=== PATIENT | female | born 1960 | race Caucasian/White ===

== ENCOUNTER → 2017-12-10 | Outpatient (CLI) | payer BC ==
[2017-12-10 10:37] LABS: BASO % 0.7 % (0.0-1.0); EOS # 0.1 10^3/uL (0.0-0.50); EOS % 2.1 % (0.0-3.0); HEMATOCRIT 34.6 % (36.0-47.0); HEMOGLOBIN 10.7 g/dl (12.0-15.5); IMMATURE GRANULOCYTE % 0.4 % (0-3.0); LYMPH # 2.1 10^3/uL (1.5-4.5); LYMPH % 36.6 % (24.0-44.0); MEAN CORPUSCULAR HEMOGLOBIN 24.4 pg (27.0-33.0); MEAN CORPUSCULAR HGB CONC 30.9 g/dl (32.0-36.5); MEAN CORPUSCULAR VOLUME 78.8 fl (80.0-96.0); MONO # 0.4 10^3/uL (0.0-0.8); MONO % 7.8 % (0.0-5.0); NEUTROPHILS % 52.4 % (36.0-66.0); PLATELET COUNT, AUTOMATED 223 10^3/uL (150-450); RED BLOOD COUNT 4.39 10^6/uL (4.00-5.40); RED CELL DISTRIBUTION WIDTH 15.7 % (11.5-14.5); WHITE BLOOD COUNT 5.7 10^3/uL (4.0-10.0)
[2017-12-10 11:02] LABS: ALBUMIN 3.3 GM/DL (3.2-5.2); ALBUMIN/GLOBULIN RATIO 0.97 (1.00-1.93); ALKALINE PHOSPHATASE 109 U/L (45-117); ALT/SGPT 18 U/L (12-78); ANION GAP 8 MEQ/L (8-16); AST/SGOT 11 U/L (7-37); BILIRUBIN,TOTAL 0.4 MG/DL (0.2-1.0); BLOOD UREA NITROGEN 15 MG/DL (7-18); CALCIUM LEVEL 8.4 MG/DL (8.5-10.1); CARBON DIOXIDE LEVEL 26 MEQ/L (21-32); CHLORIDE LEVEL 113 MEQ/L (98-107); CHOLESTEROL LEVEL 184 MG/DL (<200); CHOLESTEROL RISK RATIO 3.066 (<5); CREATININE FOR GFR 0.83 MG/DL (0.55-1.30); GLOMERULAR FILTRATION RATE > 60.0 (>51); GLUCOSE, FASTING 87 MG/DL (70-100); HDL CHOLESTEROL 60 MG/DL (>40); NON-HDL-C 124 MG/DL; POTASSIUM SERUM 4.1 MEQ/L (3.5-5.1); SODIUM LEVEL 147 MEQ/L (136-145); TOTAL PROTEIN 6.7 GM/DL (6.4-8.2); TRIGLYCERIDES LEVEL 110 MG/DL (<150)
== END ==
LOC: M LAB 09:35
DX: I10 Essential (primary) hypertension (principal)
CPT/HCPCS: 84443

== ENCOUNTER → 2017-12-13 | Outpatient (REF) | payer BC ==
[2017-12-14 14:11] LABS: FERRITIN 4 NG/ML (8-252)
== END ==
LOC: M LAB REF 12-14 13:23
DX: D50.9 Iron deficiency anemia, unspecified (principal); Z98.84 Bariatric surgery status
CPT/HCPCS: 82728

== ENCOUNTER → 2018-04-18 | Outpatient (REF) | payer BC ==
[2018-04-18 16:39] LABS: FERRITIN 4 NG/ML (8-252)
== END ==
LOC: M LAB REF 15:52
DX: D50.9 Iron deficiency anemia, unspecified (principal)
CPT/HCPCS: 82728

== ENCOUNTER → 2018-10-20 | Outpatient (CLI) | payer BC ==
[~2018-10-20] MED LIST: /FEXO18TA PO; ADV250INH INH; BENA25CA PO; BLINK EYE DROPS OU; CELE1CAP4 PO; COUM1TAB18 PO; LISI20TA PO; LISINOPRIL/HCTZ PO; LISIPOW PO; MAPA500T17 PO; NORVASC PO; OMEPPOW18 PO; OXYC1TAB23 PO; OXYC30TA4 PO; PERC7.5T12 PO; PROVENTIL INHALER INH; TYLE325T5 PO; TYLENOL PO; VENTAER INH; VITAMIN D PO; ZOLOFT PO
--- NOTE | 2018-10-20 10:57 | REP ---
Clinical: Contusion. Technique: AP, lateral, bilateral oblique views of the left wrist. Findings: Subtle injury involving the ulnar styloid cannot be excluded and may represent acute versus chronic injury. Clinical correlation is recommended. Remainder of the left wrist appears normal and without further acute injury. Impression: Cannot exclude very subtle acute versus chronic injury to the ulnar styloid. Electronically Signed by Tom Peralta MD 10/20/2018 10:49 A
== END ==
LOC: M ADAMS 10:28
PROVIDERS: ATTEND Physician Assistant Medical
DX: S60.212A Contusion of left wrist, initial encounter (principal); X58.XXXA Exposure to other specified factors, initial encounter; Y92.9 Unspecified place or not applicable

== ENCOUNTER → 2020-05-20 | Outpatient (REF) | payer BC ==
[2020-05-21 13:06] LABS: C REACTIVE PROTEIN QUANTITATIV 0.35 MG/DL (0.00-0.30); RHEUMATOID FACTOR QUANT < 10.0 IU/ML (<15.0)
[2020-05-23 12:07] LABS: ANTINUCLEAR ANTIBODIES DIRECT Negative (Negative)
== END ==
LOC: M LAB REF 12:16
PROVIDERS: ATTEND Family Medicine
DX: M25.50 Pain in unspecified joint (principal)

== ENCOUNTER → 2020-12-28 | Outpatient (REF) | payer BC ==
[~2020-12-28] MED LIST changes: +ALBU83IN INH; +AMLO1TAB25 PO; +AZEL0.055; +CEPH500T PO; +CHLO25TA PO; +FAMO1TAB11 PO; +LISI40TA4 PO; +MULT1TAB8 PO; +NITR100C2; +NOXI1TAB PO; +OMEP1CAP73 PO; +SERT-141 PO; +SLOW142T5 PO; +SPIR-10 PO
== END ==
LOC: M LAB REF 12:23
PROVIDERS: ATTEND Family Medicine
DX: D64.9 Anemia, unspecified (principal)

== ENCOUNTER → 2021-03-01 | Outpatient (CLI) | payer BC ==
[~2021-03-01] MED LIST changes: -ALBU83IN INH; -AMLO1TAB25 PO; -AZEL0.055; -CEPH500T PO; -CHLO25TA PO; -FAMO1TAB11 PO; -LISI40TA4 PO; -MULT1TAB8 PO; -NITR100C2; -NOXI1TAB PO; -OMEP1CAP73 PO; +PROHANCE 279.3MG/ML 15ML VIAL As Ordered ONE; +PROHANCE 279.3MG/ML 5ML VIAL As Ordered ONE; -SERT-141 PO; -SLOW142T5 PO; -SPIR-10 PO
--- NOTE | 2021-03-04 08:45 | REP ---
INDICATION: ABNORMAL FINDINGS ON DX IMAGING OF [facility] BODY STRUCTURES. COMPARISON: CT from outside institution dated 01/31/2021 TECHNIQUE: Limited noncontrast MRI of the mediastinum including T1, T2, and fat saturated coronal and axial sequences. FINDINGS: Evaluation is limited due to cardiac and respiratory motion artifact. The suspicious anterior mediastinal abnormality suggested by prior CT corresponds to a nodular area in the anterior mediastinum/aortopulmonary window which contains nodular soft tissue and surrounding fat measuring roughly 3.4 x 2.1 x 2.5 cm likely represent conglomerate of nonspecific and likely normal lymph nodes versus small amount of residual thymic tissue. In correlation with recent CT, the findings appear essentially benign. Further evaluation of the mediastinum demonstrates relatively normal appearance to the thoracic aorta, pulmonary vasculature, and visualized portions of the heart/pericardium. Subtle patchy bilateral airspace disease cannot be excluded and should be correlated clinically. IMPRESSION: 1. Abnormality in question likely represents nonspecific benign conglomerate of normal sized lymph nodes versus small amount of residual thymic tissue. Evaluation by MRI is limited due to associated cardiac motion. Consider follow-up contrast-enhanced chest CT at 6-9 months to confirm stability/benignity. 2. Limited views of the surrounding lung zones suggests subtle patchy airspace disease which should be correlated with auscultation and physical examination. <Electronically signed by Tom Peralta > 03/04/21 [id number]
== END ==
LOC: M RAD 17:32
PROVIDERS: ATTEND Physician Assistant Medical
DX: R93.89 Abnormal findings on diagnostic imaging of other specified body structures (principal)
CPT/HCPCS: 71550; A9576

== ENCOUNTER → 2021-03-05 | Outpatient (CLI) | payer BC ==
[~2021-03-05] MED LIST changes: -PROHANCE 279.3MG/ML 15ML VIAL As Ordered ONE; -PROHANCE 279.3MG/ML 5ML VIAL As Ordered ONE
--- NOTE | 2021-03-08 17:00 | SLEEPCENT ---
DATE: 03/05/2021 ORDERED BY: RIVER Mandujano Nocturnal polysomnography was performed for the titration of pressure therapy in this patient with obstructive sleep apnea syndrome, apnea hypopnea index of 37.1. For testing, the patient was fit with a ResMed F20 full face mask of medium size, 14 cm of water pressure were applied to the circuit and the lights were extinguished. Nine hours and 4 minutes of data were reviewed. There were 354 minutes of sleep identified. Sleep latency was prolonged at 34.5 minutes, REM latency was prolonged at 430 minutes. Sleep architecture improved late in the study and there was one REM cycle. Overall, sleep efficiency 66%. The electrocardiogram showed a sinus rhythm with an average heart rate of 55 beats per minute. EEG showed normal waveforms for wake and sleep. Respiratory events were fully palliated with CPAP to a pressure of 16. There is some activity in the limb leads. Limb movement arousal index was 11.5. IMPRESSIONS: Obstructive sleep apnea syndrome (G47.33). RECOMMENDATION: Nightly use of pressure therapy 16 cm of water. cc: PASCALE BENNETT MD
== END ==
LOC: M SLEEP 20:00
PROVIDERS: ATTEND Physician Assistant
DX: G47.33 Obstructive sleep apnea (adult) (pediatric) (principal)

== ENCOUNTER → 2021-03-15 | Outpatient (CLI) | payer BC ==
--- NOTE | 2021-03-15 15:17 | REP ---
INDICATION: BILATERAL DIAG DENSITY SEEN ON CT/LEFT. COMPARISON: Screening mammogram, 03/06/2013 and bilateral breast ultrasound, same day. TECHNIQUE: 2D and 3D cc and MLO images of both breasts were obtained. Focal compression 3D images of the left breast were obtained. Multiple ultrasound images of both breasts were obtained. FINDINGS: The Volpara volumetric breast density pattern is a, the breasts are almost entirely fatty. There is a circumscribed mass in the upper-outer quadrant of the left breast demonstrating dystrophic calcifications consistent with a benign degenerating fibroadenoma. In the middle 3rd of the left breast, below and medial to the nipple, in the lower inner quadrant, there is an oval, circumscribed, isodense mass measuring 14 mm in diameter. In the anterior 3rd of the right breast, directly deep to and lateral to the nipple, at the 9 o'clock position, there is an oval, circumscribed, isodense mass measuring 9 mm in diameter. Right breast ultrasound: 10 o'clock, 5 cm from the nipple, 4 x 4 x 3 mm, simple cyst. Left breast ultrasound: 9 o'clock, 7 cm from the nipple, 10 x 7 x 7 mm, oval, circumscribed, hypoechoic mass, with no posterior features. Shear wave in stress elastography are consistent with benignity. IMPRESSION: BIRADS/ACR 2: Benign finding This mammogram was interpreted with the aid of an FDA-approved computer-aided detection system. The patient letter being requested is M2. RECOMMENDATION: Repeat screening mammography recommended 1 year (for women over 40). <Electronically signed by Mynor Tenorio > 03/15/21 [id number]
== END ==
LOC: M WHC 10:40
PROVIDERS: ATTEND Physician Assistant Medical
DX: R93.89 Abnormal findings on diagnostic imaging of other specified body structures (principal); N63.25 Unspecified lump in the left breast, overlapping quadrants
CPT/HCPCS: 76642; 77066; G0279

== ENCOUNTER → 2021-03-26 | Outpatient (CLI) | payer BC ==
[~2021-03-26] MED LIST changes: +ALBU83IN INH; +AMLO1TAB25 PO; +CHLO25TA PO; +LISI40TA4 PO; +OMEP1CAP73 PO; +SERT-141 PO; +SPIR-10 PO
== END ==
LOC: M LABSMTC 09:14
PROVIDERS: ATTEND Anesthesiology
DX: Z01.812 Encounter for preprocedural laboratory examination (principal); Z20.822 Contact with and (suspected) exposure to COVID-19

== ENCOUNTER → 2021-03-31 | Outpatient (CLI) | payer BC ==
[~2021-03-31] MED LIST changes: +CEPH500T PO
== END ==
LOC: M LABSMTC 12:48
PROVIDERS: ATTEND Anesthesiology
DX: Z01.818 Encounter for other preprocedural examination (principal); Z11.52 Encounter for screening for COVID-19

== ENCOUNTER 2021-04-01 07:29 | Day surgery (SDC) | payer BC ==
[~2021-04-01] VITALS: Ht 162.6 cm; Wt 123.5 kg
[~2021-04-01 07:29] MED LIST changes: -CEPH500T PO; +LIDOCAINE 2% 100MG/5ML SDV (FOR ANES.) As Ordered ONE; +NS 1,000 ML IV ONE; +fentaNYL 100 MCG/2 ML INJECTION (J3010) As Ordered ONE; +propofoL 200 MG/20 ML VIAL As Ordered ONE
--- OUTSIDE RECORDS SUMMARY | 2021-04-01 07:35 | CCD | Continuity of Care Document ---
Author Author Cheyenne ROGERS PA Organization Unknown Address [address] [place] [address] Phone [phone] Care Team Providers Care Button Riveter Name Role Phone Carter Silva M.D. [facility] [phone] Problems Active Problems Provider Date Acute pharyngitis Shlomo Hill.Pop Onset: 09/11/2018 Cough Imtiaz Norman D.O. Onset: 09/26/2016 Mild intermittent asthma Shaun HillO. Onset: 09/27/19 17 Obstructive sleep apnea syndrome Shlomo Hill.O. Onset: 03/16/2016 Mild intermittent asthma Imtiaz Norman D.O. Onset: 03/16/20 16 Essential hypertension Tariq Davis JR, MD Onset: 01/28/20 21 Allergic asthma without status asthmaticus Tariq Mandujano MD Onset: 01/27/2021 Social History Type Date Description Comments Sex Unknown ETOH Use Rarely consumes alcohol less amarjit n 5 drinks a year Tobacco Use Start: Unknown Denies Smoking Recreational Drug Use Denies Drug Use Smoking Status Reviewed: 02/09/21 Denies Smoking Allergies, Adverse Reactions, Alerts Active Allergies Criticality Reaction | Severity Comments Date Catapres-TTS Unable to assess criticality 03/16/2016 Tetracyclines & Related Unable to assess criticality 03/16/2016 Medications Active Medications SIG Qnty Indications Ordering Provide r Date Ventolin HFA 108(90Base) mcg/Act A erosol Use 2 Inhalations Every 4 Hours as Needed 54units Imtiaz vicente, D.O. 03/06/2018 Ipratropium [place]/Albuterol Sulfate 0.5-2.5(3)mg/3ML Solution 1 vial via neb four times a day as needed 360ml Imtiaz Norman D.O. 03/06/2018 Montelukast Sodium 10mg Tablets Take 1 Tablet Daily 90tabs J45.20 Imtiaz Norman D.O. 09/26/2016 CPAP +14 LCW Unknown Vitamin D (Ergocalciferol) [id number] Capsules take one capsule by mouth once weekly Unk nown Iron 325(65Fe) mg Tablets 1 by mouth every day Unknown Multivitamin Adult Tablets 1 by mouth every day Unknown Spironolactone 25mg Tablets 1 by mouth every day Unknown Chlorthalidone 1 tab by mouth every day Unknown Amlodipine Besylate 10mg Tablets One tab daily Carter Silva M.D. Sertraline HCL 100mg Tablets One tab daily Carter Silva M.D. Lisinopril 40mg Tablets one t ab daily Carter Silva M.D. Omeprazole Unknown Immunizations CPT Code Status Date Vaccine Lot # [id number] Given 03/16/2016 Influenza Virus Split 3 Yrs And Above For Intramuscular Use [id number] Vital Signs Date Vital Result Comment 02/09/2021 9:08am BP Systolic 125 mmHg BP Diastolic 78 mmHg Heart Rate 82 /min O2 % BldC Oximetry 99 % Height 64.75 inches 5'4.75" Weight 271.00 lb BMI (Body Mass Index) 45.4 kg/m2 [place] Body Weight 120 lb Weight 122.926 kg BSA (Body Surface Area) 2.24 m2 01/27/2021 9:16am BP Systolic 137 mmHg BP Diastolic 83 mmHg Heart Rate 61 /min Body Temperature 97.8 F Height 64.75 inches 5'4.75" Weight 273.38 lb BMI (Body Mass Index) 45.8 kg/m2 [place] Body Weight 120 lb Weight 124.003 kg BSA (Body Surface Area) 2.25 m2 Results Test Acquired Date Facility Test Result H/L Range Note FVL/[place] 02/09/2021 [facility] SEE IMAGE FVC-Pred 3.21 L FVC-Pre 3.92 L FVC-%Pred-Pre 122 L FVC-LLN 2.54 L Fev1-Pred 2.49 L Fev1-Pre 3.08 L Fev1-%Pred-Pre 123 L Fev1-LLN 1.92 L Fev6-Pred 3.10 L Fev6-Pre 3.92 L Fev6-%Pred-Pre 126 L Fev6-LLN 2.44 L Gqt0ooh-Jjzw 78 % Zhn3nyn-Yfx 79 % Vtl2zgk-%Pred-Pre 100 % Czh1sue-LFE 68 % Rhq7los-Plww 97 % Pkj0hyu-Ndt 100 % Dua1vqg-%Pred-Pre 103 % FEFMax-Pred 6.19 L/E/sec FEFMax-Pre 5.83 L/E/sec FEFMax-%Pred-Pre 94 L/E/sec FEFMax-LLN 4.53 L/E/sec Nnm2650-Tkqm 2.34 L/E/sec Pjv3829-Xht 2.87 L/E/sec Lir5232-%Pred-Pre 122 L/E/sec Boa3364-CZQ 1.13 L/E/sec ExpTime-Pre 5.99 sec Yls0ixg1-Emlo 81 % Kpj9ujo3-Amz 79 % Iou7qhv6-%Pred-Pre 97 % Csq5vbj1-MGS 72 % Procedures Date Code Description Status 01/27/2021 95274 Office/Outpatient New Low MDM 30 -44 Minutes Completed Medical Devices Description No Information Available Encounters Type Date Location Provider Dx Diagnosis Office Visit 01/27/2021 9:15a [facility] Tariq celestin JR, MD K21.9 Gastro-esophageal reflux disease without esophagitis Z12.11 Encounter for screening for malignant neoplasm of colon Assessments Date Code Description Provider 02/09/2021 J45.20 Mild intermittent asthma, uncomp licated REUBEN Ordoñez 02/09/2021 G47.33 Obstructive sleep apnea (adult) (pediatric) REUBEN Ordoñez 01/27/2021 K21.9 Gastro-esophageal reflux disease without esophagitis Tariq Davis JR, MD 01/27/2021 Z12.11 Encounter for screening for gigi gnant neoplasm of colon Tariq Davis JR, MD Plan of Treatment Future Appointment(s):* 04/28/2021 8:30 am - REUBEN Ordoñez at [facility] Pulmonary/Thoracic * 03/05/2021 7:45 pm - [facility] Sleep Lab at [facility] Pulmonary/Thoracic * 04/14/2021 11:00 am - REUBEN Matthew at [facility] Surgery Practice * 04/01/2021 8:00 am - Tariq Davis JR, MD at [facility] 02/09/2021 - REUBEN Ordoñez* J45.20 Mild intermittent asthma, uncomplicated * G47.33 Obstructive sleep apnea (adult) (pediatric) * * Comments:* 1. Given weight gain, intolerance to pressure therapy and ongoing daytime sleepiness despite therapy, [facility]she [facility]. * Follow up:* 1. Follow up six-eight weeks after retitration with a download to monitor compliance and tolerance of pressure therapy. Functional Status Functional Condition Comment Date Status Independent with all ADL's Activ e Independent with all IADL's Acti ve Mental Status Mental Condition Comment Date Status Cognitive ability not impaired A ctive Referrals Refer to Reason for Referral Status Appt Date Tariq Davis JR, MD EGD COLONOSCOPY Scheduled 01/28/[address] [place] [id number] [phone]
--- OUTSIDE RECORDS SUMMARY | 2021-04-01 07:35 | CCD | Continuity of Care Document ---
Author Author Cheyenne ROGERS PA Organization Unknown Address [address] [place] [address] Phone [phone] Care Team Providers Care Electric Shaver Mechanic Name Role Phone Carter Silva M.D. [facility] [phone] Problems Active Problems Provider Date Acute pharyngitis [...] Needed 54units Imtiaz vicente, D.O. 03/06/2018 Ipratropium [place]/Albuterol Sulfate 0.5-2.5(3)mg/3ML Solution 1 vial via neb four times a day as needed 360ml Imtiaz Norman D.O. 03/06/2018 Montelukast Sodium 10mg Tablets Take 1 Tablet Daily 90tabs J45.20 Imtiaz Norman D.O. 09/26/2016 CPAP +14 LCW Unknown Vitamin D (Ergocalciferol) 35232Ktyt Capsules take one capsule by mouth once [...] CPT Code Status Date Vaccine Lot # [id number] Given 03/16/2016 Influenza Virus Split 3 Yrs And Above For Intramuscular Use [id number] Vital Signs Date Vital Result Comment 02/09/2021 9:08am BP Systolic 125 mmHg BP Diastolic 78 mmHg Heart Rate 82 /min O2 % BldC Oximetry 99 % Height 64.75 inches 5'4.75" Weight 271.00 lb BMI (Body Mass Index) 45.4 kg/m2 [place] Body Weight 120 lb Weight 122.926 kg BSA (Body Surface Area) 2.24 m2 01/27/2021 9:16am BP Systolic 137 mmHg BP Diastolic 83 mmHg Heart Rate 61 /min Body Temperature 97.8 F Height 64.75 inches 5'4.75" Weight 273.38 lb BMI (Body Mass Index) 45.8 kg/m2 [place] Body Weight 120 lb Weight 124.003 kg [...] L Fev6-%Pred-Pre 126 L Fev6-LLN 2.44 L Aip4rpk-Olwa 78 % Tlw1css-Imw 79 % Ogd8jro-%Pred-Pre 100 % Sqf5nux-PIG 68 % Xqk7zwe-Vovg 97 % Hdj1lhk-Ail 100 % Pff5iji-%Pred-Pre 103 % FEFMax-Pred 6.19 L/E/sec FEFMax-Pre 5.83 L/E/sec FEFMax-%Pred-Pre 94 L/E/sec FEFMax-LLN 4.53 L/E/sec Yyg0641-Tsyu 2.34 L/E/sec Kej5112-Vts 2.87 L/E/sec Frp5151-%Pred-Pre 122 L/E/sec Chs7660-ZJV 1.13 L/E/sec ExpTime-Pre 5.99 sec Bzw8oiv1-Zkhq 81 % Dmf7kgn6-Dop 79 % Dyt2wjf8-%Pred-Pre 97 % Aay1rcj9-SWM 72 % Procedures Date Code Description Status 01/27/2021 42463 Office/Outpatient New Low MDM 30 -44 Minutes Completed Medical Devices Description No Information Available Encounters Type Date Location Provider Dx Diagnosis Office Visit 01/27/2021 9:15a [facility] Tariq celestin JR, MD K21.9 [...] 04/28/2021 8:30 am - REUBEN Ordoñez at [facility] Pulmonary/Thoracic * 03/05/2021 7:45 pm - [facility] at [facility] Pulmonary/Thoracic * 04/14/2021 11:00 am - REUBEN Matthew at [facility] * 04/01/2021 8:00 am - Tariq Davis JR, MD at [facility] 02/09/2021 - REUBEN Ordoñez* J45.20 Mild [...] JR, MD EGD COLONOSCOPY Scheduled 01/28/[address] [place] [id number] [phone]
--- OUTSIDE RECORDS SUMMARY | 2021-04-01 07:35 | CCD | Continuity of Care Document ---
Author Author Cheyenne BENNETT M.D. Organization Unknown Address [address] [address] Phone [phone] Care Team Providers Care Table Top Tile Setter Name Role Phone Imtiaz Norman AUTM [phone] Carter Bennett MD AUTM [phone] Problems Active Problems Provider Date Esophageal reflux finding Onset: 010 Degenerative joint disease involving multiple joints Onset: 03/30/2009 Drug-induced hyperglycemia Onset: 2007 Allergic rhinitis Onset: 04/17/2008 Asthma Onset: 04/12/2008 Depressive disorder Onset: 03/30/2008 Hypertensive disorder Onset: 09/22/2007 Central obesity Onset: 04/20/2007 Mixed hyperlipidemia Onset: 12/31/2006 Social History Type Date Description Comments Sex Unknown ETOH Use Rarely consumes alcohol Tobacco Use Start: Unknown Patient has never smoked Allergies, Adverse Reactions, Alerts Active Allergies Criticality Reaction | Severity Comments Date Tetracycline Unable to assess criticality Moderate 03/18/2013 Catapres Unable to assess criticality Moderate 03/18/2013 Perfume HT52 Unable to assess criticality Severe, throat swelling 09/28/2011 Medications Active Medications SIG Qnty Indications Ordering Provide r Date Atorvastatin Calcium 20mg Tablets 1 by mouth every day (Cardiology) 90tabs Contreras Kim 12/28/2020 Vitamin D3 50mcg (1999) Capsule s 1 by mouth every day 30chivo Bennett M.D. 08/12/[address] 1 by mouth every day 90chivo Bennett M.D. 06/02/2020 Sertraline HCL 100mg Tablets 1 by mouth every day 90Tablet Carter Bennett M.D. 05/28/2019 Spironolactone 25mg Tablets 1 by mouth every day 90tabs I10 Carter Bennett M.D. 01/19/2016 Ferrous Sulfate 325mg Tablets one tab PO daily 90tabs E61.1 Carter Bennett M.D. 12/02/2015 Nasonex 50mcg/Act Suspension 1 spray each nostril twice a day as needed 17gm Ysabel Kim 10/14/2015 Norvasc 10mg Tablets 1 tablet, 1 time per day, for 90 days 90tabs Carter Bennett M.D. Epipen 2-Saeed 0.3mg/0 .3ML Solution Auto-Inject use as directed, for 90 days Unknown Symbicort 160-4.5mcg/Act Aerosol 2 inhalations twice daily 3units Carter Bennett M.D. Lisinopril 40mg Tablets 1 by mouth every day 90tabs Carter Bennett M.D. Chlorthalidone 25mg Tablets take one tablet by mouth every morning 90tabs Ysabel Kim Montelukast Sodium 10mg Tablets one before bedtime daily Unknown History Medications Amoxicillin/Clavulanate Potassium 875-125mg Tablets 1 tab by mouth twice daily for 10 days 20tabs Adama Bennett M.D. 08/03/2020 - 12/28/2020 Immunizations CPT Code Status Date Vaccine Lot # U-Flu Given 02/20/2018 Influenza,Unspecified 24300 Given 03/05/2014 Influenza Virus Vaccine 00145 Given 02/26/2013 Influenza Virus Vaccine 69688 Given 01/16/2013 Adacel- Tetanus Diphtheria P ertussis (Age64 & Under) 66833 Given 03/07/2012 Influenza Virus Vaccine 00409 Given 2010 Influenza Virus Vaccine Vital Signs Date Vital Result Comment 12/28/2020 12:01pm BP Systolic 152 mmHg BP Diastolic 80 mmHg BP Systolic Recheck 155 mmHg BP Diastolic Recheck 82 mmHg Heart Rate 78 /min Height 63 inches 5'3" Weight 272.00 lb BMI (Body Mass Index) 48.2 kg/m2 08/03/2020 1:00pm BP Systolic 148 mmHg BP Diastolic 90 mmHg BP Systolic Recheck 132 mmHg BP Diastolic Recheck 85 mmHg Heart Rate 76 /min Height 63 inches 5'3" Weight 267.00 lb BMI (Body Mass Index) 47.3 kg/m2 Results Test Acquired Date Facility Test Result H/L Range Note Laboratory test finding 12/28/2020 [facility] [address] [place] [address] [phone] Ferritin 5 NG/ML Low 8-252 Complete Blood Count 12/28/2020 [facility] [employer] [employer] [facility] Director Emergency Services: [place] [address] [phone] WBC 6.0 x10*3/UL 4.1 - 10.9 1 RBC 4.96 x10*6/UL 4.20 - 6.30 Hemoglobin 10.9 g/dL Low 12.0 - 18.0 Hematocrit 33.8 % Low 37.0 - 51.0 MCV 68.1 fL Low 80.0 - 97.0 MCH 21.9 pg Low 26.0 - 32.0 MCHC 32.1 g/dL 31.0 - 38.0 RDW 15.3 % High 11.6 - 13.7 PLT 267 x10*3/UL 140 - 440 MPV 8.5 FL 7.8 - 11.0 Lymph % 34.5 % 10.0 - 58.5 Mid % 7.3 % 1.7 - 9.3 Neut % 58.2 % 37.0 - 92.0 Lymph # 2.0 x10*3/UL 0.6 - 4.1 Mid # 0.5 x10*3/UL 0.1 - 0.6 Neut # 3.5 x10*3/UL 2.0 - 7.8 Comprehensive Chem Profile 12/28/2020 [facility] deysi Taylor Director Emergency Services: [place] [address] [phone] Glucose 101 mg/dL High 74 - 99 2 BUN 17 mg/dL 7 - 18 Creatinine 0.9 mg/dL 0.6 - 1.3 Sodium 143 mEq/L 136 - 145 Potassium 3.8 mEq/L 3.5 - 5.1 Chloride 105 mEq/L 98 - 107 Carbon Dioxide 33 mEq/L High 21 - 32 Calcium 8.9 mg/dL 8.5 - 10.1 Alk. Phosphatase 154 mg/dL High 46 - 116 3 Total Bilirubin 0.3 mg/dL 0.2 - 1.0 Ast (Sgot) 14 U/L Low 15 - 37 Alt (SGPT) 22 U/L 12 - 78 Albumin 3.3 g/dL Low 3.4 - 5.0 Total Protein 6.6 g/dL 6.4 - 8.2 A/G Ratio 1.00 CALC 1.00 - 1.90 GFR >= 60 mL/min >60 GFR >= 60 mL/min >60 4 Lipid Profile 12/28/2020 [facility] , Director Emergency Services: [place] [address] [phone] Cholesterol 227 mg/dL High 131 - 200 Triglycerides 191 mg/dL High 30 - 150 HDL Cholesterol 53 mg/dL 35 - 60 LDL (Calculated) 136 CALC 50 - 159 Laboratory test finding 12/28/2020 [facility] [employer] jaziel Director Emergency Services: [place] [address] [phone] Thyroid Stimulating Hormone 3.21 uIU/mL 0.3 6 - 3.74 Laboratory test finding 12/28/2020 [facility] [employer] jakub Director Emergency Services: [place] [address] [phone] Vitamin D 25-Hydroxy 33.8 ng/ml 24.0 - 80.0 5 1 NOTE: CBC VERIFIED 2 100-125 mg/dL PRE-DIABET ES/FASTING >126 mg/dL DIABETES/FASTING 3 NOTE: RESULT VERIFIED. 4 CHRONIC KIDNEY DISEASE STAGI NG PER NKF STAGE I & II GFR >= 60 NORMAL TO MILDLY DECREASED STAGE III GFR 30-59 MODERATELY DECREASED STAGE IV GFR 15-29 SEVERELY DECREASED STAGE V GFR <15 VERY LITTLE GFR LEFT ESRD GFR <15 ON TIRE TECHNICIAN 5 This test was performed shayla cardenas [employer] Vitamin D immunoassay kit. Values obtained with different assay methods should not be used interchangeably. Procedures Date Code Description Status 12/28/2020 21353 Office/Outpatient Established Mo d MDM 30-39 Min Completed 08/03/2020 08910 Office/Outpatient Established Mo d MDM 30-39 Min Completed 03/06/2013 [id number] Mammogram Completed 07/11/2011 [id number] Colonoscopy Completed Medical Devices Description No Information Available Encounters Type Date Location Provider Dx Diagnosis Office Visit 12/28/2020 11:30a [facility] InternSherly sheriff M.D. D64.9 Anemia, unspecified R53.83 Other fatigue G47.33 Obstructive sleep apnea (laurent lt) (pediatric) I10 Essential (primary) hyperten abimael E55.9 Vitamin D deficiency, unspec ified J45.40 Moderate persistent asthma, uncomplicated F39 Unspecified mood [affective] disorder K21.9 Gastro-esophageal reflux dis ease without esophagitis Office Visit 08/03/2020 1:00p [facility] InternSherly sheriff M.D. I10 Essential (primary) hypertension G47.33 Obstructive sleep apnea (laurent lt) (pediatric) E55.9 Vitamin D deficiency, unspec ified D64.9 Anemia, unspecified J45.40 Moderate persistent asthma, uncomplicated F39 Unspecified mood [affective] disorder R51.9 Headache, unspecified R23.8 Other skin changes Z98.84 Bariatric surgery status K21.9 Gastro-esophageal reflux dis ease without esophagitis Assessments Date Code Description Provider 12/28/2020 D64.9 Anemia, unspecified Carter ballesteros M.D. 12/28/2020 R53.83 Other fatigue Carter Bennett M.D. 12/28/2020 G47.33 Obstructive sleep apnea (adult) (pediatric) Carter Bennett M.D. 12/28/2020 I10 Essential (primary) hypertension Carter Bennett M.D. 12/28/2020 E55.9 Vitamin D deficiency, unspecifie d Carter Bennett M.D. 12/28/2020 J45.40 Moderate persistent asthma, unco mplicated Carter Bennett M.D. 12/28/2020 F39 Unspecified mood [affective] dis order Carter Bennett M.D. 12/28/2020 K21.9 Gastro-esophageal reflux disease without esophagitis Carter Bennett M.D. 08/03/2020 I10 Essential (primary) hypertension Carter Bennett M.D. 08/03/2020 G47.33 Obstructive sleep apnea (adult) (pediatric) Carter Bennett M.D. 08/03/2020 E55.9 Vitamin D deficiency, unspecifie d Carter Bennett M.D. 08/03/2020 D64.9 Anemia, unspecified Carter ballesteros M.D. 08/03/2020 J45.40 Moderate persistent asthma, unco mplicated Carter Bennett M.D. 08/03/2020 F39 Unspecified mood [affective] dis order Carter Bennett M.D. 08/03/2020 R51.9 Headache, unspecified Carter pradhan M.D. 08/03/2020 R23.8 Other skin changes Carter gaviria M.D. 08/03/2020 Z98.84 Bariatric surgery status Carter Bennett M.D. 08/03/2020 K21.9 Gastro-esophageal reflux disease without esophagitis Carter Bennett M.D. Plan of Treatment Future Appointment(s):* 04/28/2021 2:30 pm - Carter [facility]D. at [facility] 12/28/2020 - Carter Bennett M.D.* D64.9 Anemia, unspecified * R53.83 Other fatigue * G47.33 Obstructive sleep apnea (adult) (pediatric) * I10 Essential (primary) hypertension * E55.9 Vitamin D deficiency, unspecified * J45.40 Moderate persistent asthma, uncomplicated * F39 Unspecified mood [affective] disorder * K21.9 Gastro-esophageal reflux disease without esophagitis * * Comments:* 1. Anemia: Chronic. Low hemoglobin and MCV. Await for ferritin level. Continue iron supplement at present dose. I have reviewed her prior colonoscopy and EGD results. She is going to have new EGD and colonoscopy soon at [facility] for anemia (she has not had as we discussed prior, I expressed my concern for her putting this off). We will continue to monitor her blood count.2. BRAD: Good results with the use of CPAP daily. Sees Bird ALEXIS & Dr. Norman at Pulmonary Medicine and will continue appropriate follow up.3. Hypertension: On recheck blood pressure remains high here but better when at home. Patient appears to have significant white coat component. We again discussed in detail today about her blood pressure control. Patient feels she is overmedicated and is not agreed to change her current regimen. She will continue to follow up with Dr. Rodriguez of Cardiology appropriately.4. Vitamin D deficiency: Added vitamin D to her labs drawn earlier today and will follow up. She had low vitamin D level on last check in 05/2019. Patient is currently on adequate supplementation. We will monitor. 5. Moderate persistent asthma: Generally stable on Symbicort. Seeing Bird at Pulmonary Medicine and will continue to use albuterol as needed. She has not seen ENT yet with history of vocal cord dysfunction.6. Mood [affective] disorder: She has been resistent to psych evaluation but has a counselor Katerin. I am going to talk with her sister regarding this and other symptoms (patient ok'd this). Otherwise, she has no thoughts or plans o f hurting herself or others. Continue present regimen as directed. We will monitor.7. Gastro-esophageal reflux disease without esophagitis: Good results with the use of omeprazole daily, will continue as directed.8. Other fatigue: This is not new, but has been worsened in the recent time after vacation. We discussed about possible etiologies in detail. She is going to see Pulmonary doctor in January and will also discuss about this. Ongoing cares: I am going to see her again in 4 months with labs to be determined. I spoke to her sister after her appointment and I am very concerned with her symptoms and lack of follow up) If she has new problems or issues sooner she will let us know. Functional Status Description No Information Available Mental Status Description No Information Available Referrals Refer to Reason for Referral Status Appt Date Tariq Davis JR, MD CONSULT FOR SCREENING EGD/CO LONOSCOPY DX: ANNALISE PT NEEDS 2 WK NOTICE FOR ANY APPTS DUE TO WORK Patient Notified 01/27/2021 [facility] General Surgery [address] [id number] [phone]
--- OUTSIDE RECORDS SUMMARY | 2021-04-01 07:35 | CCD | Continuity of Care Document ---
Author Author Cheyenne BENNETT M.D. Organization Unknown Address [address] [address] Phone [phone] Care Team Providers Care Web Services Professional Name Role Phone Imtiaz Norman AUTM [phone] Carter Bennett MD AUTM [phone] Problems Active Problems Provider Date Esophageal reflux [...] Vaccine Lot # U-Flu Given 02/20/2018 Influenza,Unspecified 68256 Given 03/05/2014 Influenza Virus Vaccine 21277 Given 02/26/2013 Influenza Virus Vaccine 89898 Given 01/16/2013 Adacel- Tetanus Diphtheria P ertussis (Age64 & Under) 84374 Given 03/07/2012 Influenza Virus Vaccine 59162 Given 2010 Influenza Virus Vaccine Vital Signs [...] H/L Range Note Laboratory test finding 12/28/2020 [facility] [address] [place] [address] [phone] Ferritin 5 NG/ML Low 8-252 Complete Blood Count 12/28/2020 [employer] [facility] Senior Copywriter: [place] [address] [phone] WBC 6.0 x10*3/UL 4.1 - 10.9 1 [...] 2.0 - 7.8 Comprehensive Chem Profile 12/28/2020 [employer] deysi Taylor Senior Copywriter: [place] [address] [phone] Glucose 101 mg/dL High 74 - 99 [...] 60 mL/min >60 4 Lipid Profile 12/28/2020 [employer] [facility] Senior Copywriter: Dr Geronimo [place] [address] [phone] Cholesterol 227 mg/dL High 131 - 200 Triglycerides 191 mg/dL High 30 - 150 HDL Cholesterol 53 mg/dL 35 - 60 LDL (Calculated) 136 CALC 50 - 159 Laboratory test finding 12/28/2020 [employer] Catering Driver jaziel Senior Copywriter: Dr Geronimo [place] [address] [phone] Thyroid Stimulating Hormone 3.21 uIU/mL 0.3 6 - 3.74 Laboratory test finding 12/28/2020 [employer] Catering Driver jakub Senior Copywriter: Dr Geronimo [place] [address] [phone] Vitamin D 25-Hydroxy 33.8 ng/ml 24.0 - [...] LITTLE GFR LEFT ESRD GFR <15 ON S[employer] HELPER 5 This test was performed shayla cardenas [employer] Vitamin D immunoassay kit. Values obtained with different assay methods should not be used interchangeably. Procedures Date Code Description Status 12/28/2020 24723 Office/Outpatient Established Mo d MDM 30-39 Min Completed 08/03/2020 00608 Office/Outpatient Established Mo d MDM 30-39 Min Completed 03/06/2013 [id number] Mammogram Completed 07/11/2011 [id number] Colonoscopy Completed Medical Devices Description No Information [...] ease without esophagitis Office Visit 08/03/2020 1:00p [employer] InternSherly sheriff M.D. I10 Essential (primary) hypertension [...] 2:30 pm - Carter Bennett M.D. at [employer] [facility] 12/28/2020 - Carter Bennett M.D.* D64.9 [...] have new EGD and colonoscopy soon at [facility] for anemia (she has not had as [...] APPTS DUE TO WORK Patient Notified 01/27/2021 [facility] General Surgery [address] [id number] [phone]
--- OUTSIDE RECORDS SUMMARY | 2021-04-01 07:35 | CCD | Continuity of Care Document ---
Author Author Cheyenne DAVIS MD Organization Unknown Address [address] [address] Phone [phone] Care Team Providers Care Director Social Name Role Phone Carter Silva M.D. AUTM [phone] Problems Active Problems Provider Date Acute pharyngitis Imtiaz Norman D.O. Onset: 09/11/2018 Cough Imtiaz Norman D.O. Onset: 09/26/2016 Mild intermittent asthma Imtiaz Norman D.O. Onset: 09/27/19 17 Obstructive sleep apnea syndrome Shaun HillO. Onset: 03/16/2016 Mild intermittent asthma Imtiaz Norman [...] Use Denies Drug Use Smoking Status Reviewed: 08/03/20 Denies Smoking Allergies, Adverse Reactions, Alerts Active Allergies Criticality Reaction | Severity Comments Date Catapres-TTS Unable to assess criticality 03/16/2016 Tetracyclines & Related Unable to assess criticality 03/16/2016 Medications Active Medications SIG Qnty Indications Ordering Provide r Date Ventolin HFA 108(90Base) mcg/Act A erosol Use 2 Inhalations Every 4 Hours as Needed 54units Imtiaz vicente, D.O. 03/06/2018 Ipratropium [place]/Albuterol Sulfate 0.5-2.5(3)mg/3ML Solution 1 vial via neb four times a day as needed 360ml Imtiaz Norman D.O. 03/06/2018 Montelukast Sodium 10mg Tablets Take 1 Tablet Daily 90tabs J45.20 Imtiaz Norman D.O. 09/26/2016 CPAP +14 LCW Unknown Vitamin D (Ergocalciferol) 64726Hdka Capsules take one capsule by mouth once [...] one t ab daily Carter Silva M.D. Immunizations CPT Code Status Date Vaccine Lot # [id number] Given 03/16/2016 Influenza Virus Split 3 Yrs And Above For Intramuscular Use [id number] Vital Signs Date Vital Result Comment 01/27/2021 9:16am BP Systolic 137 mmHg BP Diastolic 83 mmHg Heart Rate 61 /min Body Temperature 97.8 F Height 64.75 inches 5'4.75" Weight 273.38 lb BMI (Body Mass Index) 45.8 kg/m2 [place] Body Weight 120 lb Weight 124.003 kg BSA (Body Surface Area) 2.25 m2 08/03/2020 8:49am BP Systolic 140 mmHg BP Diastolic 86 mmHg Heart Rate 68 /min O2 % BldC Oximetry 97 % Room Air Height 63 inches 5'3" Weight 267.00 lb BMI (Body Mass Index) 47.3 kg/m2 [place] Body Weight 115 lb Weight 121.111 kg BSA (Body Surface Area) 2.19 m2 Results Test Acquired Date Facility Test Result H/L Range Note FVL/[place] 08/03/2020 [facility] SEE IMAGE FVC-Pred 3.21 L FVC-Pre 3.44 L FVC-%Pred-Pre 107 L FVC-LLN 2.54 L Fev1-Pred 2.49 L Fev1-Pre 2.72 L Fev1-%Pred-Pre 109 L Fev1-LLN 1.92 L Fev6-Pred 3.10 L Fev6-Pre 3.44 L Fev6-%Pred-Pre 110 L Fev6-LLN 2.44 L Mhb6kjv-Iwnh 78 % Fnf4vgy-Fjm 79 % Ldg6hwr-%Pred-Pre 101 % Nyc5srq-OQE 68 % Rfj0qsn-Repj 97 % Isw7pbx-Myu 100 % Xyd8rld-%Pred-Pre 103 % FEFMax-Pred 6.19 L/E/sec FEFMax-Pre 5.44 L/E/sec FEFMax-%Pred-Pre 87 L/E/sec FEFMax-LLN 4.53 L/E/sec Wpw9150-Ulno 2.34 L/E/sec Joi0579-Efu 2.57 L/E/sec Mdj0963-%Pred-Pre 110 L/E/sec Hgt5235-WWP 1.13 L/E/sec ExpTime-Pre 4.86 sec Fgz3okf1-Tzte 81 % Nuk9qtb1-Ezh 79 % Zcs8xml1-%Pred-Pre 97 % Blu8pke9-YNT 72 % Procedures Date Code Description Status 08/03/2020 68064 Office/Outpatient Established Lo w MDM 20-29 Min Completed 08/03/2020 41326 Spirometry Completed Medical Devices Description No Information Available Encounters Type Date Location Provider Dx Diagnosis Office Visit 08/03/2020 9:00a [facility] Pulmonary/Thoracic REUBEN Ordoñez J45.20 Mild intermittent asthma, uncomplicated G47.33 Obstructive sleep apnea (laurent lt) (pediatric) Assessments Date Code Description Provider 08/03/2020 J45.20 Mild intermittent asthma, uncomp licated REUBEN Ordoñez 08/03/2020 G47.33 Obstructive sleep apnea (adult) (pediatric) REUBEN Ordoñez Plan of Treatment Future Appointment(s):* 02/09/2021 9:30 am - Imtiaz Norman D.O. at [facility] Pulmonary/Thoracic 08/03/2020 - REUBEN Ordoñez* J45.20 Mild intermittent asthma, uncomplicated * G47.33 Obstructive sleep apnea (adult) (pediatric) * * New Labs:* FVL/[place], Scheduled: 02/09/21 * Follow up:* Follow up in 6 months with yessica, with Dr Norman Functional Status Functional Condition Comment Date Status Independent with all ADL's Activ e Independent with all IADL's Acti ve Mental Status Mental Condition Comment Date Status Cognitive ability not impaired A ctive Referrals Refer to Reason for Referral Status Appt Date Tariq Davis JR, MD EGD COLONOSCOPY Scheduled 01/28/[address] [place] [address] [phone]
--- OUTSIDE RECORDS SUMMARY | 2021-04-01 07:35 | CCD | Continuity of Care Document ---
Author Author Cheyenne ROMAN MT Organization Unknown Address [address] [place] [address] [place] [address] Phone [phone] Care Team Providers Care Patent Prosecution Attorney Name Role Phone Carter Silva MD [facility] [phone] Problems Description No Information Available Social History Type Date Description Comments Sex Unknown Tobacco Use Start: Unknown Never Smoked Cigarettes Smoking Status Reviewed: 03/29/21 Never Smoked Cigarettes ETOH Use Occasionally consumes alcohol Allergies and adverse reactions Active Allergies Criticality Reaction | Severity Comments Date Tetracycline Unable to assess criticality rash 10/20/2018 Catapres Unable to assess criticality rash 10/20/2018 Inactive Allergies NKDA Unable to assess criticality 10/20/2018 Medications Active Medications SIG Qnty Indications Ordering Provide r Date Cephalexin 500mg Tablets 1 tab by mouth q6 hours for 7 days 28tabs L03.211 Geronimo Tesfaye JR., M.D. Lisinopril 10mg Tablets 1 by mouth every day Unknown Norvasc 5mg Tablets 1 by mouth every day Unknown Spironolactone 25mg Tablets Unknown Chlorthalidone 25mg Tablets Unknown Amlodipine Besylate 10mg Tablets Carter Silva MD Atorvastatin Calcium 10mg Tablets Unknown Ventolin HFA 108(90Base) mcg/Act A erosol Imtiaz Norman,DO Montelukast Sodium 10mg Tablets Imtiaz Norman,DO Symbicort 160-4.5mcg/Act Aerosol Imtiaz Norman,DO Ipratropium [place]/Albuterol Sulfate 0.5-2.5(3)mg/3ML Solution Imtiaz Norman DO Metformin HCL 500mg Tablets Carter Silva MD Medications Administered in Office Medication SIG Qnty Indications Ordering Provider Date Rocephin/Ceftriaxone Sodium Injection Pe r 250 MG Injection REUBEN Shafer 12/2020 Immunizations Description No Information Available Vital Signs Date Vital Result Comment 03/29/2021 2:12pm BP Systolic 134 mmHg BP Diastolic 83 mmHg Heart Rate 74 /min Respiratory Rate 20 /min O2 % BldC Oximetry 98 % Body Temperature 98.0 F Weight 272.00 lb Height 64 inches 5'4" BMI (Body Mass Index) 46.7 kg/m2 Pain Level 2 10/20/2018 10:18am BP Systolic 149 mmHg BP Diastolic 82 mmHg Heart Rate 68 /min Respiratory Rate 16 /min O2 % BldC Oximetry 97 % Body Temperature 97.8 F Weight 260.00 lb Height 64 inches 5'4" BMI (Body Mass Index) 44.6 kg/m2 Pain Level 4 Results Description No Information Available Procedures Date Code Description Status 03/29/2021 21678 Office/Outpatient Established Lo w MDM 20-29 Min Completed 03/29/2021 64352 Therapeutic, Prophylactic Or Beatrice gnostic Injection Subq/Im Completed Medical Devices Description No Information Available Encounters Type Date Location Provider Dx Diagnosis Office Visit 03/29/2021 11:50a Main Office REUBEN Shafer L03.21 1 Cellulitis of face Assessments Date Code Description Provider 03/29/2021 L03.211 Cellulitis of face REUBEN Paniagua Plan of Treatment 03/29/2021 - REUBEN Shafer* L03.211 Cellulitis of face* New Medication:* Cephalexin 500 mg - 1 tab by mouth q6 hours for 7 days Functional Status Description No Information Available Mental Status Description No Information Available Referrals Description No Information Available
--- OUTSIDE RECORDS SUMMARY | 2021-04-01 07:35 | CCD | Continuity of Care Document ---
Author Author Cheyenne ROMAN CO Organization Unknown Address [address] [place] [address] [place] [address] Phone [phone] Care Team Providers Care Power Barker Name Role Phone Carter Silva MD [facility] [phone] Problems Description No Information Available Social History [...] Norman,DO Symbicort 160-4.5mcg/Act Aerosol Imtiaz Norman,DO Ipratropium [place]/Albuterol Sulfate 0.5-2.5(3)mg/3ML Solution Imtiaz Norman DO Metformin [...] Available Procedures Date Code Description Status 03/29/2021 63081 Office/Outpatient Established Lo w MDM 20-29 Min Completed 03/29/2021 72963 Therapeutic, Prophylactic Or Beatrice gnostic Injection Subq/Im [...]
--- OUTSIDE RECORDS SUMMARY | 2021-04-01 07:35 | CCD | Continuity of Care Document ---
Author Author [facility] Organization [facility] Address [address] [place] [address] Care Team Providers Care Mold Maker Helper Name Role Phone UNKNOWN, UNKNOWN PCP Unavailable Allergies and Intolerances Code Code System Allergy Substance Type Reaction Severity Start Da te End Date Status 99506 RXNorm Tetracycline Drug allergy (disorder) Unknown Active 20280820 RXNorm Catapres Drug allergy (disorder) Unknown Active Medications RxNorm Medication Dose Route Instructions Start Date End Date Stat us 435 albuterol 2 puff inhalation inhaled every 6 hours as needed. (11/03/20 x90 ds) Active 243397 amlodipine 10 MG Oral Tablet 10 mg oral orally every morning (01/30/21 x90 ds) Active 304207 atorvastatin 10 MG Oral Tablet 10 mg oral orall y daily (11/11/20 x90 ds) Active 124638 chlorthalidone 25 MG Oral Tablet 25 mg oral orally every morning (01/28/21 x90 ds) Active 19771223 lisinopril 40 MG Oral Tablet 40 mg oral orally every morning (01/30/21 x90 ds) Active 524450 montelukast 10 MG Oral Tablet 10 mg oral orally every morning (12/20/20 x90 ds) Active 7646 omeprazole 20 mg oral orally every morning (11/29/20 x90 ds) Active 392806 sertraline 100 MG Oral Tablet 100 mg oral orally every morning (01/07/21 x90 ds) Active 011714 spironolactone 25 MG Oral Tablet 25 mg oral orally every morning (01/28/21 x90 ds) Active 374946 metformin hydrochloride 500 MG Oral Tablet 500 mg oral orally 2 times per day (11/19/20 x90 ds) Completed Medications At Time Of Discharge RxNorm Medication Dose Route Instructions Start Date End Date Stat us 435 albuterol 2 puff inhalation inhaled every 6 hours as needed. (11/03/20 x90 ds) Active 044176 amlodipine 10 MG Oral Tablet 10 mg oral orally every morning (01/30/21 x90 ds) Active 487491 atorvastatin 10 MG Oral Tablet 10 mg oral orall y daily (11/11/20 x90 ds) Active 396329 chlorthalidone 25 MG Oral Tablet 25 mg oral orally every morning (01/28/21 x90 ds) Active 135888 lisinopril 40 MG Oral Tablet 40 mg oral orally every morning (01/30/21 x90 ds) Active 20010625 montelukast 10 MG Oral Tablet 10 mg oral orally every morning (12/20/20 x90 ds) Active 7646 omeprazole 20 mg oral orally every morning (11/29/20 x90 ds) Active 031439 sertraline 100 MG Oral Tablet 100 mg oral orally every morning (01/07/21 x90 ds) Active 094172 spironolactone 25 MG Oral Tablet 25 mg oral orally every morning (01/28/21 x90 ds) Active Problems * No Data in the system Procedures * No data in the system Results Laboratory Results Order: TROPONIN I Specimen Source: Body Site: Legend: (G,H) = High, (GG,HH,CH,#H) = Above High Threshold, (#,L) = Low, (##,CL ,#L,LL) = Below Low Threshold, (C,CC,CA,#A,A) = Abnormal LOINC Test Result Flag Range Units Date 1TROPONIN I 0.03 0.00-0.04 ng/mL 01/31/2021 21:35 Interpretive Aicha: 1 TROPONIN INTERPRE TATION 0.00 - 0.04 ng/ml Normal 0.05 - 0.29 ng/ml Burns Zone, Uncertain for AMI Greater than 0.30 ng/ml Suggestive of AMI * Performing Lab Footnotes:* [facility] - [id number] - [address] [place] [address] PK CONDE 1 Order: B-TYPE NATRIURETIC PEPTID Specimen Source: Body Site: Legend: (G,H) = High, (GG,HH,CH,#H) = Above High Threshold, (#,L) = Low, (##,CL ,#L,LL) = Below Low Threshold, (C,CC,CA,#A,A) = Abnormal LOINC Test Result Flag Range Units Date 1B-RESEARCH INSTRUMENTATION TECHNICIAN 25 0-100 pg/mL 01/31/2021 18:35 * Performing Lab Footnotes:* [facility] - [id number] - [address] [place] [address] PK CONDE 1 Order: CBC DIFF Specimen Source: Body Site: Legend: (G,H) = High, (GG,HH,CH,#H) = Above High Threshold, (#,L) = Low, (##,CL ,#L,LL) = Below Low Threshold, (C,CC,CA,#A,A) = Abnormal LOINC Test Result Flag Range Units Date 1WBC 8.2 4.8-10.8 K/uL 01/31/2021 18:35 1RBC 4.85 4.20-5.40 M/uL 01/31/2021 18:35 1HEMOGLOBIN 11.2 L 12.0-16.0 gm/dL 01/31/2021 18:35 1HEMATOCRIT 34.2 L 36.0-48.0 % 01/31/2021 18:35 1MCV 70.6 L 80.0-100.0 fL 01/31/2021 18:35 1MCHC 32.6 30.0-36.5 % 01/31/2021 18:35 1MCH 23.0 L 27.0-34.0 pg 01/31/2021 18:35 1RDW 15.6 H 11.0-15.0 % 01/31/2021 18:35 1PLATELET 283 130-450 K/uL 01/31/2021 18:35 1MPV 9.6 6.0-12.0 fL 01/31/2021 18:35 1NE% 62 37-80 % 01/31/2021 18:35 1LY% 30 10-50 % 01/31/2021 18:35 1MO% 6 0-12 % 01/31/2021 18:35 1EO% 1 <=8 % 01/31/2021 18:35 1BA% 1 <=3 % 01/31/2021 18:35 1NE# 5.0 1.8-8.6 K/uL 01/31/2021 18:35 1LYMPH# 2.5 0.5-5.0 K/uL 01/31/2021 18:35 1MONO# 0.5 0.0-1.3 K/uL 01/31/2021 18:35 1EOS# 0.1 0.0-0.9 K/uL 01/31/2021 18:35 1BASO# 0.1 0.0-0.3 K/ul 01/31/2021 18:35 * Performing Lab Footnotes:* [facility] - [id number] - [address] [place] [address] PK CONDE 1 Order: CK Specimen Source: Body Site: Legend: (G,H) = High, (GG,HH,CH,#H) = Above High Threshold, (#,L) = Low, (##,CL ,#L,LL) = Below Low Threshold, (C,CC,CA,#A,A) = Abnormal LOINC Test Result Flag Range Units Date 1CK 100 21-215 U/L 01/31/2021 18:35 * Performing Lab Footnotes:* [facility] - [id number] - [address] [place], [place] [address] PK Jt CONDE 1 Order: COMPREHENSIVE PANEL Specimen Source: Body Site: Legend: (G,H) = High, (GG,HH,CH,#H) = Above High Threshold, (#,L) = Low, (##,CL ,#L,LL) = Below Low Threshold, (C,CC,CA,#A,A) = Abnormal LOINC Test Result Flag Range Units Date 1SODIUM 141 136-145 mmol/L 01/31/2021 18:35 1POTASSIUM 3.5 3.5-5.2 mmol/L 01/31/2021 18:35 1CHLORIDE 108 100-108 mmol/L 01/31/2021 18:35 1CO2 22 21-32 mmol/L 01/31/2021 18:35 1GLUCOSE 121 H 70-100 mg/dL 01/31/2021 18:35 1BUN 14 7-21 mg/dL 01/31/2021 18:35 1CREATININE 1.2 0.6-1.3 mg/dL 01/31/2021 18:35 Interpretive Aicha: 1Normal Kidney Function or M ild Disease - GFR >OR= 60 Chronic Kidney Disease - GFR 15-59 Renal Failure - GFR < 15 GFR not calculated on patients under 18 years of age. Calculated (estimated) GFR is based on the MDRD Study equation, which assumes a steady state for creatinine. Estimated GFR may not be appropriate for medication dosing. 1CALCIUM 9.3 8.5-10.8 mg/dL 01/31/2021 18:35 1GFR 44 01/31/2021 18:35 1T BILI 0.3 0.0-1.2 mg/dL 01/31/2021 18:35 1T PROTEIN 7.5 6.4-8.2 gm/dL 01/31/2021 18:35 1ALBUMIN 4.0 3.4-4.8 gm/dL 01/31/2021 18:35 1ALK PHOS 148 40-150 U/L 01/31/2021 18:35 1ALT (SGPT) 13 0-55 U/L 01/31/2021 18:35 1AST (SGOT) 16 5-37 U/L 01/31/2021 18:35 * Performing Lab Footnotes:* [facility] - [id number] - [address] [place] [address] PK CONDE 1 Order: MAGNESIUM Specimen Source: Body Site: Legend: (G,H) = High, (GG,HH,CH,#H) = Above High Threshold, (#,L) = Low, (##,CL ,#L,LL) = Below Low Threshold, (C,CC,CA,#A,A) = Abnormal LOINC Test Result Flag Range Units Date 1MAGNESIUM 2.1 1.7-2.6 mg/dL 01/31/2021 18:35 * Performing Lab Footnotes:* [facility] - [id number] - [address] [address] PK CONDE 1 Order: PT/INR Specimen Source: Body Site: Legend: (G,H) = High, (GG,HH,CH,#H) = Above High Threshold, (#,L) = Low, (##,CL ,#L,LL) = Below Low Threshold, (C,CC,CA,#A,A) = Abnormal LOINC Test Result Flag Range Units Date 1PROTIME 11.7 9.4-12.4 sec 01/31/2021 18:35 1INR 1.1 01/31/2021 18:35 Interpretive Aicha: 1 INR INTERPERTATIO N 2.0-3.0 THERAPEUTIC MONITORING 2.5-3.5 HEART VALVE REPLACEMENT * Performing Lab Footnotes:* [facility] - [id number] - [address] [place] [address] PK CONDE 1 Order: PTT Specimen Source: Body Site: Legend: (G,H) = High, (GG,HH,CH,#H) = Above High Threshold, (#,L) = Low, (##,CL ,#L,LL) = Below Low Threshold, (C,CC,CA,#A,A) = Abnormal LOINC Test Result Flag Range Units Date 1PTT 30.2 25.6-36.4 sec 01/31/2021 18:35 * Performing Lab Footnotes:* [facility] - [id number] - [address] [place] [address] PK CONDE 1 Order: TROPONIN I Specimen Source: Body Site: Legend: (G,H) = High, (GG,HH,CH,#H) = Above High Threshold, (#,L) = Low, (##,CL ,#L,LL) = Below Low Threshold, (C,CC,CA,#A,A) = Abnormal LOINC Test Result Flag Range Units Date 1TROPONIN I 0.04 0.00-0.04 ng/mL 01/31/2021 18:35 Interpretive Aicha: 1 TROPONIN INTERPRE TATION 0.00 - 0.04 ng/ml Normal 0.05 - 0.29 ng/ml Burns Zone, Uncertain for AMI Greater than 0.30 ng/ml Suggestive of AMI * Performing Lab Footnotes:* [facility] - [id number] - [address] [place] [address] PK CONDE 1 Radiology Results Order: CTA-CHEST (PE)* Exam Completion Date:01/31/2021 19:52 01/31/2021 8:[address] ANGIO CHEST CLINICAL INFORMATION: Chest pain, shortn ess of breath, rule out PE -- CHEST PAIN, UNSPECIFIED chest tightness, arm pa in after giving blood. COMPARISON: Chest x-ray 01/31/2021 1817 hours. PROC EDURE: CT angiographic technique was performed of the pulmonary arteries. Multi planar reconstructions and MIP reconstructions were reviewed. Automated exposure control, adjustment of the mA and/or kV according to patient size, and/or itera tive reconstruction techniques were utilized for radiation dose optimization. Am ount and type of contrast that was injected and/or discarded is recorded in the electronic medical record. FINDINGS: Neck Base: Unremarkable. Lungs: 0. 3 cm pulmonary nodule of the upper right lower lobe, series 401 image 104. 0.4 c m pulmonary nodule of the left upper lobe, series 401 image 63. Pleura: Unrem arkable. Great Vessels and Thoracic Aorta: Unremarkable. Pulmonary Arteri es: No evidence of central pulmonary embolism, however timing of imaging resulte d in suboptimal opacification of the pulmonary arteries. Heart/Pericardium: I ll-defined soft tissue attenuation in the anterior mediastinum and aorticopulmon bobby window, for example series 401 image 108. Moderate atherosclerosis of the co ronary vasculature. Lymph Nodes: No enlarged nodes by CT size criteria (great er than 1 cm). Upper Abdomen: Status post gastric bypass surgery. Cholelithia sis. Small hiatal hernia. 1.3 cm left adrenal nodule, with Hounsfield units of 1 9. Musculoskeletal/Soft Tissues: 1.1 cm ovoid soft tissue density lesion in the left breast, series 401 image 116. 1.6 cm ovoid soft tissue density lesion w ith coarse internal calcifications in the left breast, series 401 image 142. Moderate degenerative changes of the visualized spine. IMPRESSION: 1. No tasha dence for large or central pulmonary embolus, however timing of imaging resulted in suboptimal opacification of the pulmonary arteries. 2. Ill-defined soft tissue attenuation in the anterior mediastinum and aorticopulmonary window, thes e likely represent multiple small lymph nodes, however fat-containing mediastina l mass cannot be excluded. Recommend follow-up with chest MRI for further evalua tion. 3. 1.1 cm ovoid soft tissue density lesion in the left breast. Recommen d mammographic and/or sonographic follow-up. 4. 1.3 cm left adrenal nodule. R ecommend follow-up with MRI versus multiphasic CT. 5. Cholelithiasis and smal l hiatal hernia. END OF IMPRESSION [facility] submits Radio logy results to [employer] and [employer] then provides those sa me results to [facility]. All results are available to [facility] provider portal users. [facility] DICOM images a re available to the [facility] provider portal users only. [facility] DICOM images are not available to the [facility] provider gonzalez l users. There is no current [facility] cross-IO functionality allowing images to be available through the IO to IO connectivity. Electronically signed By: Gabino Rothman MD Read By: MONALISA ROTHMAN Date: 01/31/2021 21:39 Order: US-DOPPLER UPPER EXT VEIN - LEFT* Exam Completion Date:01/31/2021 18:15 01/31/2021 7:18 PM LEFT UPPER EXTREMITY VENOUS ULTRASOUND CLINICAL INFORMAT ION: Left arm pain, rule out DVT -- PAIN IN LEFT ARM COMPARISON: None. TECHNIQUE: Sonographic evaluation of the left upper extremity was performed usi ng grayscale, spectral, and color Doppler ultrasound. FINDINGS: Deep Veins : Left Internal Jugular Vein: Patent and compressible with normal waveforms. Left Brachiocephalic Vein: Visualized aspects normal. Left Subclavian Vein: N ormal. Left Axillary Vein: Normal. Left Brachial Veins: Normal. Superfici al Veins: Left Basilic Vein: Normal. Left Cephalic Vein: Normal. Evaluati on of the contralateral internal jugular and subclavian vein waveforms were perf ormed per protocol and are normal. IMPRESSION: No evidence of venous throm bosis in the left upper extremity. END OF IMPRESSION I have personally rev iewed the images and the Resident's/Fellow's interpretation and agree with or ed ited the findings. [facility] submits Radiology results [facility] then provides those same results to [facility]. All results are available to [facility] and [facility] pr [employer] portal users. [facility] DICOM images are available to the [facility] provider portal users only. [facility] DICOM images are not available to the [facility] provider portal users. There is n o current [facility] functionality allowing images to be available through [facility] to [facility] connectivity. Interpreted By: Rudolph Albright MD Electronically sig marco By: Vicente Goodson M.D. Read By: VICENTE GOODSON Date: 19:47 Order: CHEST PORTABLE-SINGLE* Exam Completion Date:01/31/2021 18:14 01/31/2021 6:20 PM CHEST X-RAY CLINICAL INFORMATION: CHEST PORTABLE -- C HEST PAIN, UNSPECIFIED COMPARISON: None. PROCEDURE: A single frontal proj ection of the chest was obtained. FINDINGS: Tubes and Catheters: None. C entral Airways: Normal. Lungs/Pleura/Pleural space: Normal. Heart and Mediasti num: Normal. Additional Findings: No acute or aggressive osseous changes noted. IMPRESSION: No acute cardiopulmonary disease. END OF IMPRESSION I magan lindy personally reviewed the images and the Resident's/Fellow's interpretation an d agree with or edited the findings. [facility] submits Radiol ogy results to [facility] and [facility] then provides those ginger e results to [facility]. All results are available to [facility] and [facility] provider portal users. [facility] DICOM images are available to the [facility] provider portal users only. [facility] DICOM images are not available to the [facility] provider portal users. There is no current [facility] cross-RHIO functionality allowing images to be a vailable through the RH[facility] to [facility] connectivity. Interpreted By: Zoila Marcos MD Electronically signed By: Gabriela Muñoz M.D., PHD Read By: GABRIELA MUÑOZ Date: 01/31/2021 19:58 Social History Code Code System Social History Observation Description D ates Observed 836543514 SNOMED CT Current Smoking Status Never smoker UNK AdministrativeGender Sex Assigned At Unknown Vital Signs Code Code System Vitals Value Date 8310-5 [facility] Body Temperature 97.8 [degF] 01/31/2021 8865-8 [facility] Pulse Rate 63 {beats}/min 01/31/2021 9279-1 [facility] Respiratory Rate 18 /min 01/31/2021 46293-9 [facility] O2% BldC Oximetry 96 % 01/31/2021 8480[facility]6 [facility] BP Systolic 150 mm[Hg] 01/31/2021 8462-4 [facility] BP Diastolic 72 mm[Hg] 01/31/2021 8302-2 [facility] Height 65 [in_i] 01/31/2021 48885-9 [facility] Weight 123.6 kg 01/31/2021 3140-1 [facility] Body surface area Derived from formula 2. 26 m2 01/31/2021 13299-9 [facility] BMI (Body Mass Index) 45.3 kg/m2 2020 Goals Section * No data in the system Health Concerns * No data in the system Encounter Diagnosis Date Code Code System Diagnosis Status M79.602 ICD10 PAIN IN LEFT ARM Active Advance Directives PT STATES NO ADVANCE DIRECTIVES Directive Type Effective Date Property Management Coordinator Notes Supporting Document Name Address Phone No Directive Type specified 01/31/2021 5:48:00 PM Not Specified Not Specified Not Specified None No Encounters Encounter Diagnosis Location Date PAIN IN LEFT ARM [facility] 01/31/2021 Family History * Family history not obtained Functional Status Code Functional Condition Code System Date Status Independent adls SNOMED CT 01/31/2021 Active Immunizations * No data in the system Medical Equipment * No data in the system Mental Status Code Cognitive Condition Code System Date Status Perrl SNOMED CT 01/31/2021 Active Oriented x [address] 01/31/2021 Active No acute distress SNOMED CT 01/31/[address] 01/31/2021 Active Mild distress SNOMED CT 01/31/2021 Active Assessment and Plan Assessments * No data in the system Plan Of Treatment * No data in the system Pending Tests * No data in the system Hospital Discharge Instructions * No data in the system Reason for Visit Reason for Visit Arm Pain LEFT
--- OUTSIDE RECORDS SUMMARY | 2021-04-01 07:35 | CCD | Continuity of Care Document ---
Author Author [facility] Organization Unknown Address [address] [address] Phone [phone] Care Team Providers Care Ore Washer Name Role Phone Imtiaz Norman DO AUTM [phone] Carter Silva MD AUTM [phone] Problems Active Problems Provider Date Esophageal reflux [...] s 1 by mouth every day 30chivo Silva M.D. 08/12/[address] 1 by mouth every day 90chivo Silva M.D. 06/02/2020 Sertraline HCL 100mg Tablets 1 by mouth every day 90Tablet Carter Silva M.D. 05/28/2019 Spironolactone 25mg Tablets 1 by mouth every day 90tabs I10 Carter Silva M.D. 01/19/2016 Ferrous Sulfate 325mg Tablets one tab PO daily 90tabs E61.1 Carter Silva M.D. 12/02/2015 Nasonex 50mcg/Act Suspension 1 spray each nostril twice a day as needed 17gm Ysabel Kim 10/14/2015 Norvasc 10mg Tablets 1 tablet, 1 time per day, for 90 days 90tabs Carter Silva M.D. Epipen 2-Saeed 0.3mg/0 .3ML Solution Auto-Inject use as directed, for 90 days Unknown Symbicort 160-4.5mcg/Act Aerosol 2 inhalations twice daily 3units Carter Silva M.D. Lisinopril 40mg Tablets 1 by mouth every day 90tabs Carter Silva M.D. Chlorthalidone 25mg Tablets take one tablet by mouth every morning 90tabs Ysabel Kim Montelukast Sodium 10mg Tablets one before bedtime daily Unknown Immunizations CPT Code Status Date Vaccine Lot # U-Flu Given 02/20/2018 Influenza,Unspecified 54524 Given 03/05/2014 Influenza Virus Vaccine 19646 Given 02/26/2013 Influenza Virus Vaccine 78053 Given 01/16/2013 Adacel- Tetanus Diphtheria P ertussis 37975 Given 03/07/2012 Influenza Virus Vaccine 95219 Given 2010 Influenza Virus Vaccine Vital Signs Date Vital Result Comment 02/09/2021 2:39pm BP Systolic 128 mmHg BP Diastolic 78 mmHg Heart Rate 88 /min Height 63 inches 5'3" Weight 272.00 lb O2 % BldC Oximetry 98 % RM Air BMI (Body Mass Index) 48.2 kg/m2 12/28/2020 12:01pm BP Systolic 152 mmHg BP Diastolic 80 mmHg BP Systolic Recheck 155 mmHg BP Diastolic Recheck 82 mmHg Heart Rate 78 /min Height 63 inches 5'3" Weight 272.00 lb BMI (Body Mass Index) 48.2 kg/m2 Results Test Acquired Date Facility Test Result H/L Range Note Laboratory test finding 12/28/2020 [facility] [address] [place] [address] [phone] Ferritin 5 NG/ML Low 8-252 Complete Blood Count 12/28/2020 [facility] Showroom Executive Director: [place] [address] [phone] WBC 6.0 x10*3/UL 4.1 - 10.9 1 [...] 2.0 - 7.8 Comprehensive Chem Profile 12/28/2020 [facility] Show[facility] Executive Director: [place] [address] [phone] Glucose 101 mg/dL High 74 - 99 [...] 60 mL/min >60 4 Lipid Profile 12/28/2020 [facility] Showroom Executive Director: [place] [address] [phone] Cholesterol 227 mg/dL High 131 - 200 Triglycerides 191 mg/dL High 30 - 150 HDL Cholesterol 53 mg/dL 35 - 60 LDL (Calculated) 136 CALC 50 - 159 Laboratory test finding 12/28/2020 [facility] Showroom Executive Director: [place] [address] [phone] Thyroid Stimulating Hormone 3.21 uIU/mL 0.3 6 - 3.74 Laboratory test finding 12/28/2020 [facility] Showroom Executive Director: [place] [address] [phone] Vitamin D 25-Hydroxy 33.8 ng/ml 24.0 - [...] LITTLE GFR LEFT ESRD GFR <15 ON SILVERER 5 This test was performed [employer] Vitamin D immunoassay kit. Values obtained with different assay methods should not be used interchangeably. Procedures Date Code Description Status 02/09/2021 40042 Office/Outpatient Established Mo d MDM 30-39 Min Completed 12/28/2020 31485 Office/Outpatient Established Mo d MDM 30-39 Min Completed 03/06/2013 62517319 Mammogram Completed 07/11/2011 66556506 Colonoscopy Completed Medical Devices Description No Information Available Encounters Type Date Location Provider Dx Diagnosis Office Visit 02/09/2021 2:40p [facility] R91.8 Other nonspecific abnormal f inding of lung field R93.89 Abnormal findings on dx imag ing of oth body structures I10 Essential (primary) hyperten abimael G47.33 Obstructive sleep apnea (laurent lt) (pediatric) D64.9 Anemia, unspecified R53.83 Other fatigue Office Visit 12/28/2020 11:30a [facility] M.[facility] D64.9 Anemia, unspecified R53.83 Other fatigue G47.33 Obstructive sleep apnea (laurent lt) (pediatric) I10 Essential (primary) hyperten abimael E55.9 Vitamin D deficiency, unspec ified J45.40 Moderate persistent asthma, uncomplicated F39 Unspecified mood [affective] disorder K21.9 Gastro-esophageal reflux dis ease without esophagitis Assessments Date Code Description Provider 02/09/2021 R91.8 Other nonspecific abnormal findi ng of lung field REUBEN Singh JR 02/09/2021 R93.89 Abnormal findings on diagnostic imaging of other specified body structures REUBEN Singh JR 02/09/2021 I10 Essential (primary) hypertension REUBEN Singh JR 02/09/2021 G47.33 Obstructive sleep apnea (adult) (pediatric) REUBEN Singh JR 02/09/2021 D64.9 Anemia, unspecified REUBEN Suarez JR 02/09/2021 R53.83 Other fatigue REUBEN Nolen JR 12/28/2020 D64.9 Anemia, unspecified Carter ballesteros M.D. 12/28/2020 R53.83 Other fatigue Carter Silva M.D. 12/28/2020 G47.33 Obstructive sleep apnea (adult) (pediatric) Carter Silva M.D. 12/28/2020 I10 Essential (primary) hypertension Carter Silva M.D. 12/28/2020 E55.9 Vitamin D deficiency, unspecifie d Carter Silva M.D. 12/28/2020 J45.40 Moderate persistent asthma, unco mplicated Carter Silva M.D. 12/28/2020 F39 Unspecified mood [affective] dis order Carter Silva M.D. 12/28/2020 K21.9 Gastro-esophageal reflux disease without esophagitis Carter Silva M.D. Plan of Treatment Future Appointment(s):* 04/28/2021 2:30 pm - [facility] 12/28/2020 - Carter Silva M.D.* D64.9 Anemia, unspecified * R53.83 Other [...] have new EGD and colonoscopy soon at [facility] for anemia (she has not had as [...] APPTS DUE TO WORK Patient Notified 01/27/2021 [facility] General Surgery [address] [facility] [address] [facility] [address] [phone]
--- OUTSIDE RECORDS SUMMARY | 2021-04-01 07:35 | CCD ---
Continuity of Care Document (CCD) Created on: 02/10/2021 Cheyenne Gloria External Reference #: [id number] : [id number] Sex: Female Author Author Cheyenne ROGERS PA Organization Unknown Address [address] [place] [address] Phone [phone] Care Team Providers [employer] Name Role Phone Carter Silva M.D. [facility] [phone] Problems Active Problems Provider Date Acute pharyngitis Shlomo Hill.Pop Onset: 09/11/2018 Cough Imtiaz Norman D.O. Onset: 09/26/2016 Mild intermittent asthma Shaun HillO. Onset: 09/27/19 17 Obstructive sleep apnea syndrome Imtiaz Norman D.O. Onset: 03/16/2016 Mild intermittent asthma Imtiaz Norman [...] Needed 54units Imtiaz vicente, D.O. 03/06/2018 Ipratropium [place]/Albuterol Sulfate 0.5-2.5(3)mg/3ML Solution 1 vial via neb four times a day as needed 360ml Imtiaz Norman D.O. 03/06/2018 Montelukast Sodium 10mg Tablets Take 1 Tablet Daily 90tabs J45.20 Imtiaz Norman D.O. 09/26/2016 CPAP +14 LCW Unknown Vitamin D (Ergocalciferol) 80668Kygq Capsules take one capsule by mouth once [...] CPT Code Status Date Vaccine Lot # [id number] Given 03/16/2016 Influenza Virus Split 3 Yrs And Above For Intramuscular Use [id number] Vital Signs Date Vital Result Comment 02/09/2021 9:08am BP Systolic 125 mmHg BP Diastolic 78 mmHg Heart Rate 82 /min O2 % BldC Oximetry 99 % Height 64.75 inches 5'4.75" Weight 271.00 lb BMI (Body Mass Index) 45.4 kg/m2 [place] Body Weight 120 lb Weight 122.926 kg BSA (Body Surface Area) 2.24 m2 01/27/2021 9:16am BP Systolic 137 mmHg BP Diastolic 83 mmHg Heart Rate 61 /min Body Temperature 97.8 F Height 64.75 inches 5'4.75" Weight 273.38 lb BMI (Body Mass Index) 45.8 kg/m2 [place] Body Weight 120 lb Weight 124.003 kg [...] L Fev6-%Pred-Pre 126 L Fev6-LLN 2.44 L Fkf9qpp-Mkke 78 % Asp5dqn-Lmi 79 % Xlu4wca-%Pred-Pre 100 % Xff0ivx-RJV 68 % Mcm2cct-Jipe 97 % Sgo9dea-Rcp 100 % Vra6ems-%Pred-Pre 103 % FEFMax-Pred 6.19 L/E/sec FEFMax-Pre 5.83 L/E/sec FEFMax-%Pred-Pre 94 L/E/sec FEFMax-LLN 4.53 L/E/sec Ngj3489-Dsza 2.34 L/E/sec Ezq8535-Igo 2.87 L/E/sec Xph1414-%Pred-Pre 122 L/E/sec Wjl3930-YTV 1.13 L/E/sec ExpTime-Pre 5.99 sec Ljs7ubo5-Plgq 81 % Wmz1bdk8-Imm 79 % Hbv4ndt1-%Pred-Pre 97 % Sar4hjg0-VQR 72 % Procedures Date Code Description Status 02/09/2021 59650 Office/Outpatient Established Lo w MDM 20-29 Min Completed 02/09/2021 54632 Spirometry Completed 01/27/2021 08112 Office/Outpatient New Low MDM 30 -44 Minutes Completed Medical Devices Description No Information Available Encounters Type Date Location Provider Dx Diagnosis Office Visit 02/09/2021 9:30a [facility] REUBEN Ordoñez J45.20 Mild intermittent asthma, uncomplicated G47.33 Obstructive sleep apnea (laurent lt) (pediatric) Office Visit 01/27/2021 9:15a [facility] Tariq celestin JR, MD K21.9 [...] 04/28/2021 8:30 am - REUBEN Ordoñez at [facility] * 03/05/2021 7:45 pm - [facility] at [facility] * 04/14/2021 11:00 am - REUBEN Matthew at [facility] * 04/01/2021 8:00 am - Tariq Davis JR, MD at [facility] 02/09/2021 - REUBEN Ordoñez* J45.20 Mild [...] Davis JR, MD EGD COLONOSCOPY Scheduled 01/28/[address] [place] [id number] [phone]
--- OUTSIDE RECORDS SUMMARY | 2021-04-01 07:37 | CCD ---
Author Author [facility] Organization [facility] Address Unknown Phone Unavailable Care Team Providers Care Senior Credit Officer Name Role Phone Alysha HODGSON, T Brian Unavailable Alysha HODGSON, T Brian Unavailable Alysha HODGSON, T Brian Unavailable Alysha HODGSON, T Brian Unavailable Alysha HODGSON, T Brian Unavailable Alysha HODGSON, T Brian Unavailable Alysha HODGSON, T Brian Unavailable Alysha HODGSON, T Brian Unavailable Alysha HODGSON, T Brian Unavailable Alysha HODGSON, T Brian Unavailable Alysha HODGSON, T Brian Unavailable Alysha HODGSON, T Brian Unavailable Alysha HODGSON, T Brian Unavailable Alysha HODGSON, T Brian Unavailable Alysha HODGSON, T Brian Unavailable Alysha MD, T Brian Unavailable Alysha MD, T Brian Unavailable Alysha MD, T Brian Unavailable Alysha MD, T Brian Unavailable Alysha MD, T Brian Unavailable Alysha MD, T Brian Unavailable Alysha MD, T Brian Unavailable Alysha MD, T Brian Unavailable Alysha MD, T Brian Unavailable Alysha MD, T Brian Unavailable Alysha HODGSON, T Brian Unavailable Alysha MD, T Brian Unavailable Alysha MD, T Brian Unavailable Alysha HODGSON, T Brian Unavailable Alysha HODGSON, T Brian Unavailable Alysha MD, T Brian Unavailable Alysha MD, T Brian Unavailable Alysha HODGSON, T Brian Unavailable Alysha HODGSON, T Brian Unavailable Alysha HODGSON, T Brian Unavailable Alysha HODGSON, T Brian Unavailable Alysha HODGSON, T Brian Unavailable Alysha HODGSON, T Brian Unavailable Alysha HODGSON, T Brian Unavailable Alysha HOGDSON, T Brian Unavailable Alysha HODGSON, T Brian Unavailable Alysha HODGSON, T Brian Unavailable Alysha HODGSON, T Brian Unavailable + Alysha HODGSON, T Brian Unavailable + Alysha HODGSON, T Brian Unavailable + Alysha HODGSON, T Brian Unavailable + Alysha HODGSON, T Brian Unavailable + Alysha HODGSON, T Brian Unavailable + Alysha HODGSON, T Brian Unavailable + Alysha HODGSON, T Brian Unavailable + Alysha HODGSON, T Brian Unavailable + Alysha HODGSON, T Brian Unavailable + Alysha HODGSON, T Brian Unavailable + Alysha HODGSON, T Brian Unavailable + Mix, Armida PA Unavailable Unavailable Mix, Armida PA Unavailable Unavailable Mix, Armida PA Unavailable Unavailable Mix, Armida PA Unavailable Unavailable Mix, Armida PA Unavailable Unavailable Mix, Armida PA Unavailable Unavailable Mix, Armida PA Unavailable Unavailable Bagatell, L Al HODGSON Unavailable Unavailable Bagatell, L Al HODGSON Unavailable Unavailable Bagatell, L Al HODGSON Unavailable Unavailable Bagatell, L Al HODGSON Unavailable Unavailable Bagatell, Campbell Melendez MD Unavailable Unavailable Bagatell, L Al HODGSON Unavailable Unavailable Bagatell, L Al HODGSON Unavailable Unavailable Bagatell, L Al HODGSON Unavailable Unavailable Bagatell, L Al HODGSON Unavailable Unavailable Bagatell, L Al HODGSON Unavailable Unavailable Bagatell, L Al HODGSON Unavailable Unavailable Bagatell, L Al HODGSON Unavailable Unavailable Bagatell, L Al Unavailable Unavailable Bagatell, L Al Unavailable Unavailable Bagatell, L Al Unavailable Unavailable Bagatell, L Al Unavailable Unavailable Bagatell, L Al Unavailable Unavailable Bagatell, L Al Unavailable Unavailable Bagatell, L Al Unavailable Unavailable Bagatell, L Al Unavailable Unavailable Bagatell, L Al HODGSON Unavailable Unavailable Bagatell, L Al Unavailable Unavailable Bagatell, L Al Unavailable Unavailable Bagatell, L Al Unavailable Unavailable Bagatell, L Al Unavailable Unavailable Bagatell, L Al Unavailable Unavailable Bagatell, L Al Unavailable Unavailable Bagatell, L Al Unavailable Unavailable Bagatell, L Al Unavailable Unavailable Bagatell, L Al Unavailable Unavailable Bagatell, L Al Unavailable Unavailable Bagatell, L Al MD Unavailable Unavailable Bagatell, L Al Unavailable Unavailable Bagatell, L Al MD Unavailable Unavailable Bagatell, L Al MD Unavailable Unavailable Bagatell, L Al MD Unavailable Unavailable Bagatell, L Al MD Unavailable Unavailable Bagatell, L Al MD Unavailable Unavailable Bagatell, L Al MD Unavailable Unavailable Bagatell, L Al MD Unavailable Unavailable AYAZ, DAVID PA Unavailable Unavailable AYAZ, DAVID PA Unavailable Unavailable AYAZ, DAVID PA Unavailable Unavailable AYAZ, DAVID PA Unavailable Unavailable AYAZ, DAVID PA Unavailable Unavailable AYAZ, DAVID PA Unavailable Unavailable AYAZ, DAVID PA Unavailable Unavailable AYAZ, DAVID PA Unavailable Unavailable AYAZ, DAVID PA Unavailable Unavailable AYAZ, DAVID PA Unavailable Unavailable AYAZ, DAVID PA Unavailable Unavailable AYAZ, DAVID PA Unavailable Unavailable Camila Silva MD Unavailable Unavailable Camila Silva MD Unavailable Unavailable Camila Silva MD Unavailable Unavailable Camila Silva MD Unavailable Unavailable Camila Silva MD Unavailable Unavailable Camila Silva MD Unavailable Unavailable Camila Silva MD Unavailable Unavailable Camila Silva MD Unavailable Unavailable Camila Silva MD Unavailable Unavailable Camila Silva MD Unavailable Unavailable Cmaila Silva MD Unavailable Unavailable aCmila Silva MD Unavailable Unavailable Camila Silva MD Unavailable Unavailable Camila Silva MD Unavailable Unavailable Camila Silva MD Unavailable Unavailable Camila Silva MD Unavailable Unavailable Camila Silva MD Unavailable Unavailable Camila Silva MD Unavailable Unavailable Camila Silva MD Unavailable Unavailable Camila Silva MD Unavailable Unavailable Camila Silva MD Unavailable Unavailable Camila Silva MD Unavailable Unavailable Camila Silva MD Unavailable Unavailable Camila Silva MD Unavailable Unavailable Camila Silva MD Unavailable Unavailable Camila Silva MD Unavailable Unavailable Camila Silva MD Unavailable Unavailable Camila Silva MD Unavailable Unavailable Camila Silva MD Unavailable Unavailable White F Carter HODGSON Unavailable Unavailable White F Carter HODGSON Unavailable Unavailable White, F Carter Unavailable Unavailable White F Carter Unavailable Unavailable White F Carter HODGSON Unavailable Unavailable White F Carter HODGSON Unavailable Unavailable White F Carter HODGSON Unavailable Unavailable White F Carter HODGSON Unavailable Unavailable White F Carter HODGSNO Unavailable Unavailable White F Carter HODGSON Unavailable Unavailable White F Carter HODGSON Unavailable Unavailable White F Carter HODGSON Unavailable Unavailable White F Carter HODGSON Unavailable Unavailable White F Carter HODGSON Unavailable Unavailable White F Carter HODGSON Unavailable Unavailable White F Carter HODGSON Unavailable Unavailable White F Carter HODGSON Unavailable Unavailable White F Carter HODGSON Unavailable Unavailable White, F Carter HODGSON Unavailable Unavailable White F Carter HODGSON Unavailable Unavailable White F Carter HODGSON Unavailable Unavailable White F Carter HODGSON Unavailable Unavailable White F Carter HODGSON Unavailable Unavailable White F Carter HODGSON Unavailable Unavailable White F Carter HODGSON Unavailable Unavailable White F Carter HOGDSON Unavailable Unavailable Shira F Carter HODGSON Unavailable Unavailable Shira F Carter HODGSON Unavailable Unavailable White F Carter HODGSON Unavailable Unavailable White F Carter HODGSON Unavailable Unavailable White F Carter HODGSON Unavailable Unavailable White F Carter HODGSON Unavailable Unavailable White F Carter HODGSON Unavailable Unavailable White F Carter HODGSON Unavailable Unavailable Shira F Carter HODGSON Unavailable Unavailable Shira F Carter HODGSON Unavailable Unavailable White F Carter HODGSON Unavailable Unavailable White F Carter HODGSON Unavailable Unavailable White F Carter HODGSON Unavailable Unavailable White F Carter HODGSON Unavailable Unavailable White F Carter HODGSON Unavailable Unavailable Shira F Carter HODGSON Unavailable Unavailable Shira F Carter HODGSON Unavailable Unavailable Shira F Carter HODGSON Unavailable Unavailable Shira F Carter HODGSON Unavailable Unavailable Shira F Carter HODGSON Unavailable Unavailable White F Carter HODGSON Unavailable Unavailable White F Carter HODGSON Unavailable Unavailable RGOERS, M MARCIA PA Unavailable Unavailable ROGERS, M MARCIA PA Unavailable Unavailable ROGERS, M MARCIA PA Unavailable Unavailable ROGERS, M MARCIA PA Unavailable Unavailable ROGERS, M MARCIA PA Unavailable Unavailable ROGERS, M MARCIA PA Unavailable Unavailable ROGERS, M MARCIA PA Unavailable Unavailable ROGERS, M MARCIA PA Unavailable Unavailable ROGERS, M MARCIA PA Unavailable Unavailable ROGERS, M MARCIA PA Unavailable Unavailable ROGERS, M MARCIA PA Unavailable Unavailable ROGERS, M MARCIA PA Unavailable Unavailable ROGERS, M MARCIA PA Unavailable Unavailable ROGERS, M MARCIA PA Unavailable Unavailable ROGERS, M MARCIA PA Unavailable Unavailable ROGERS, M MARCIA PA Unavailable Unavailable ROGERS, M MARCIA PA Unavailable Unavailable ROGERS, M MARCIA PA Unavailable Unavailable ROGERS, M MARCIA PA Unavailable Unavailable ROGERS, M MARCIA PA Unavailable Unavailable ROGERS, M MARCIA PA Unavailable Unavailable ROGERS, M MARCIA PA Unavailable Unavailable ROGERS, M MARCIA PA Unavailable Unavailable ROGERS, M MARCIA PA Unavailable Unavailable ROGERS, M MARCIA PA Unavailable Unavailable ROGERS, M MARCIA PA Unavailable Unavailable ROGERS, M MARCIA PA Unavailable Unavailable ROGERS, M MARCIA PA Unavailable Unavailable ROGERS, M MARCIA PA Unavailable Unavailable ROGERS, M MARCIA PA Unavailable Unavailable ROGERS, M MARCIA PA Unavailable Unavailable ROGERS, M MARCIA PA Unavailable Unavailable ROGERS, M MARCIA PA Unavailable Unavailable ROGERS, M MARCIA PA Unavailable Unavailable ROGERS, M MARCIA PA Unavailable Unavailable Maring, Johnathan PA Unavailable Unavailable Maring, Johnathan PA Unavailable Unavailable Maring, Johnathan PA Unavailable Unavailable Maring, Johnathan PA Unavailable Unavailable Maring, Johnathan PA Unavailable Unavailable Maring, Johnathan PA Unavailable Unavailable Maring, Johnathan PA Unavailable Unavailable Maring, Johnathan PA Unavailable Unavailable Maring, Johnathan PA Unavailable Unavailable Maring, Johnathan PA Unavailable Unavailable Maring, Johnathan PA Unavailable Unavailable Maring, Johnathan PA Unavailable Unavailable Maring, Johnathan PA Unavailable Unavailable Maring, Johnathan PA Unavailable Unavailable Maring, Johnathan PA Unavailable Unavailable Maring, Johnathan PA Unavailable Unavailable Camila Silva MD Unavailable Unavailable Camila Silva MD Unavailable Unavailable Camila Silva MD Unavailable Unavailable Camila Silva MD Unavailable Unavailable Camila Silva MD Unavailable Unavailable Camila Silva MD Unavailable Unavailable Camila Silva MD Unavailable Unavailable Camila Silva MD Unavailable Unavailable Camila Silva MD Unavailable Unavailable Camila Silva MD Unavailable Unavailable Camila Silva MD Unavailable Unavailable Camila Silva MD Unavailable Unavailable Camila Silva MD Unavailable Unavailable Camila Silva MD Unavailable Unavailable Camlia Silva MD Unavailable Unavailable Camila Silva MD Unavailable Unavailable Camila Silva MD Unavailable Unavailable Camila Silva MD Unavailable Unavailable Camila Silva MD Unavailable Unavailable Camila Silva MD Unavailable Unavailable Camila Silva MD Unavailable Unavailable Camila Silva MD Unavailable Unavailable Camila Silva MD Unavailable Unavailable Camila Silva MD Unavailable Unavailable White F Carter Unavailable Unavailable White F Carter Unavailable Unavailable White F Carter Unavailable Unavailable White F Carter Unavailable Unavailable White F Carter Unavailable Unavailable White F Carter Unavailable Unavailable White F Carter HODGSON Unavailable Unavailable White F Carter Unavailable Unavailable White F Carter Unavailable Unavailable White F Carter Unavailable Unavailable White F Carter Unavailable Unavailable White F Carter HODGSON Unavailable Unavailable White F Carter Unavailable Unavailable White F Carter Unavailable Unavailable White F Carter HODGSON Unavailable Unavailable White F Carter Unavailable Unavailable White F Carter Unavailable Unavailable White F Carter Unavailable Unavailable White F Carter Unavailable Unavailable White F Carter HODGSON Unavailable Unavailable White F Carter Unavailable Unavailable White F Carter HODGSON Unavailable Unavailable White F Carter HODGSON Unavailable Unavailable White F Carter HODGSON Unavailable Unavailable White F Carter HODGSON Unavailable Unavailable White F Carter HODGSON Unavailable Unavailable Shira F Carter HODGSON Unavailable Unavailable Shira F Carter HODGSON Unavailable Unavailable Shira F Carter HODGSON Unavailable Unavailable Shira F Carter HODGSON Unavailable Unavailable White F Carter HODGSON Unavailable Unavailable Shira F Carter HODGSON Unavailable Unavailable White F Carter HODGSON Unavailable Unavailable Shira F Carter HODGSON Unavailable Unavailable Shira F Carter HODGSON Unavailable Unavailable Shira F Carter HODGSON Unavailable Unavailable Shira F Carter HODGSON Unavailable Unavailable Shira F Carter HODGSON Unavailable Unavailable Shira F Carter HODGSON Unavailable Unavailable Shira F Carter HODGSON Unavailable Unavailable Shira F Carter HODGSON Unavailable Unavailable Shira F Carter HODGSON Unavailable Unavailable Shira F Carter HODGSON Unavailable Unavailable Shira F Carter HODGSON Unavailable Unavailable Shira F Carter HODGSON Unavailable Unavailable Shira F Carter HODGSON Unavailable Unavailable Shira F Carter HODGSON Unavailable Unavailable Shira F Carter HODGSON Unavailable Unavailable Shira F Carter HODGSON Unavailable Unavailable Shira F Carter HODGSON Unavailable Unavailable Shira F Carter HODGSON Unavailable Unavailable Shira F Carter HODGSON Unavailable Unavailable Shira F Carter HODGSON Unavailable Unavailable Zekri, A Luna Unavailable Unavailable Zekri, A Luna Unavailable Unavailable Zekri, A Luna Unavailable Unavailable Zekri, A Luna Unavailable Unavailable Zekri, A Luna Unavailable Unavailable Zekri, A Luna Unavailable Unavailable Zekri, A Luna Unavailable Unavailable Zekri, A Luna Unavailable Unavailable Zekri, A Luna Unavailable Unavailable Zekri, A Luna Unavailable Unavailable Zekri, A Luna Unavailable Unavailable Zekri, A Luna Unavailable Unavailable Zekri, A Luna Unavailable Unavailable Zekri, A Luna Unavailable Unavailable Zekri, A Luna Unavailable Unavailable Zekri, A Luna Unavailable Unavailable Zekri, A Luna Unavailable Unavailable Zekri, A Luna Unavailable Unavailable Zekri, A Luna Unavailable Unavailable Zekri, A Luna Unavailable Unavailable Zekri, A Luna Unavailable Unavailable Zekri, A Luna Unavailable Unavailable Zekri, A Luna Unavailable Unavailable Zekri, A Luna Unavailable Unavailable Zekri, A Luna Unavailable Unavailable Zekri, A Luna Unavailable Unavailable Zekri, A Luna Unavailable Unavailable Zekri, A Luna Unavailable Unavailable Zekri, A Luna Unavailable Unavailable Lisa Caballero Unavailable Unavailable Lisa Caballero Unavailable Unavailable Lisa Caballero Unavailable Unavailable Lisa Davis JR, MD Unavailable Unavailable Lisa Davis JR, MD Unavailable Unavailable Lisa Davis JR, MD Unavailable Unavailable Lisa Davis JR, MD Unavailable Unavailable Lisa Davis JR, MD Unavailable Unavailable Lisa Davis JR, MD Unavailable Unavailable Lias Davis JR, MD Unavailable Unavailable Lisa Davis JR, MD Unavailable Unavailable Lisa Davis JR, MD Unavailable Unavailable Lisa Davis JR, MD Unavailable Unavailable Lisa Davis JR, MD Unavailable Unavailable Lisa Davis JR, MD Unavailable Unavailable Lisa Davis JR, MD Unavailable Unavailable Lisa Davis JR, MD Unavailable Unavailable Lisa Davis JR, MD Unavailable Unavailable Lisa Davis JR, MD Unavailable Unavailable Lisa Davis JR, MD Unavailable Unavailable Lisa Davis JR, MD Unavailable Unavailable Lisa Davis JR, MD Unavailable Unavailable Lisa Davis JR, MD Unavailable Unavailable Lisa Davis JR, MD Unavailable Unavailable Lisa Davis JR, MD Unavailable Unavailable Lisa Davis JR, MD Unavailable Unavailable Lisa Davis JR, MD Unavailable Unavailable Lisa Davis JR, MD Unavailable Unavailable Lisa Davis JR, MD Unavailable Unavailable Lisa Davis JR, MD Unavailable Unavailable Lisa Davis JR, MD Unavailable Unavailable Lisa Davis JR, MD Unavailable Unavailable Lisa Davis JR, MD Unavailable Unavailable RyanLisa harrison JR, MD Unavailable Unavailable RyanLisa harrison JR, MD Unavailable Unavailable Ryan JR, J Tariq HODGSON Unavailable Unavailable Ryan JR, J Tariq HODGSON Unavailable Unavailable Ryan JR, J Tariq HODGSON Unavailable Unavailable Ryan JR, J Tariq HODGSON Unavailable Unavailable Ryan JR, J Tariq HODGSON Unavailable Unavailable Ryan JR, J Tariqez HODGSON Unavailable Unavailable Ryan , J Tariq HODGSON Unavailable Unavailable Ryan JR, J Tariq HODGSON Unavailable Unavailable Ryan JR, J Tariq HODGSON Unavailable Unavailable Ryan JR, J Tariq HODGSON Unavailable Unavailable Ryan , J Tariq HODGSON Unavailable Unavailable Ryan JR, J Tariq HODGSON Unavailable Unavailable Ryan JR, J Tariq HODGSON Unavailable Unavailable Ryan JR, J Tariq HODGSON Unavailable Unavailable Ryan JR, J Tariq HODGSON Unavailable Unavailable Ryan JR, J Tariq HODGSON Unavailable Unavailable Ryan WU J Tariq HODGSON Unavailable Unavailable RyanLisa harrison JR, MD Unavailable Unavailable Ryan WU J Tariq HODGSON Unavailable Unavailable Ryan WU J Tariq HODGSON Unavailable Unavailable Lisa Davis JR, MD Unavailable Unavailable Lisa Davis JR, MD Unavailable Unavailable Shlomo Osorio MD Unavailable Unavailable Shlomo Osorio MD Unavailable Unavailable Shlomo Osorio MD Unavailable Unavailable Shlomo Osorio MD Unavailable Unavailable Shlomo Osorio MD Unavailable Unavailable Shlomo Osorio MD Unavailable Unavailable Latosha, Campbell Mednez MD Unavailable Unavailable Latosha, Campbell Mendez MD Unavailable Unavailable Latosha, Campbell Mendez MD Unavailable Unavailable Latosha, Campbell Mendez MD Unavailable Unavailable Latosha, Campbell Mendez MD Unavailable Unavailable Latosha, Campbell Mendez MD Unavailable Unavailable Latosha, Campbell Mendez MD Unavailable Unavailable Latosha, Campbell Mendez MD Unavailable Unavailable Latosha, Campbell Mendez MD Unavailable Unavailable Latosha, Campbell Mendez MD Unavailable Unavailable Latosha, Campbell Mendez MD Unavailable Unavailable Latosha, Campbell Mendez MD Unavailable Unavailable Latosha, Campbell Mendez MD Unavailable Unavailable Latosha, Campbell Mendez MD Unavailable Unavailable Latosha, Campbell Mendez MD Unavailable Unavailable MONALISA THOMAS Unavailable Unavailable RING, K PRAVEEN PA Unavailable Unavailable RING, K PRAVEEN PA Unavailable Unavailable RING, K PRAVEEN PA Unavailable Unavailable RING, K PRAVEEN PA Unavailable Unavailable RING, K PRAVEEN PA Unavailable Unavailable RING, K PRAVEEN PA Unavailable Unavailable RING, K PRAVEEN PA Unavailable Unavailable RING, K PRAVEEN PA Unavailable Unavailable RING, K PRAVEEN PA Unavailable Unavailable RING, K PRAVEEN PA Unavailable Unavailable RING, K PRAVEEN PA Unavailable Unavailable RING, K PRAVEEN PA Unavailable Unavailable RING, K PRAVEEN PA Unavailable Unavailable RING, K PRAVEEN PA Unavailable Unavailable RING, K PRAVEEN PA Unavailable Unavailable RING, K PRAVEEN PA Unavailable Unavailable RING, K PRAVEEN PA Unavailable Unavailable RING, K PRAVEEN PA Unavailable Unavailable RING, K PRAVEEN PA Unavailable Unavailable RING, K PRAVEEN PA Unavailable Unavailable RING, K PRAVEEN PA Unavailable Unavailable MIRELA STAFFORD MD Unavailable Unavailable MIRELA STAFFORD MD Unavailable Unavailable MIRELA STAFFORD MD Unavailable Unavailable MIRELA STAFFORD MD Unavailable Unavailable MIRELA STAFFORD MD Unavailable Unavailable Lisa LOMAS MD Unavailable Unavailable Lisa LOMAS MD Unavailable Unavailable Lisa LOMAS MD Unavailable Unavailable Lisa LOMAS MD Unavailable Unavailable Lisa LOMAS MD Unavailable Unavailable Lisa LOMAS MD Unavailable Unavailable Lisa LOMAS MD Unavailable Unavailable Lisa LOMAS MD Unavailable Unavailable Lisa LOMAS MD Unavailable Unavailable Lisa LOMAS MD Unavailable Unavailable Lisa LOMAS MD Unavailable Unavailable Lisa LOMAS MD Unavailable Unavailable Lisa LOMAS MD Unavailable Unavailable Lisa LOMAS MD Unavailable Unavailable Lisa LOMAS MD Unavailable Unavailable Lisa LOMAS MD Unavailable Unavailable Lisa LOMAS MD Unavailable Unavailable Lisa LOMAS MD Unavailable Unavailable Lisa LOMAS MD Unavailable Unavailable Lisa LOMAS MD Unavailable Unavailable Lisa LOMAS MD Unavailable Unavailable Lisa LOMAS MD Unavailable Unavailable Lisa LOMAS MD Unavailable Unavailable Lisa LOMAS MD Unavailable Unavailable Lisa LOMAS MD Unavailable Unavailable Lisa LOMAS MD Unavailable Unavailable Lisa LOMAS MD Unavailable Unavailable Lisa LOMAS MD Unavailable Unavailable Lisa LOMAS MD Unavailable Unavailable Lisa LOMAS MD Unavailable Unavailable Lisa LOMAS MD Unavailable Unavailable Lisa LOMAS MD Unavailable Unavailable Lisa LOMAS MD Unavailable Unavailable Lisa LOMAS MD Unavailable Unavailable Lisa LOMAS MD Unavailable Unavailable Lisa LOMAS MD Unavailable Unavailable Lisa LOMAS MD Unavailable Unavailable ABEBELisa MD Unavailable Unavailable ABEBE, Lisa KELLER MD Unavailable Unavailable ABEBE, Lisa KELLER MD Unavailable Unavailable ABEBE, Lisa KELLER MD Unavailable Unavailable ABEBE, Lisa KELLER MD Unavailable Unavailable ABEBE, Lisa KELLER MD Unavailable Unavailable ABEBE, Lisa KELLER MD Unavailable Unavailable ABEBE, Lisa KELLER MD Unavailable Unavailable ABEBE, Lisa KELLER MD Unavailable Unavailable ABEBE, Lisa KELLER MD Unavailable Unavailable ABEBE, Lisa KELLER MD Unavailable Unavailable ABEBE, Lisa KELLER MD Unavailable Unavailable ABEBE, Lisa KELLER MD Unavailable Unavailable ABEBE, Lisa KELLER MD Unavailable Unavailable ABEBE, Lisa KELLER MD Unavailable Unavailable ABEBE, Lisa KELLER MD Unavailable Unavailable ABEBE, Lisa KELLER MD Unavailable Unavailable ABEBE, Lisa KELLER MD Unavailable Unavailable ABEBE, Lisa KELLER MD Unavailable Unavailable ABEBE, Lisa KELLER MD Unavailable Unavailable ABEBE, Lisa KELLER MD Unavailable Unavailable ABEBE, Lisa KELLER MD Unavailable Unavailable ABEBE, Lisa KELLER MD Unavailable Unavailable ABEBE, Lisa KELLER MD Unavailable Unavailable ABEBE, Lisa KELLER MD Unavailable Unavailable ABEBE, Lisa KELLER MD Unavailable Unavailable ABEBE, Lisa KELLER MD Unavailable Unavailable ABEBELisa MD Unavailable Unavailable ABEBELisa MD Unavailable Unavailable ABEBELisa MD Unavailable Unavailable ABEBELisa MD Unavailable Unavailable ABEBE, Lisa KELLER MD Unavailable Unavailable ABEBE, Lisa KELLER MD Unavailable Unavailable ABEBE, Lisa KELLER MD Unavailable Unavailable ABEBELisa MD Unavailable Unavailable ABEBELisa MD Unavailable Unavailable ABEBELisa MD Unavailable Unavailable ABEBELisa MD Unavailable Unavailable ABEBELisa MD Unavailable Unavailable ABEBELisa MD Unavailable Unavailable ABEBELisa MD Unavailable Unavailable ABEBELisa MD Unavailable Unavailable ABEBELisa MD Unavailable Unavailable ABEBELisa MD Unavailable Unavailable ABEBELisa MD Unavailable Unavailable ABEBELisa MD Unavailable Unavailable Tech, Nuclear Bf Unavailable Rk LUIS MD Unavailable Unavailable Rk LUIS MD Unavailable Unavailable Rk LUIS MD Unavailable Unavailable Rk LUIS MD Unavailable Unavailable Rk LUIS MD Unavailable Unavailable Rk LUIS MD Unavailable Unavailable Rk LUIS MD Unavailable Unavailable Rk LUIS MD Unavailable Unavailable LINDSEY ROBERSON MD Unavailable Unavailable LINDSEY ROBERSON MD Unavailable Unavailable LINDSEY ROBERSON MD Unavailable Unavailable LINDSEY ROBESRON MD Unavailable Unavailable LINDSEY ROBERSON MD Unavailable Unavailable LINDSEY ROBERSON MD Unavailable Unavailable LINDSEY ROBERSON MD Unavailable Unavailable LINDSEY ROBERSON MD Unavailable Unavailable LINDSEY ROBERSON MD Unavailable Unavailable LINDSEY ROBERSON MD Unavailable Unavailable LINDSEY ROBERSON MD Unavailable Unavailable LINDSEY ROBERSON MD Unavailable Unavailable LINDSEY ROBERSON MD Unavailable Unavailable LINDSEY ROBERSON MD Unavailable Unavailable LINDSEY ROBERSON MD Unavailable Unavailable PICKERAL JR, J LINDSEY PA-C Unavailable Unavailable PICKERAL JR, J LINDSEY PA-C Unavailable Unavailable PICKERAL JR, J LINDSEY PA-C Unavailable Unavailable PICKERAL JR, J LINDSEY PA-C Unavailable Unavailable PICKERAL JR, J LINDSEY PA-C Unavailable Unavailable PICKERAL JR, J LINDSEY PA-C Unavailable Unavailable PICKERAL JR, J LINDSEY PA-C Unavailable Unavailable PICKERAL JR, J LINDSEY PA-C Unavailable Unavailable PICKERAL JR, J LINDSEY PA-C Unavailable Unavailable PICKERAL JR, J LINDSEY PA-C Unavailable Unavailable PICKERAL JR, J LINDSEY PA-C Unavailable Unavailable PICKERAL JR, J LINDSEY PA-C Unavailable Unavailable PICKERAL JR, J LINDSEY PA-C Unavailable Unavailable PICKERAL JR, J LINDSEY PA-C Unavailable Unavailable PICKERAL JR, J LINDSEY PA-C Unavailable Unavailable PICKERAL JR, J LINDSEY PA-C Unavailable Unavailable PICKERAL JR, J LINDSEY PA-C Unavailable Unavailable PICKERAL JR, J LINDSEY PA-C Unavailable Unavailable PICKERAL JR, J LINDSEY PA-C Unavailable Unavailable PICKERAL JR, J LINDSEY PA-C Unavailable Unavailable PICKERAL JR, J LINDSEY PA-C Unavailable Unavailable PICKERAL JR, J LINDSEY PA-C Unavailable Unavailable PICKERAL JR, J LINDSEY PA-C Unavailable Unavailable PICKERAL JR, J LINDSEY PA-C Unavailable Unavailable PICKERAL JR, J LINDSEY PA-C Unavailable Unavailable PICKERAL JR, J LINDSEY PA-C Unavailable Unavailable PICKERAL JR, J LINDSEY PA-C Unavailable Unavailable Veto FORTE Unavailable Unavailable PHYSICIAN, PHYSICIAN ER Unavailable Unavailable Campbell Bagley MD Unavailable Unavailable Campbell Bagley MD Unavailable Unavailable Kevyn, L Sanam MD Unavailable Unavailable Kevyn, L Sanam MD Unavailable Unavailable Kevyn, L Sanam MD Unavailable Unavailable Kevyn, L Sanam MD Unavailable Unavailable Kevyn, L Sanam MD Unavailable Unavailable Kevyn, L Sanam MD Unavailable Unavailable Kevyn, L Sanam MD Unavailable Unavailable Kevyn, L Sanam MD Unavailable Unavailable Kevyn, L Sanam MD Unavailable Unavailable Kevyn, L Sanam MD Unavailable Unavailable Kevyn, L Sanam MD Unavailable Unavailable Kevyn, L Sanam MD Unavailable Unavailable Kevyn, L Sanam MD Unavailable Unavailable Kevyn, L Sanam MD Unavailable Unavailable Kevyn, L Sanam MD Unavailable Unavailable Kevyn, L Sanam MD Unavailable Unavailable Kevyn, L Sanam MD Unavailable Unavailable PHYSICIAN, ER Unavailable Unavailable Re-disclosure Warning The records that you are about to access may contain information from federally-assisted alcohol or drug abuse programs. If such information is present, then the following federally mandated warning applies: This information has been disclosed to you from records protected by federal confidentiality rules (42 CFR part 2). The federal rules prohibit you from making any further disclosure of this information unless further disclosure is expressly permitted by the written consent of the person to whom it pertains or as otherwise permitted by 42 CFR part 2. A general authorization for the release of medical or other information is NOT sufficient for this purpose. The Federal rules restrict any use of the information to criminally investigate or prosecute any alcohol or drug abuse patient.The records that you are about to access may contain highly sensitive health information, the redisclosure of which is protected by Article 27-F of the [facility] Public Health law. If you continue you may have access to information: Regarding HIV / AIDS; Provided by facilities licensed or operated by the [facility] Office of Mental Health; or Provided by the [facility] Office for People With Developmental Disabilities. If such information is present, then the following [facility] mandated warning applies: This information has been disclosed to you from confidential records which are protected by state law. State law prohibits you from making any further disclosure of this information without the specific written consent of the person to whom it pertains, or as otherwise permitted by law. Any unauthorized further disclosure in violation of state law may result in a fine or half-way sentence or both. A general authorization for the release of medical or other information is NOT sufficient authorization for further disc losure. 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 Observation Descr iption Data Source(s) No Directive Type specified PT STATES NO ADVANCE DIRECTIVES completed No Directive Type specified [facility] Allergies and Adverse Reactions Type Description Substance Reaction Status Data Source(s ) Drug allergy Catapres Catapres [facility] Drug allergy Tetracycline [facility] Family History Family Member Name Family Member Gender Family Member Status Date o f Status Description Data Source(s) Unknown Unknown Problem [facility] ([facility]) Unknown Male Problem [facility] ([facility]) Unknown Unknown Problem [facility] ([facility] Unknown Female Problem [facility] Unknown Female Problem [facility] Encounters Encounter Providers Location Date Indications Data Source(s ) Outpatient Attender: Brian Forte MDA ttender: BRIAN FORTEReferrer: Luna Simmons 04/12/2021 12:00:00 AM EST [facility] Outpatient Attender: PRAVEEN Hines 03/29/2021 10:50:00 AM EST [facility] ([facility] Outpatient Attender: KRISHNA LOMAS MD BF-BF 03/03/2021 12:00:00 AM EDT [facility] Outpatient Attender: LINDSEY Ahmadi 0 02/09/2021 02:40:00 PM EDT [facility] ([facility] ) Outpatient Attender: MARCIA Kamara/Agustina/Miquel/Rein dl 02/09/2021 09:30:00 AM EDT [facility] ([facility] Outpatient Attender: Lindsey Downs MDAttender: Armida Archer PAAttender: SHELLEY LUIS MDAdmitter: Lindsey Downs MDConsultant: MONALISA THOMAS OUTPATIENT-EMERGENCY 01/31/2021 05:31:00 PM EDT - 02/01/2021 01:10:00 AM EDT [facility] Patient discharged. Outpatient Attender: Tariq Kamara/Agustina/Miquel/Rein dl 01/27/2021 09:15:00 AM EDT [facility] Outpatient Attender: Carter Ahmadi 12/28 11:30:00 AM EDT [facility] ([facility] ) Outpatient Attender: Johnathan ALEXIS 09/22/19 10:29:04 AM EDT - 09/21/2020 11:24:52 AM EDT [facility] ([facility] ) Outpatient 09/21/2020 09:45:58 AM EDT [facility] ([facility]) Outpatient Attender: Carter Ahmadi 08/03 01:00:00 PM EDT [facility] ([facility] ) Outpatient Attender: MARCIA Kamara/Agustina/Miquel/Geoff gongora 08/03/2020 09:00:00 AM EDT [facility] Outpatient Attender: Bf TechReferrer: KRISHNA LOMAS MD BF-BF. [facility] 06/23/2020 12:00:00 AM [facility] Outpatient Referrer: Sanam Bagley MD 06/15/2020 12:00:00 AM [facility] Outpatient Referrer: KRISHNA LOMAS MD 06/12/2020 10:16:08 AM EST [facility] Outpatient Referrer: KRISHNA LOAMS MD 06/12/2020 10:14:07 AM EST [facility] Outpatient Attender: Carter Ahmadi 06/02 08:30:00 AM EST [facility] ([facility] ) Outpatient Attender: Luna Cohender : Andrew Osorio MDAttender: LINDSEY ROBERSON MDAttender: MIRELA STAFFORD MDAdmitter: Andrew Osorio MDReferrer: Andrew Osorio MDConsultant: Andrew Osorio MD [id number] 12:00:00 AM EST - 05/31/2020 12:00:00 AM EST Shortness of breath [facility] Shortness of breath Patient discharged. Outpatient Referrer: Al Mcqueen MD 05/29/2020 1 2:00:00 AM EST Contact with and (suspected) exposure to other viral communicable diseases [facility] Contact with and (suspected) exposure to other viral communicable diseases Outpatient Referrer: Jackie Caballero 05/29/2020 12:00:00 AM E [facility] Outpatient Referrer: Jackie Caballero 05/29/2020 12:00:00 AM E [facility] Emergency Attender: ER PHYSICIAN 05/27/2020 10:24:48 AM E [facility] Emergency Attender: DAVID FUNKttender: ER PHYSICIAN 05/27/2020 09:25:00 AM EST - 05/27/2020 03:55:00 PM EST ASTHMA ATTACK [facility] ASTHMA ATTACK Patient discharged. Emergency Attender: ER PHYSICIAN 05/27/2020 09:25:[address] [facility] Outpatient Referrer: Sanam Bagley MD 05/25/2020 12:00:00 AM [facility] Outpatient 05/25/2020 12:00:00 AM [facility] Outpatient Attender: Carter Silva [facility] 05/20 02:00:00 PM EST [facility] ([facility] ) Outpatient Referrer: Carter Silva MD [id number] 02/14/2020 12:00:00 AM [facility] Functional Status Immunizations Vaccine Date Status Description Data Source(s) COVID-19 VACCINE Pfizer 02/13/2021 12:00:00 AM EDT completed [facility] Vaccine Series Complete: YESThis Data wa s Submitted to [facility] Via [employer]. COVID-19 VACC, MRNA(PFIZER)/PF 02/13/2021 12:00:00 AM EDT completed [facility] COVID-19 VACCINE Pfizer 06/15/2020 12:00:00 AM EST completed [facility] Vaccine Series Complete: YESThis Data wa s Submitted to [facility] Via [employer]. COVID-19 VACCINE Pfizer 05/25/2020 12:00:00 AM EST completed [facility] Vaccine Series Complete: NOThis Data was Submitted to [facility] Via [employer]. 208 05/25/2020 12:00:00 AM EST completed <td I D="[id number]">Pfizer SARS-CoV-2 Vaccination</td><td>05/25/2020</td><td></td> [facility] Medications Medication Brand Name Start Date Product Form Dose Route Admi nistrative Instructions Pharmacy Instructions Status Indications Reaction Description Data Source(s) Rocephin/Ceftriaxone Sodium Injection Per 250 MG 03/29 12:00:00 AM EST completed [facility] ([facility]) Medication administered onsite Cephalexin 500 MG Oral Tablet Cephalexin 03/29/2021 12:00:00 AM EST ORAL active [facility] ([facility]) SUPREP BOWEL PREP KIT 17.5-3.13-1.6 gram SODIUM, POTASSIUM,M AG SULFATES 03/18/2021 12:00:00 AM EDT [facility]n 354 TAKE PER DOCTOR'S BOWEL PREP INSTRUCTIONS TAKE PER DOCTOR'S BOWEL PREP INSTRUCTIONS SOLD: 03/22/2021 Shayna Roth Omeprazole 20 MG Delayed Release Oral Ca psule omeprazole (PriLOSEC) 20 MG capsule omeprazole (PriLOSEC) 20 MG capsule 02/27/2021 12:00:00 AM EDT active [facility] atorvastatin 10 MG Oral Tablet atorvastatin (LIPITOR) 10 MG tablet atorvastatin (LIPITOR) 10 MG tablet 02/10/2021 12:00:00 AM EDT active TAKE 1 TABLET DAILY [facility] 60 mcg (15 mcg x 4)/0.5 mL 02/03/2021 12:00:00 AM EDT [facility] 0 USE DIRECTED USE DIRECTED SOLD: 02/03/2021 Evangelista Roth atorvastatin 20 MG Oral Tablet Atorvastatin Calcium 12/28/2020 1 2:00:00 AM EDT ORAL active [facility] ( [facility]) 205.5 mcg (0.15 %) 09/21/2020 12:00:00 AM EDT spray,non-aero [place] 30 SPRAY 2 SPRAYS IN EACH NOSTRIL ONCE PER DAY FOR 5 DAYS SPRAY 2 SPRAYS IN EACH NOSTRIL ONCE PER DAY FOR 5 DAYS SOLD: 09/21/2020 Shayna Roth NITROFURANTOIN, MACROCRYSTALS 25 MG / Ni trofurantoin, Monohydrate 75 MG Oral Capsule 100 mg NITROFURANTOIN MONOHYD/M-CRYST 09/21/2020 12:00:00 AM EDT ca psule 14 TAKE ONE CAPSULE BY MOUTH TWICE A DAY FOR 7 DAYS TAKE ONE CAPSULE BY MOUTH TWICE A DAY FOR 7 DAYS SOLD: 09/21/2020 [facility] 200 mg 09/21/2020 12:00:00 AM EDT tablet 6 TAKE ONE TABLET BY MOUTH THREE TIMES A DAY FOR 2 DAYS TAKE ONE TABLET BY MOUTH THREE TIMES A DAY FOR 2 DAYS SOLD: 09/21/2020 [facility] NITROFURANTOIN, MACROCRYSTALS 25 MG / Ni trofurantoin, Monohydrate 75 MG Oral Capsule 100 mg NITROFURANTOIN MONOHYD/M-CRYST 09/05/2020 12:00:00 AM EDT ca psule 10 TAKE ONE CAPSULE BY MOUTH EVERY 12 HOURS ON A FULL STOMACH WITH MEALS TAKE ONE CAPSULE BY MOUTH EVERY 12 HOURS ON A FULL STOMACH WITH MEALS SOLD: 09/05/2020 [facility] Cholecalciferol 2000 UNT Oral Capsule Vitamin D3 08/12/2020 12:00:00 AM EDT ORAL active [facility] ([facility]) 875-125 mg 08/03/2020 12:00:00 AM EDT tablet 20 TAKE ONE TABLET BY MOUTH TWICE A DAY FOR 10 DAYS TAKE ONE TABLET BY MOUTH TWICE A DAY FOR 10 DAYS SOLD: 08/06/2020 [facility] Amoxicillin 875 MG / Clavulanate 125 MG Oral Tablet Am oxicillin/Clavulanate Potassium 08/03/2020 12:00:00 AM EDT ORAL completed [facility] ([facility]) Omeprazole 20 MG Delayed Release Oral Capsule Omeprazole 06/02/2020 12:00:00 AM EST ORAL active [facility] ([facility]) Dobutamine 2 MG/ML Injectable Solution D OBUTamine (DOBUTREX) 500 mg in dextrose 5 % 250 mL infusion (2,000 mcg/mL) DOBUTamine (DOBUTREX) 500 mg in dextrose 5 % 250 mL infusion (2,000 mcg/mL) 05/31/2020 10:00:00 AM EST 10 ug/ kg/min Intravenous active 10 mcg/kg/min 114.9 kg (34.47 mL/hr, rounded to 34.5 mL/hr), Intravenous, at 34.5 mL/hr, Continuous, Starting 05/31/20 at 1000, For 30 days
Protocol for Dobutamine Stress Echo: IV Dobutamine to start at 10 mcgs/kg/min and titrate to target HR per protocol and MD order.
Confirm if sodium chloride is the preferred base
[facility] Medication administered onsite NITROFURANTOIN, MACROCRYSTALS 25 MG / Ni trofurantoin, Monohydrate 75 MG Oral Capsule Nitrofurantoin Monohyd Macro 100 MG Oral Capsule (MACROBID) Nitrofurantoin Monohyd Macro 100 MG Oral Capsule (MACROBID) 05/31/2020 12:00:00 AM EST 100 mg Oral active Take 1 c apsule by mouth Two times daily with meals for 6 days [facility] 100 mg 05/31/2020 12:00:00 AM EST capsule 12 TAKE ONE CAPSULE BY MOUTH TWICE A DAY WITH MEALS FOR 6 DAYS TAKE ONE CAPSULE BY MOUTH TWICE A DAY WI TH MEALS FOR 6 DAYS SOLD: 06/02/2020 [facility] perflutren lipid microspheres (DEFINITY) injectable suspensi on 9.78 mg [id number] 05/30/2020 10:26:18 AM EST 1.5 mL Intravenous active 9.78 mg (1.5 mL), Intravenous, Once PRN, Other, Echo imaging enhancement, Starting 05/30/20 at 1026, For 72 hours [facility] Medication administered onsite Lisinopril 20 MG Oral Tablet lisinopril (ZESTRIL) tabl et 40 mg lisinopril (ZESTRIL) tablet 40 mg 05/30/2020 09:00:00 AM EST 40 mg Oral active 40 mg, Oral, Daily Standard, First dose on 05/30/20 at 0900, For 30 days [facility] Medication administered onsite 60 ACTUAT Budesonide 0.16 MG/ACTUAT / fo rmoterol fumarate 0.0045 MG/ACTUAT Metered Dose Inhaler budesonide-formoterol (SYMBICORT) 160-4.5 MCG/ACT inhaler 2 puff budesonide-formoterol (SYMBICORT) 160-4.5 MCG/ACT inha ler 2 puff 05/30/2020 09:00:00 AM EST 2 {puff} Inhalation active 2 puff, Inhalation, 2 Times Daily, First dose on 05/30/20 at 0900, For 14 days
Shake well before using
[facility] Medication administered onsite Cholecalciferol 1000 UNT Oral Tablet vit cagle D3 (CHOLECALCIFEROL) tablet 2,000 Units vitamin D3 (CHOLECALCIFEROL) tablet 2,000 Units 2020 09:00:00 AM EST 2000 U Oral active 2,000 Un its, Oral, Daily Standard, First dose on 05/30/20 at 0900, For 30 days
25 mcg vitamin D3 = 1,000 international units vitamin D3.
[facility] Medication administered onsite Spironolactone 25 MG Oral Tablet spironolactone (ALDAC TONE) tablet 25 mg spironolactone (ALDACTONE) tablet 25 mg 05/30/2020 09:00:00 AM EST 25 mg Oral active 25 mg, Oral, Da marvel Standard, First dose on 05/30/20 at 0900, For 30 days [facility] Medication administered onsite Sertraline 50 MG Oral Tablet sertraline (ZOLOFT) table t 100 mg sertraline (ZOLOFT) tablet 100 mg 05/30/2020 09:00:00 AM EST 100 mg Oral active 100 mg, Oral, Daily Standard, First dose on 05/30/20 at 0900, For 30 days [facility] Medication administered onsite NITROFURANTOIN, MACROCRYSTALS 25 MG / Ni trofurantoin, Monohydrate 75 MG Oral Capsule nitrofurantoin (macrocrystal-monohydrate) (MACROBID) capsule 100 mg nitrofurantoin (macrocrystal-monohydrate) (MACROBID) capsule 100 mg 05/30/2020 09:00:00 AM EST 100 mg Oral active 100 mg, Oral, 2 Times Daily With Meals, First dose on 05/30/20 at 0900, For 5 days
Take with food.
[facility] Medication administered onsite Chlorthalidone 25 MG Oral Tablet chlorthalidone (HYGRO TON) tablet 50 mg chlorthalidone (HYGROTON) tablet 50 mg 05/30/2020 09:00:00 AM EST 5 0 mg Oral active 50 mg, Oral, Da marvel Standard, First dose (after last reorder) on 05/30/20 at 0900, For 30 days [facility] Medication administered onsite 0.4 ML Enoxaparin sodium 100 MG/ML Prefi lled Syringe enoxaparin sodium (LOVENOX) injection 40 mg enoxaparin sodium (LOVENOX) injection 40 mg 05/30/2020 09:00:00 AM EST 40 mg Subcutaneous active 40 mg, Subcutaneous, Daily Standard, First dose on 05/30/20 at 0900, For 30 days [facility] Medication administered onsite Amlodipine 5 MG Oral Tablet amlodipine (NORVASC) table t 10 mg amlodipine (NORVASC) tablet 10 mg 05/30/2020 09:00:00 AM EST 10 mg Oral active 10 mg, Oral, Daily Standard, First dose on 05/30/20 at 0900, For 30 days [facility] Medication administered onsite ferrous sulfate 325 MG Delayed Release O ral Tablet ferrous sulfate EC tablet 325 mg ferrous sulfate EC tablet 325 mg 05/30/2020 08:00:00 AM EST 325 mg Oral active 325 mg, Oral, Da marvel with Breakfast, First dose on 05/30/20 at 0800, For 30 days [facility] Medication administered onsite Albuterol 0.83 MG/ML Inhalant Solution a lbuterol (PROVENTIL) nebulizer solution 2.5 mg albuterol (PROVENTIL) nebulizer solution 2.5 mg 2020 11:55:41 PM EST 2.5 mg Nebulization active 2.5 mg, Nebulization, Every 4 hours PRN, Wheezing, Shortness of Breath, Starting Mon05/29/20 at 2355, For 4 days [facility] Medication administered onsite Lisinopril 10 MG Oral Tablet lisinopril (ZESTRIL) tabl et 20 mg lisinopril (ZESTRIL) tablet 20 mg 05/29/2020 06:00:00 PM EST 20 mg Oral completed 20 mg, Oral, Once, Mon05/29/20 at 1800, F or 1 dose
Check vital signs before administering
[facility] Medication administered onsite iohexol (OMNIPAQUE) 350 MG/ML contrast injection 100 mL [id number] 8 05/29/2020 04:00:00 PM EST 100 mL Given by IV completed 100 mL, Given by IV, 1 TIME IMAGING, Mon05/29/20 at 1600, For 1 dose [facility] Medication administered onsite 2.5 mg /3 mL (0.083 %) 05/27/2020 12:00:00 AM EST solu tion for nebulization 75 INHALE 1 VIAL VIA NEBULIZER EVERY 4 HOUR S NEEDED FOR SHORTNESS OF BREATH INHALE 1 VIAL VIA NEBULIZER EVERY 4 HOURS NEEDED FOR SHORTNESS OF BREATH SOLD: 05/28/2020 [facility] 20 mg 05/27/2020 12:00:00 AM EST tablet 10 TAKE TWO TABLETS BY MOUTH EVERY DAY IN THE MORNING TAKE TWO TABLETS BY MOUTH EVERY DAY IN THE MORNING [facility] Estrogens, Conjugated (HALFWAY) 0.625 MG/ML Vaginal Cream conjugated estrogens (PREMARIN) vaginal cream conjugated estrogens (PREMARIN) vaginal cream 06/28/2017 12:00:00 AM EST aborted Vagin al atrophy 1 gm vaginally QHS x 2 wks, decrease to 2x wk x 3 wks, then 1 gm weekly ongoing [facility] Vaginal atrophy Sertraline 50 MG Oral Tablet sertraline (ZOLOFT) 50 MG tablet sertraline (ZOLOFT) 50 MG tablet 05/15/2017 12:00:00 AM [facility] MG Oral Tablet montelukast (SINGULAIR) 10 MG tablet montelukast (SINGULAIR) 10 MG tablet 05/07/2017 12:00:00 AM EST aborted [facility] Omeprazole 20 MG Delayed Release Oral Ca psule omeprazole (PRILOSEC) 20 MG capsule omeprazole (PRILOSEC) 20 MG capsule 12/14/2016 12:00:00 AM EDT aborted TAKE 1 CAPSULE B EFORE BREAKFAST AT 7:30 A.M. TAKE 30 MINUTES BEFORE BREAKFAST [facility] Ranitidine 300 MG Oral Tablet ranitidine (ZANTAC) 300 MG tablet ranitidine (ZANTAC) 300 MG tablet 12/14/2016 12:00:00 AM EDT aborted TAKE 1 TABLET NIGHTLY [facility] Lisinopril 20 MG Oral Tablet lisinopril (PRINIVIL,ZEST RIL) 20 MG tablet lisinopril (PRINIVIL,ZESTRIL) 20 MG tablet 20 mg Oral aborted Take 20 mg by mouth daily. [facility] Metformin hydrochloride 500 MG Oral Tablet metFORMIN ( GLUCOPHAGE) 500 MG tablet metFORMIN (GLUCOPHAGE) 500 MG tablet 500 mg Oral a borted Take 500 mg by mouth 2 (two) times a day with meals [facility] Insurance Providers Payer name Policy type / Coverage type Policy ID Covered constitution party ID Covered constitution party's relationship to isbell Policy Isbell Plan Information BC TRAD PPO POS HMO BCARD [id number] Patient is Insured [id number] Medicare Natl Govt Servic Medicare Primary [id number] Self MEDICARE [id number] SP [id number] A Medicare Natl Govt Servic Medicare Primary [id number] Self [id number] Medicare Natl Govt Servic Medicare Primary [id number] Self [id number] Medicare Natl Govt Servic Medicare Primary [id number] Self [id number] Medicare Natl Govt Servic Medicare Primary [id number] Self [id number] Aetna (pr) Medigap Part B [id number] Self [id number] AETNA U [id number] Self [id number] BCBS Ppo Commercial [id number] Self BS [place] Trad/[place] Medigap Part B [id number] Self [id number] [place] PPO 302/307 [id number] SP [id number] EXCELLUS H [id number] Self [id number] [place] PPO 302/307 [id number] SP [id number] [place] PPO 302/307 [id number] SP [id number] BS [place] Trad/MX Commercial [id number] Self [id number] BS [place] Trad/MX Commercial [id number] Self 802 EXCELLUS H [id number] Self [id number] [facility] Trad/MX Commercial [id number] Self [id number] EXCELLUS BCBS [id number] EXCELLUS BCBS [id number] Teresa VYS [id number] [employer] Blue Cross and Blue Shield - [place] Blue Cross/B lue Shield [id number] Self [id number] RPR- Needs Payer Match [id number] Self [id number] AETNA-O/P [id number] 18 [id number] [facility] [id number] SP [id number] EXCELLUS BLUE CROSS BLUE SHIELD HEA [id number] S [id number] BCBS/[place] Commercial [id number] Self [id number] BLUE CROSS BLUE SHIELD -O/P [id number] 18 [id number] [facility] [place] [id number] Self S [id number] BLUE CROSS BLUE SHIELD -CLINIC [id number] [employer] Blue Cross Medigap Part B [id number] Self Aetna Health Care Commercial [id number] Self Aetna Medigap Part B [id number] Self BLUE CROSS BLUE SHIELD -RECURRING [id number] 18 [id number] AETNA [place] [id number] SP [id number] AETNA-RECURRING [id number] 18 [id number] AETNA-O/P [id number] 18 [id number] AETNA [place] P [id number] S [id number] Problems, Conditions, and Diagnoses Code Display Name Description Problem Type Effective Dates Data Source(s) R06.02 Shortness of breath Shortness of breath Diagnosis 0 05/29/2020 05:05:13 PM [facility] covid r/o covid r/o Diagnosis 05/29/2020 11:50:00 AM [facility] Z20.828 Contact with and (suspected) exposure to other viral communicable diseases Contact with and (suspected) exposure to other viral communicable diseases Diagnosis 05/29/2020 10:44:10 AM [facility] [id number] Allergic asthma without status asthmatic us Allergic asthma without status asthmaticus Problem 01/27/2021 12:00:00 AM EDT [facility] ([facility], ) [id number] Essential hypertension Essential hypertension Problem 01/27/2021 12:00:00 AM EDT [facility] ([facility], ) Surgeries/Procedures Procedure Description Date Indications Data Source(s) Therapeutic, Prophylactic Or Diagnostic Injection Subq/Im 03/29/2021 12:00:00 AM EST [facility] ([facility]) OFFICE OUTPATIENT VISIT 15 MINUTES 03/29/2021 12:00:00 AM EST [facility] ([facility]) OFFICE OUTPATIENT VISIT 25 MINUTES 02/09/2021 12:00:00 AM EDT [facility] ([facility]) Spirometry 02/09/2021 12:00:00 AM EDT M EDENT ([facility]) OFFICE OUTPATIENT VISIT 15 MINUTES 02/09/2021 12:00:00 AM EDT [facility] ([facility]) OFFICE OUTPATIENT NEW 30 MINUTES 01/27/2021 12:00:00 A M EDT [facility] ([facility]) OFFICE OUTPATIENT VISIT 25 MINUTES 12/28/2020 12:00:00 AM EDT [facility] ([facility]) OFFICE OUTPATIENT VISIT 25 MINUTES 08/03/2020 12:00:00 AM EDT [facility] ([facility]) Spirometry 08/03/2020 12:00:00 AM EDT M [facility] ([facility]) OFFICE OUTPATIENT VISIT 15 MINUTES 08/03/2020 12:00:00 AM EDT [facility] ([facility]) POCT GLUCOSE, DOCKED <td>POCT GLUCOSE, DOCKED</td ><td>Routine</td><td>05/31/2020 11:49 AM EST</td><td></td><td> </td> 05/31/2020 11:49:00 AM [facility] ECHO TTHRC R-T 2D W/WOM-MODE COMPL SPEC&COLR DOP <td>E CHOCARDIOGRAM 2D COMPLETE</td><td>Routine</td><td>05/31/2020 9:51 AM EST</td><td></td><td> </td> 05/31/2020 09:51:45 AM [facility] ECHOCARDIOGRAM PHARMACOLOGICAL STRESS TEST (DOBUTAMINE ) <td>ECHOCARDIOGRAM PHARMACOLOGICAL STRESS TEST (DOBUTAMINE)</td><td>Routine</td><td>05/31/2020 9:42 AM EST</td><td></td><td> </td> 05/31/2020 09:42:57 AM [facility] POCT GLUCOSE, DOCKED <td>POCT GLUCOSE, DOCKED</td ><td>Routine</td><td>05/31/2020 8:19 AM EST</td><td></td><td> </td> 05/31/2020 08:19:00 AM [facility] GLUCOSE QUANTITATIVE BLOOD XCPT REAGENT STRIP <td>POCT GLUCOSE, DOCKED</td><td>Routine</td><td>05/30/2020 9:09 PM EST</td><td></td><td> </td> 05/30/2020 09:09:00 PM [facility] GLUCOSE QUANTITATIVE BLOOD XCPT REAGENT STRIP <td>POCT GLUCOSE, DOCKED</td><td>Routine</td><td>05/30/2020 5:00 PM EST</td><td></td><td> </td> 05/30/2020 05:00:00 PM [facility] DUP-SCAN ARTL FRANCIS ABDL/PEL/SCROT&/RPR ORGN COMPL <td>U S DOPPLER ABDOMEN PELVIS ORGANS COMPLETE 88587</td><td>Routine</td><td>05/30/2020 12:38 PM EST</td><td></td><td> </td> 05/30/2020 12:38:44 PM [facility] 25 HYDROXY INCLUDES FRACTIONS IF PERFORMED <td>VITAMIN D 25 HYDROXY, TOTAL</td><td>Routine</td><td>05/30/2020 10:29 AM EST</td><td></td><td> </td> 05/30/2020 10:29:00 AM [facility] FOLIC ACID SERUM <td>FOLATE</td><td>Routine</ td><td>05/30/2020 10:29 AM EST</td><td></td><td> </td> 05/30/2020 10:29:00 AM [facility] CYANOCOBALAMIN VITAMIN B-12 <td>VITAMIN B12</td><td>Ro utine</td><td>05/30/2020 10:29 AM EST</td><td></td><td> </td> 05/30/2020 10:29:00 AM [facility] ECHO TTHRC R-T 2D W/WOM-MODE COMPL SPEC&COLR DOP <td>E CHOCARDIOGRAM 2D COMPLETE</td><td>Pending Discharge</td><td>05/30/2020 10:26 AM EST</td><td></td><td></td> 05/30/2020 10:26:49 AM EST [facility] GLUCOSE QUANTITATIVE BLOOD XCPT REAGENT STRIP <td>POCT GLUCOSE, DOCKED</td><td>Routine</td><td>05/30/2020 8:18 AM EST</td><td></td><td> </td> 05/30/2020 08:18:00 AM [facility] URNLS DIP STICK/TABLET REAGENT AUTO MICROSCOPY <td>URI NALYSIS WITH MICROSCOPIC</td><td>Routine</td><td>05/30/2020 6:15 AM EST</td><td></td><td> </td> 05/30/2020 06:15:00 AM [facility] BLOOD COUNT COMPLETE AUTO&AUTO DIFRNTL WBC COUNT <td>C BC AND DIFFERENTIAL</td><td>Routine</td><td>05/30/2020 4:45 AM EST</td><td></td><td> </td> 05/30/2020 04:45:00 AM [facility] TROPONIN QUANTITATIVE <td>TROPONIN T</td><td>Routi ne</td><td>05/30/2020 4:45 AM EST</td><td></td><td> </td> 05/30/2020 04:45:00 AM [facility] PHOSPHORUS INORGANIC <td>PHOSPHORUS LEVEL</td><td >Routine</td><td>05/30/2020 4:45 AM EST</td><td></td><td> </td> 05/30/2020 04:45:00 AM [facility] MAGNESIUM <td>MAGNESIUM LEVEL</td><td> Routine</td><td>05/30/2020 4:45 AM EST</td><td></td><td> </td> 05/30/2020 04:45:00 AM [facility] HEMOGLOBIN GLYCOSYLATED A1C <td>HEMOGLOBIN A1C</td><td>Routine</td><td>05/30/2020 4:45 AM EST</td><td></td><td> </td> 05/30/2020 04:45:00 AM [facility] BASIC METABOLIC PANEL CALCIUM TOTAL <td>BASIC METABOLI C PANEL</td><td>Routine</td><td>05/30/2020 4:45 AM EST</td><td></td><td> </td> 05/30/2020 04:45:00 AM [facility] EKG ED PHYSICIAN INTERPRETATION <td>EKG ED PHYSICIAN INTERPRETATION</td><td>Routine</td><td>05/29/2020 4:50 PM EST</td><td></td><td> </td> 05/29/2020 04:50:20 PM [facility] EKG 12 LEAD (UNSOLICITED COMPUTER ORDER) <td>EKG 12 LE AD (UNSOLICITED COMPUTER ORDER)</td><td>Routine</td><td>05/29/2020 4:49 PM EST</td><td></td><td></td> 05/29/2020 04:49:38 PM [facility] EKG 12-LEAD - CMAXX REPORT <td>EKG 12-LEAD - CMAXX REPORT</td><td></td><td>05/29/2020 4:49 PM EST</td><td></td><td></td> 05/29/2020 04:49:38 PM [facility] EKG 12-LEAD - CMAXX REPORT <td>EKG 12-LEAD - CMAXX REPORT</td><td></td><td>05/29/2020 4:49 PM EST</td><td></td><td></td> 05/29/2020 04:49:38 PM [facility] EKG 12-LEAD <td>EKG 12-LEAD</td><td>STAT </td><td>05/29/2020 4:49 PM EST</td><td></td><td> </td> 05/29/2020 04:49:38 PM [facility] EKG 12-LEAD - CMAXX REPORT <td>EKG 12-LEAD - CMAXX REPORT</td><td></td><td>05/29/2020 4:49 PM EST</td><td></td><td></td> 05/29/2020 04:49:00 PM [facility] TROPONIN QUANTITATIVE <td>POCT ISTAT TROPONIN</td> <td>Routine</td><td>05/29/2020 4:41 PM EST</td><td></td><td> </td> 05/29/2020 04:41:[address] [facility] [address] ANGIOGRAPHY CHEST W/CONTRAST/NONCONTRAST <td>CT ANG IOGRAPHY THORAX 45963</td><td>CODE</td><td>05/29/2020 3:57 PM EST</td><td></td><td> </td> 05/29/2020 03:57:34 PM [facility] XR CHEST FRONTAL ONLY [id number] <td>XR CHEST FRONTAL ONLY [id number]</td><td>STAT</td><td>05/29/2020 12:49 PM EST</td><td></td><td> </td> 05/29/2020 12:49:35 PM [facility] EKG ED PHYSICIAN INTERPRETATION <td>EKG ED PHYSICIAN INTERPRETATION</td><td>Routine</td><td>05/29/2020 12:48 PM EST</td><td></td><td> </td> 05/29/2020 12:48:49 PM [facility] TROPONIN QUANTITATIVE <td>POCT ISTAT TROPONIN</td> <td>Routine</td><td>05/29/2020 12:27 PM EST</td><td></td><td> </td> 05/29/2020 12:27:00 PM [facility] BASIC METABOLIC PANEL CALCIUM IONIZED <td>POCT ISTAT CHEM8</td><td>Routine</td><td>05/29/2020 12:23 PM EST</td><td></td><td> </td> 05/29/2020 12:23:00 PM [facility] NATRIURETIC PEPTIDE <td>PROBNP</td><td>Routine</ td><td>05/29/2020 12:19 PM EST</td><td></td><td> </td> 05/29/2020 12:19:00 PM [facility] FIBRIN DGRADJ PRODUCTS D-DIMER QUAL/SEMIQUAN <td>D-DIM ER, QUANTITATIVE</td><td>STAT</td><td>05/29/2020 12:19 PM EST</td><td></td><td> </td> 05/29/2020 12:19:00 PM [facility] BLOOD COUNT COMPLETE AUTOMATED <td>CBC AND DIFFERENTIAL</td><td>Routine</td><td>05/29/2020 12:19 PM EST</td><td></td><td> </td> 05/29/2020 12:19:00 PM [facility] MAGNESIUM <td>MAGNESIUM LEVEL</td><td> STAT</td><td>05/29/2020 12:19 PM EST</td><td></td><td> </td> 05/29/2020 12:19:00 PM [facility] HEPATIC FUNCTION PANEL <td>HEPATIC FUNCTION PANEL A</td><td>STAT</td><td>05/29/2020 12:19 PM EST</td><td></td><td> </td> 05/29/2020 12:19:00 PM [facility] BASIC METABOLIC PANEL CALCIUM TOTAL <td>BASIC METABOLI C PANEL</td><td>STAT</td><td>05/29/2020 12:19 PM EST</td><td></td><td> </td> 05/29/2020 12:19:00 PM [facility] BLOOD GASES ANY COMBINATION PH PCO2 PO2 CO2 HCO3 <td>P OCT ISTAT VBG/LAC</td><td>Routine</td><td>05/29/2020 12:18 PM EST</td><td></td><td> </td> 05/29/2020 12:18:00 PM [facility] EKG 12-LEAD - CMAXX REPORT <td>EKG 12-LEAD - CMAXX REPORT</td><td></td><td>05/29/2020 12:07 PM EST</td><td></td><td></td> 05/29/2020 12:07:33 PM [facility] EKG 12-LEAD - CMAXX REPORT <td>EKG 12-LEAD - CMAXX REPORT</td><td></td><td>05/29/2020 12:07 PM EST</td><td></td><td></td> 05/29/2020 12:07:33 PM [facility] EKG 12-LEAD <td>EKG 12-LEAD</td><td>STAT </td><td>05/29/2020 12:07 PM EST</td><td></td><td> </td> 05/29/2020 12:07:33 PM [facility] EKG 12-LEAD - CMAXX REPORT <td>EKG 12-LEAD - CMAXX REPORT</td><td></td><td>05/29/2020 12:07 PM EST</td><td></td><td></td> 05/29/2020 12:07:00 PM [facility] RESPIRATORY PATHOGEN PANEL <td>RESPIRATORY PATHOGEN PANEL</td><td>Routine</td><td>05/29/2020 12:02 PM EST</td><td></td><td> </td> 05/29/2020 12:02:00 PM [facility] COVID-19 PCR <td>COVID-19 PCR</td><td>Rou marilou</td><td>05/29/2020 12:02 PM EST</td><td></td><td> </td> 05/29/2020 12:02:00 PM [facility] Electrocardiogram Interpretation & Report Only 021 12:00:00 AM EST [facility] ([facility]) Results ID Date Data Source [id number] 03/03/2021 02:59:49 PM [address] [facility] NT INFORMATIONPatient MRN Name Date of Age Gend*PT [id number] Cheyenne Gloria 1960 60 years F ---PT Location Admission Date/Time Visit ID Attending Provider --- --- --- --- EPI ID CSN Admitting Pro vider [id number] ---Cardiology History and PhysicalName: Cheyenne Gloria Gender: femaleDate of : 1960 Age: 60 yearsPrimary Care Provider / Referring Physician: CARTER SILVA MDCardiology Telemedicine VisitPatient was identified by name and date of .Verbal consent was obtained from the patient for this telemedicine visit.Patient is aware of the risks, limitations, and benefits of a telemedicinevisit.This telemedicine assessment was conducted remotely with the assistance ofallyvemunication technology: Telephone Only Codes 39191: 21-30 minutes of medicaldiscussion: Telephone OnlyCurrent HistoryChief Complaint: This is a Telemedicine visitHPI:This patient is a 60 years female with the following updated problem list:1. Extensive FH CAD2. HTN on multiple meds3. Reactive airways4. GERD5. S/p bariatric surgery6. OSA7. Nuclear stress test negative . [facility] emergency room for shortness of breath with anequivocal stress echocardiogram, we performed a Lexiscan nuclear stress test inFebruary which was without ischemiaThis is a follow-up visitReview of Systems General Denies dizziness or lightheadedness. Denies any recent, unexpectedweight changes. HEENT Denies any loss or change of vision. Denies tinnitus. Respiratory SOB and has pleuritic pain Cardiac Denies chest pain or pressure, denies palpitations GI Denies melena, hematochezia, nausea, or vomiting. MS Denies any lower extremity edema. Neuro Denies speech, motor, or sensory impairment. Psych Denies depression or anxiety. Endo Denies polyuria or polydipsia, denies temperature intolerance. Derm Denies diaphoresis, non-healing skin woundsPast HistoryPast Medical History:Diagnosis Date Asthma Depression HypertensionNo past surgical history on file.Family HistoryProblem Relation Age of Onset Cancer Mother Heart attack Father Heart attack Sister Coronary artery disease BrotherSocial HistorySocioeconomic History Marital status: Single Spouse name: Not on file Number of children: Not on file Years of education: Not on file Highest education level: Not on fileOccupational History Not on fileTobacco Use Smoking status: Never Smoker Smokeless tobacco: Never UsedSubstance and Sexual Activity Alcohol use: Yes Comment: rare Drug use: No Sexual activity: Not on fileOther Topics Concern Bike Helmet Not Asked History of Falls Not Asked Self-Exams Not Asked Caffeine Concern Not Asked Hobby Hazards Not Asked Sleep Concern Not Asked Daily Calcium Supplement Not Asked Lead Exposure Not Asked Special Diet Not Asked Daily Vitamin D Supplement Not Asked Service Not Asked Stress Concern Not Asked Domestic Violence in home Not Asked Radon exposure Not Asked Weight Concern Not Asked Exercise Not Asked Seat Belt Not Asked Well water Not Asked Firearms in home Not AskedSocial History Narrative Not on fileSocial Determinants of HealthFinancial Resource Strain: Difficulty of Paying Living Expenses:Food Insecurity: Worried About Running Out of Food in the Last Year: Ran Out of Food in the Last Year:Transportation Needs: Lack of Transportation (Medical): Lack of Transportation (Non-Medical):Physical Activity: Days of Exercise per Week: Minutes of Exercise per Session:Stress: Feeling of Stress :Social Connections: Frequency of Communication with Friends and Family: Frequency of Social Gatherings with Friends and Family: Attends [employer] Services: Active Member of Clubs or Organizations: Attends Club or Organization Meetings: Marital Status:Intimate Partner Violence: Fear of Current or Ex-Partner: Emotionally Abused: Physically Abused: Sexually Abused:Medications and AllergiesALLERGIES/SENSITIVITIES: Catapres [clonidine] and Tetracyclines & relatedCurrent Outpatient Medications: Albuterol Sulfate (VENTOLIN HFA IN), Inhale as needed , Disp: , Rfl: amLODIPine (NORVASC) 10 MG tablet, Take 10 mg by mouth daily, Disp: , Rfl: atorvastatin (LIPITOR) 10 MG tablet, TAKE 1 TABLET DAILY, Disp: 90 tablet,Rfl: 0 budesonide-formoterol (SYMBICORT) 160-4.5 MCG/ACT inhaler, Inhale 2 puffs 2(two) times a day, Disp: , Rfl: CHLORTHALIDONE PO, Take by mouth daily, Disp: , Rfl: lisinopril (PRINIVIL,ZESTRIL) 40 MG tablet, Take 40 mg by mouth daily, Disp:, Rfl: montelukast (SINGULAIR) 10 MG tablet, Take 10 mg by mouth nightly, Disp: ,Rfl: omeprazole (PriLOSEC) 20 MG capsule, , Disp: , Rfl: Sertraline HCl (ZOLOFT PO), Take by mouth daily, Disp: , Rfl:PhysicalPHYSICAL EXAM: Deferred due to Telemedicine encounterHt 1.626 m (5' 4") | Wt (!) 123.4 kg (272 lb) | BMI 46.69 kg/m DiagnosticsLabReviewedImaging/Testing: ReviewedEKG: ReviewedAssessment & PlanASSESSMENT/PLAN:1. Family history of coronary artery disease: The patient had no evidence onstress test now multiple times of coronary ischemia.2. Essential hypertension: This is well controlled3. Obstructive sleep apnea: She does use CPAP4. Reactive airway disease5. Dyslipidemia6. SOB: No obvious cardiac reason to have SOBI have spent 15 minutes with the patient, counseling/coordinating the patient'scare.I discussed the above listed diagnoses and discussed Results of diagnostictesting, Prognosis, Management option risks and benefits, Treatment/managementinstructions, Compliance and Risk Factor ReductionFollow up has been arranged and the patient knows to call if any issues arisebetween now and then, all question were answered.Signature: Krishna Lomas MDDate: March 03, 2021Time: 2:32 PMThis document or parts of this document, were dictated using [employer]. A reasonable attempt at proofreading has been made to minimize errors.Please call with any questions or corrections. Name Value Range Interpretation Code Description Data Beatrice rce(s) Supporting Document(s) ID Date Data Source [id number] 02/09/2021 09:06:00 AM EDT [facility] ([facility], ) Name Value Range Interpretation Code Description Data Beatrice rce(s) Supporting Document(s) PDFReport Laboratory test result [facility] ([facility], ) FVC-Pred 3.21 L [facility] ([facility]) FVC-LLN 2.54 L [facility] ([facility]) FVC-%Pred-Pre 122 L [facility] ([facility]) FVC-Pre 3.92 L [facility] ([facility]) Fev1-%Pred-Pre 123 L [facility] ([facility]) Fev1-Pre 3.08 L [facility] ([facility]) Fev1-Pred 2.49 L [facility] ([facility]) Fev1-LLN 1.92 L [facility] ([facility]) Fev6-%Pred-Pre 126 L [facility] ([facility]) Fev6-Pre 3.92 L [facility] ([facility]) Fev6-Pred 3.10 L [facility] ([facility]) Uln7koh-Rpy 79 % [facility] ([facility]) Fev6-LLN 2.44 L [facility] ([facility]) Gnt7vjl-Zold 78 % [facility] ([facility]) Ers3xum-Knxm 97 % [facility] ([facility]) Sak6xby-GBN 68 % [facility] ([facility]) Rjp7zyg-%Pred-Pre 100 % [facility] ([facility]) FEFMax-Pred 6.19 L/E/sec [facility] ([facility]) FEFMax-Pre 5.83 L/E/sec [facility] ([facility]) Wgk4zen-Ind 100 % [facility] ([facility]) Osg6lud-%Pred-Pre 103 % [facility] ([facility]) [id number]-Auta 2.34 L/E/sec [facility] ([facility]) FEFMax-LLN 4.53 L/E/sec [facility] ([facility]) FEFMax-%Pred-Pre 94 L/E/sec [facility] ([facility]) Vfk4625-%Pred-Pre 122 L/E/sec [facility] ([facility]) Hpo4673-PDY 1.13 L/E/sec [facility] ([facility]) Efd5954-Dvo 2.87 L/E/sec [facility] ([facility]) Dsa1wvx7-Aove 81 % [facility] ([facility]) ExpTime-Pre 5.99 sec [facility] ([facility]) Zmf7sqi0-Cqv 79 % [facility] ([facility]) Bbj6mbl4-%Pred-Pre 97 % [facility] ([facility]) Idq5mmp5-HKM 72 % [facility] ([facility]) ID Date Data Source [id number] 02/06/2021 08:33:04 AM EDT Jordana Vail al Note status: FINAL (SIGNED)Full Name: Janie BANUELOS of : 1960Visit ID: [id number] Record Number: [id number]: 60YSex: FemaleRoom Location: ER ROOMSBed Location: ER 16Date of Service: 02/01/2021 03:29Creation Date: 02/01/2021 03:29Created by: NIMO MOONEYPrimary Care Physician: UNKNOWN, UNKNOWNProgress time 1: 2100 Progress comments 1: Patient received from staff topher PA. CT angiogram to evaluate for PE is pending.Progress time 2: 0030 Progress comments 2: CT angiogram of the chest is resulted read by radiology is negative for PE but shows an incidental finding of a mediastinal lymphadenopathy. I explained this to patient and explained her the discharge instructions and treatment plan and explained to her that she will be placed on NSAIDs for the pain we will treat this as a superficial thrombus and she voiced understanding and agreement.Laboratory results: See previous providers noteRadiology results: 01/31/2021 7:18 PMDiagnosis: Acute left arm painDianosis level 2Diagnosis level 3Disposition: HomeDisposition time: 003 Discharge condition: Improveddc instructions: Take aspirin another NSAID medication. Return to the ED for any worsening symptoms. Follow-up with primary care.Patient did not require critical care timeActing as scribe in the presence of: Rashad De Souza signature: NIMO Angela signature date: 02/01/2021 03:32Physician signature: Fernandez DE SOUZA signature date: 02/04/2021 20:56 Name Value Range Interpretation Code Description Data Beatrice rce(s) Supporting Document(s) ID Date Data Source [id number] 02/05/2021 11:03:07 PM EDT [facility] Note Status: FINAL (SIGNED)Full Name: Spencer BANUELOS Date: 1960Visit ID: [id number] Record Number: [id number]: 60YSex: FemaleRoom Location: ER ROOMSBed Location: ER 16Date of Service: 01/31/2021 17:59Creation Date: 01/31/2021 17:59Created By: ARMIDA ARCHEREncompass Health Physician: UNKNOWN, UNKNOWNTime patient first seen: 1800 Informant: PatientHPI Chief Complaint: Left arm pain HPI duration: 3 daysHPI comments: 60-year-old right-handed female patient with a history of hypertension, hyperlipidemia, type 2 diabetes, GERD and sleep apnea presents for evaluation of her left arm pain. Patient states she had blood drawn on 12/28/2020, and developed a large area of bruising. She states the bruising has since resolved, however 3 days ago she felt a "lump" in the arm and developed pain. Patient states over the last day or 2 she is also felt unwell in general. She has felt mildly short of breath with chest pressure that radiates up to her neck. Patient denies any palpitations. She denies any fevers, chills or body aches. Patient denies any cardiac history, she had a negative nuclear stress in June of this year. Patient denies any history of PE or DVT.Review of SystemsAll systems reviewed and negative except as noted in HPIAll systems reviewed and negative except as noted in HPI or noted belowED Triage Note: pt c/o left arm pain, had blood drawn on 12/28/20, hematoma, resolved, painful still, tender to touch, hard feeling [RENA ABRAHAM 01/31/21 17:47]Past Medical/Surgical HistoryPast medical/surgical history reviewedHome MedicationsHome medications reviewedamLODIPine, 10 milligram orally daily atorvastatin, 10 milligram orally daily Chlorthalidone, 25 milligram orally daily lisinopriL, 40 milligram orally daily metFORMIN, 500 milligram orally 2 times per day Montelukast, 10 milligram orally daily omeprazole Delayed Release Capsule, 20 milligram orally daily sertraline, 100 milligram orally daily Spironolactone, 25 milligram orally daily Ventolin HFA 90 mcg/actuation Aerosol, 2 puff inhaled every 6 hours PRN shortness of breath or wheezing AllergiesAllergies reviewedLast Verified By: RENA ABRAHAM RN on 01/31/2021 17:47Catapres, Tetracycline Family HistoryFamily history reviewedSocial history reviewedVital SignsVital signs reviewedMaximum temperature within the last 24 hours: 97.8 FDate/time of maximum temperature: 01/31/2021 20:34Most recent vital signsBP: 150/72 01/31/2021 20:34 Pulse: 63 01/31/2021 20:34 Temp: 97.8 F 01/31/2021 20:34 Resp: 18 01/31/2021 20:34 O2 Sat: 96.0%(Room Air) 01/31/2021 20:34 Calculated BMI: 45.3 01/31/2021 17:42 Admission height (inches): 65Admission weight (kgs): 123.6Triage Vital SignsTemp: 97.1F 01/31/2021 17:42 Pulse: 79 bpm 01/31/2021 17:42 Respirations: 18 01/31/2021 17:42 Blood Pressure: 174/90 mmHg 01/31/2021 17:42 O2Sat: 99 % 01/31/2021 17:42 Height: 65 in 01/31/2021 17:42 Weight: 123.6 kg 01/31/2021 17:42 Calculated BMI: 45.3 01/31/2021 17:42 Physical ExamConst: no apparent distress, appears stated age, comments: Hypertensive, vitals otherwise within normal limits. Patient appears well.Eyes: within normal limits, extraocular movements intact, PERRL, no conjunctival injection, sclera anictericHENT: Within normal limits, Normocephalic atraumatic, Tympanic membrane normal, No nasal discharge, Oral mucosa moist/clearNeck: Within normal limits, No lymphadenopathyCVS: Within normal limits, Regular rate and rhythm, No rubs/gallops/murmurs, comments: No tachycardia.Resp: Within normal limits, Clear to auscultation bilaterally, No wheezes/rales/rhonchi, comments: Breathing easily, O2 sat 99% on room air.GI: Within normal limits, Non-tender, Normal bowel sounds, No guarding/rebound/tenderness, No organomegalyMusc: Within normal limits, Joints normal, Range of motion normal, comments: Full range of motion of left shoulder, elbow, wrist and all digits.Extrem: Within normal limits, No clubbing/cyanosis/edema, No calf tendernessExtremcomments: No left axillary lymphadenopathy.Neuro: Within normal limits, No lateralizing deficitsSkinWithin normal limits: False, No rash, No bruising, comments: No warmth or erythema over the left upper extremity. There is a small palpable lesion left antecubital fossa.Back: Within normal limits, No CVA tendernessPulses Exam:Right radial pulse: 2 plusPulses Exam:Left radial pulse: 2 plusInitial impression: Acute left arm pain, DVT, superficial thrombophlebitis, ACS, PEOrdersStart Date;Description;Frequency;Ordered By;Status01/31/2021;CHEST PORTABLE-SINGLE ;Once;MIX, ARMIDA;01/31/2021;CONTINUOUS PRECISION ASSEMBLER BENCH ;Once;MIX, ARMIDA;01/31/2021;IV - SAFESITE - INSERT & MAINTAIN ;Once;MIX, ARMIDA;01/31/2021;OXIMETRY-CONTINUOUS (MONITORING ONLY-NURSING TO DOCUMENT) ;Once;MIX, ARMIDA;01/31/2021;US-DOPPLER UPPER EXT VEIN - LEFT ;Once;MIX, ARMIDA;01/31/2021;B-TYPE NATRIURETIC PEPTID ;Once;MIX, ARMIDA;01/31/2021;CBC DIFF ;Once;MIX, ARMIDA;01/31/2021;CK ;Once;MIX, ARMIDA;01/31/2021;COMPREHENSIVE PANEL ;Once;MIX, LEIGHANN E;01/31/2021;EKG ED- (and please print old EKG) ;Once;MIX, ARMIDA;01/31/2021;MAGNESIUM ;Once;MIX, ARMIDA;01/31/2021;PT/INR ;Once;MIX, ARMIDA;01/31/2021;PTT ;Once;MIX, ARMIDA; 01/31/2021;TROPONIN I ;Once;MIX, ARMIDA;01/31/2021;CTA-CHEST (PE) ;Once;MIX, ARMIDA;01/31/2021;SODIUM CHLORIDE 0.9% 500 ML IV ;ED - ONE TIME ONLY;MIX ARMIDA;InactiveLaboratory resultsAll Lab ResultsOrder;Test;Value;Reference Range;Comments;Status;CollectionB-TYPE NATRIURETIC PEPTID;B-NATRIURETIC PEPTID;25 ;(0-100 pg/mL);;Final Result ;01/31/2021 18:35:00CBC DIFF;WBC;8.2 ;(4.8-10.8 K/uL);;Final Result ;01/31/2021 18:35:00CBC DIFF;RED BLOOD CELL;4.85 ;(4.20-5.40 M/uL);;Final Result ;01/31/2021 18:35:00CBC DIFF;HEMOGLOBIN;11.2 L ;(12.0-16.0 gm/dL);;Final Result ;01/31/2021 18:35:00CBC DIFF;HEMATOCRIT;34.2 L ;(36.0- 48.0 %);;Final Result ;01/31/2021 18:35:00CBC DIFF;MCV;70.6 L ;(80.0-100.0 fL);;Final Result ;01/31/2021 18:35:00CBC DIFF;MCHC;32.6 ;(30.0-36.5 %);;Final Result ;01/31/2021 18:35:00CBC DIFF;MCH;23.0 L ;(27.0-34.0 pg);;Final Result ;01/31/2021 18:35:00CBC DIFF;RDW;15.6 H ;(11.0-15.0 %);;Final Result ;01/31/2021 18:35:00CBC DIFF;PLATELET COUNT;283 ;(130-450 K/uL);;Final Result ;01/31/2021 18:35:00CBC DIFF;MPV;9.6 ;(6.0-12.0 fL);;Final Result ;01/31/2021 18:35:00CBC DIFF;NEUTROPHIL;62 ;(37-80 %);;Final Result ;01/31/2021 18:35:00CBC DIFF;LYMPHOCYTE;30 ;(10-50 %);;Final Result ;01/31/2021 18:35:00CBC DIFF;MONOCYTE;6 ;(0-12 %);;Final Result ;01/31/2021 18:35:00CBC DIFF;EOSINOPHIL;1 ;( < =8 %);;Final Result ;01/31/2021 18:35:00CBC DIFF;BASOPHIL;1 ;( < =3 %);;Final Result ;01/31/2021 18:35:00CBC DIFF;GUANAKO#;5.0 ;(1.8-8.6 K/uL);;Final Result ;01/31/2021 18:35:00CBC DIFF;LYMPHOCYTE #;2.5 ;(0.5-5.0 K/uL);;Final Result ;01/31/2021 18:35:00CBC DIFF;MONOCYTE #;0.5 ;(0.0-1.3 K/uL);;Final Result ;01/31/2021 18:35:00CBC DIFF;EOSINOPHIL #;0.1 ;(0.0-0.9 K/uL);;Final Result ;01/31/2021 18:35:00CBC DIFF;BASOPHIL #;0.1 ;(0.0-0.3 K/ul);;Final Result ;01/31/2021 18:35:00CK;CK;100 ;(21-215 U/L);;Final Result ;01/31/2021 18:35:00COMPREHENSIVE PANEL;SODIUM;141 ;(136-145 mmol/L);;Final Result ;01/31/2021 18:35:00COMPREHENSIVE PANEL;POTASSIUM;3.5 ;(3.5- 5.2 mmol/L);;Final Result ;01/31/2021 18:35:00COMPREHENSIVE PANEL;CHLORIDE;108 ;(100-108 mmol/L);;Final Result ;01/31/2021 18:35:00COMPREHENSIVE PANEL;CARBON DIOXIDE;22 ;(21-32 mmol/L);;Final Result ;01/31/2021 18:35:00COMPREHENSIVE PANEL;GLUCOSE;121 H ;(70-100 mg/dL);;Final Result ;01/31/2021 18:35:00COMPREHENSIVE PANEL;BUN;14 ;(7-21 mg/dL);;Final Result ;01/31/2021 18:35:00COMPREHENSIVE PANEL;Creatinine;1.2 ;(0.6-1.3 mg/dL);;Final Result ;01/31/2021 18:35:00COMPREHENSIVE PANEL;CALCIUM;9.3 ;(8.5- 10.8 mg/dL);;Final Result ;01/31/2021 18:35:00COMPREHENSIVE PANEL;GFR;44 ;;;Final Result ;01/31/2021 18:35:00COMPREHENSIVE PANEL;TOTAL BILIRUBIN;0.3 ;(0.0-1.2 mg/dL);;Final Result ;01/31/2021 18:35:00COMPREHENSIVE PANEL;TOTAL PROTEIN;7.5 ;(6.4-8.2 gm/dL);;Final Result ;01/31/2021 18:35:00COMPREHENSIVE PANEL;ALBUMIN;4.0 ;(3.4-4.8 gm/dL);;Final Result ;01/31/2021 18:35:00COMPREHENSIVE PANEL;ALK PHOS;148 ;(40-150 U/L);;Final Result ;01/31/2021 18:35:00COMPREHENSIVE PANEL;ALT(SGPT);13 ;(0-55 U/L);;Final Result ;01/31/2021 18:35:00COMPREHENSIVE PANEL;AST (SGOT);16 ;(5-37 U/L);;Final Result ;01/31/2021 18:35:00MAGNESIUM;MAGNESIUM;2.1 ;(1.7-2.6 mg/dL);;Final Result ;01/31/2021 18:35:00PT/INR;PROTIME;11.7 ;(9.4-12.4 sec);;Final Result ;01/31/2021 18:35:00PT/INR;INR;1.1 ;;;Final Result ;01/31/2021 18:35:00PTT;PTT;30.2 ;(25.6-36.4 sec);;Final Result ;01/31/2021 18:35:00TROPONIN I;TROPONIN I;0.04 ;(0.00-0.04 ng/mL);;Final Result ;01/31/2021 18:35:00Xray results: 01/31/2021 6:20 PMUltrasound results: 01/31/2021 7:18 PMEKG/Rhythm Strip InterpretationEKG: Interpreted by Dr. Jiang EKG rate: 75Reason for EKG: Chest pain EKG read by: Dr. Downs EKG interpretation: NSR; normal intervals; normal axis; normal QRS; normal ST/TEKG comments: Compared with 06/03/2019. 7:34 PM.Progress Time 1: 1800 Progress comments 1: Patient seen and evaluated.Progress time 2: 2100 Progress comments 2: EKG without any ischemic change. Chest x-ray is unremarkable. No leukocytosis noted on laboratory evaluation. Patient is mildly anemic with an H&H of 11.2 and 34.2. Labs otherwise are unremarkable. Ultrasound of the left upper extremity is negative for DVT. Given patient's symptoms, CTA was ordered and pending. Repeat troponin is pending. Patient's blood pressure has improved with resting in the department. She is resting comfortably at this time. Care signed out to ED attending, Dr. Downs.Diagnosis: Acute left arm pain Diagnosis level 3Disposition time: 2099 Discharge condition: StableDischarge plan: Care signed out to Dr. Downs. Care transferred to Anusha Downs Patient did not require critical care timeMidlevel signature: [facility] signature date: 01/31/2021 21:04Attending Physician Attestation: I have reviewed the midlevel documentation, agree with the documentation, medical decision making and treatment plan as outlined by the [facility]Phys[facility] signature: LINDSEY DOWNS [facility] signature date: 02/04/2021 20:55 Name Value Range Interpretation Code Description Data Beatrice rce(s) Supporting Document(s) ID Date Data Source [id number] 01/31/2021 10:07:00 PM EDT [facility] Name Value Range Interpretation Code Description Data [facility] Supporting Document(s) TROPONIN I 0.03 ng/mL 0.00-0.04 [facility] TROPONIN INTERPRETATION 0.00 - 0.04 ng/ml Normal 0.05 - 0.29 ng/ml Burns Zone, Uncertain for AMIGreater than 0.30 ng/ml Suggestive of AMI ID Date Data Source [id number] 01/31/2021 09:42:30 PM EDT [facility] Chest pain, shortness of breath, rule ou t PE01/31/2021 8:28 PMCT ANGIO CHESTCLINICAL INFORMATION: Chest pain, shortness of breath, rule out PE -- CHESTPAIN, UNSPECIFIED chest tightness, arm pain after giving blood.COMPARISON: Chest x-ray 01/31/2021 1817 hours.PROCEDURE: CT angiographic technique was performed of the pulmonary arteries.Multiplanar reconstructions and MIP reconstructions were reviewed. Automatedexposure control, adjustment of the mA and/or kV according to patient size,and/or iterative reconstruction techniques were utilized for radiation doseoptimization. Amount and type of contrast that was injected and/or discarded isrecorded in the electronic medical record.FINDINGS:Neck Base: Unremarkable.Lungs: 0.3 cm pulmonary nodule of the upper right lower lobe, series 401 [id number]. 0.4 cm pulmonary nodule of the left upper lobe, series 401 image 63.Pleura: Unremarkable.Great Vessels and Thoracic Aorta: Unremarkable.Pulmonary Arteries: No evidence of central pulmonary embolism, however timingof imaging resulted in suboptimal opacification of the pulmonary arteries.Heart/Pericardium: Ill-defined soft tissue attenuation in the anteriormediastinum and aorticopulmonary window, for example series 401 image 108.Moderate atherosclerosis of the coronary vasculature.Lymph Nodes: No enlarged nodes by CT size criteria (greater than 1 cm).Upper Abdomen: Status post gastric bypass surgery. Cholelithiasis. Small hiatalhernia. 1.3 cm left adrenal nodule, with Hounsfield units of 19.Musculoskeletal/Soft Tissues: 1.1 cm ovoid soft tissue density lesion in theleft breast, series 401 image 116. 1.6 cm ovoid soft tissue density lesion withcoarse internal calcifications in the left breast, series 401 image 142.Moderate degenerative changes of the visualized spine.IMPRESSION:1. No evidence for large or central pulmonary embolus, however timing ofimaging resulted in suboptimal opacification of the pulmonary arteries.2. Ill-defined soft tissue attenuation in the anterior mediastinum andaorticopulmonary window, these likely represent multiple small lymph nodes,however fat-containing mediastinal mass cannot be excluded. Recommend follow-upwith chest MRI for further evaluation.3. 1.1 cm ovoid soft tissue density lesion in the left breast. Recommendmammographic and/or sonographic follow-up.4. 1.3 cm left adrenal nodule. Recommend follow-up with MRI versus multiphasicCT.5. Cholelithiasis and small hiatal hernia.END OF [facility]ION[facility]. Allresults are available to [facility] and [facility] provider portalusers. [facility] DICOM images are available to the[facility] provider portal users only. [facility] DICOMimages are not available to the [facility] provider portal users. There isno current [facility] cross-IO functionality allowing images to be available throughthe IO to [facility] connectivity.Electronically signed By: Monalisa Marie By: MONALISA HOROWITZate: 01/31/2021 21:39 Name Value Range Interpretation Code Description Data Beatrice rce(s) Supporting Document(s) ID Date Data Source [id number] 01/31/2021 07:15:00 PM [facility]T [facility] Name Value Range Interpretation Code Description Data Beatrice rce(s) Supporting Document(s) B-SWITCHBOARD INSPECTOR 25 pg/mL 0-100 [facility] ID Date Data Source [id number] 01/31/2021 07:15:00 PM EDT [facility] Name Value Range Interpretation Code Description Data Beatrice rce(s) Supporting Document(s) TROPONIN I 0.04 ng/mL 0.00-0.04 [facility] TROPONIN INTERPRETATION 0.00 - 0.04 ng/ml Normal 0.05 - 0.29 ng/ml Burns Zone, Uncertain for AMIGreater than 0.30 ng/ml Suggestive of AMI ID Date Data Source [id number] 01/31/2021 07:13:00 PM EDT [facility] Name Value Range Interpretation Code Description Data Beatrice rce(s) Supporting Document(s) MAGNESIUM 2.1 mg/dL 1.7-2.6 [facility] ID Date Data Source [id number] 01/31/2021 07:13:00 PM EDT [facility] Name Value Range Interpretation Code Description Data Beatrice rce(s) Supporting Document(s) CK 100 U/L 21-215 [facility] ID Date Data Source [id number] 01/31/2021 07:13:00 PM EDT [facility] Name Value Range Interpretation Code Description Data Beatrice rce(s) Supporting Document(s) SODIUM 141 mmol/L 136-145 [facility] POTASSIUM 3.5 mmol/L 3.5-5.2 [facility] CHLORIDE 108 mmol/L 100-108 [facility] CO2 22 mmol/L 21-32 [facility] GLUCOSE 121 mg/dL 70-100 H [facility] BUN 14 mg/dL 7-21 [facility] CREATININE 1.2 mg/dL 0.6-1.3 [facility] Normal Kidney Function or Mild Disease - GFR >OR= 60Chronic Kidney Disease - GFR 15-59Renal Failure - GFR < 15GFR not calculated on patients under 18 years of age. CALCIUM 9.3 mg/dL 8.5-10.8 [facility] GFR 44 [facility] T BILI 0.3 mg/dL 0.0-1.2 [facility] T PROTEIN 7.5 gm/dL 6.4-8.2 [facility] ALBUMIN 4.0 gm/dL 3.4-4.8 [facility] ALK PHOS 148 U/L 40-150 [facility] ALT (SGPT) 13 U/L 0-55 [facility] AST (SGOT) 16 U/L 5-37 [facility] ID Date Data Source [id number] 01/31/2021 07:06:00 PM EDT [facility] Name Value Range Interpretation Code Description Data Beatrice rce(s) Supporting Document(s) PTT 30.2 sec 25.6-36.4 [facility] ID Date Data Source [id number] 01/31/2021 07:04:00 PM EDT [facility] Name Value Range Interpretation Code Description Data Beatrice rce(s) Supporting Document(s) PROTIME 11.7 sec 9.4-12.4 [facility] INR 1.1 [facility] INR INTERPERTATION 2.0 -3.0 THERAPEUTIC MONITORING2.5-3.5 HEART VALVE REPLACEMENT ID Date Data Source [id number] 01/31/2021 07:01:00 PM EDT [facility] CBC W/DIFF STAT Name Value Range Interpretation Code Description Data Beatrice rce(s) Supporting Document(s) WBC 8.2 K/uL 4.8-10.8 [facility] RBC 4.85 M/uL 4.20-5.40 [facility] HEMOGLOBIN 11.2 gm/dL 12.0-16.0 L [facility] HEMATOCRIT 34.2 % 36.0-48.0 L [facility] MCV 70.6 fL 80.0-100.0 L [facility] MCHC 32.6 % 30.0-36.5 [facility] MCH 23.0 pg 27.0-34.0 L [facility] RDW 15.6 % 11.0-15.0 H [facility] PLATELET 283 K/uL 130-450 [facility] MPV 9.6 fL 6.0-12.0 [facility] NE% 62 % 37-80 [facility] LY% 30 % 10-50 [facility] MO% 6 % 0-12 [facility] Eosinophils [#/volume] in Blood by Automated count 1 % <=8 [facility] BA% 1 % <=3 [facility] NE# 5.0 K/uL 1.8-8.6 [facility] LYMPH# 2.5 K/uL 0.5-5.0 [facility] MONO# 0.5 K/uL 0.0-1.3 [facility] EOS# 0.1 K/uL 0.0-0.9 [facility] BASO# 0.1 K/ul 0.0-0.3 [facility] ID Date Data Source [id number] 01/31/2021 07:50:55 PM EDT [facility] Left [facility] pain, rule out DVT01/31/2021 7:1 8 PMLEFT UPPER EXTREMITY VENOUS ULTRASOUNDCLINICAL INFORMATION: Left arm pain, rule out DVT -- PAIN IN LEFT ARMCOMPARISON: None.TECHNIQUE: Sonographic evaluation of the left upper extremity was performedusing grayscale, spectral, and color Doppler ultrasound.FINDINGS:Deep Veins:Left Internal Jugular Vein: Patent and compressible with normal waveforms.Left Brachiocephalic Vein: Visualized aspects normal.Left Subclavian Vein: Normal.Left Axillary Vein: Normal.Left Brachial Veins: Normal.Superficial Veins:Left Basilic Vein: Normal.Left Cephalic Vein: Normal.Evaluation of the contralateral internal jugular and subclavian vein waveformswere performed per protocol and are normal.IMPRESSION:No evidence of venous thrombosis in the left upper extremity.E ND OF IMPRESSIONI have personally reviewed the images and the Resident's/Fellow'sinterpretation and agree with or edited the findings.[facility] provides those same results to [facility]. Allresults are available to [facility] and [facility] provider portalusers. [facility] DICOM images are available to [facility] users only. [facility] DICOMimages are not available to the [facility] provider portal users. There isno current [facility] functionality allowing images to be available throughthe [facility] to [facility] connectivity.Interpreted By: Rudolph Albright MDElectronically signed By: Vicente Goodson M.D.Read By: VICENTE GOODSONDate: 01/31/2021 19:47 Name Value Range Interpretation Code Description Data Beatrice rce(s) Supporting Document(s) ID Date Data Source [id number] 01/31/2021 08:01:56 PM EDT [facility] CHEST PORTABLE01/31/2021 6:20 PMCHEST X-R AYCLINICAL INFORMATION: CHEST PORTABLE -- CHEST PAIN, UNSPECIFIEDCOMPARISON: None.PROCEDURE: A single frontal projection of the chest was obtained.FINDINGS:Tubes and Catheters: None.Central Airways: Normal.Lungs/Pleura/Pleural space: Normal.Heart and Mediastinum: Normal.Additional Findings: No acute or aggressive osseous changes noted.IMPRESSION:No acute cardiopulmonary disease.END OF IMPRESSIONI have personally reviewed the images and the Resident's/Fellow'sinterpretation and agree with or edited the findings.[facility] submits Radiology re sults to [facility] and[facility] then provides those same results to [facility]. Allresults are available to [facility] and [facility] provider portalusers. [facility] DICOM images are available to [facility] users only. [facility] DICOMimages are not available to the [facility] provider portal users. There isno current [facility] functionality allowing images to be available throughthe [facility] to [facility] connectivity.Interpreted By: Zoila Marcos MDElectronically signed By: Jossie Muñoz M.D., PHDRead By: JOSSIE MUÑOZDate: 01/31/2021 19:58 Name Value Range Interpretation Code Description Data Beatrice rce(s) Supporting Document(s) ID Date Data Source [id number] 12/28/2020 09:01:00 AM EDT [facility] ([facility]) Name Value Range Interpretation Code Description Data Beatrice rce(s) Supporting Document(s) Ferritin [Mass/volume] in Serum or Plasma 5 ng/mL 8-252 [facility] ID Date Data Source [id number] 12/28/2020 09:00:00 AM EDT [facility] Name Value Range Interpretation Code Description Data Beatrice rce(s) Supporting Document(s) Calcidiol [Mass/volume] in Serum or Plasma 33.8 ng/mL 24.0-80.0 [facility] This test was performed using [employer] I P Vitamin D immunoassay kit. Values obtained with different assay methods should not be used interchangeably. ID Date Data Source [id number] [facility] Name Value Range Interpretation Code Description Data Beatrice rce(s) Supporting Document(s) Thyrotropin [Units/volume] in Serum or Plasma by Detec tion limit <= 0.05 mIU/L 3.21 uIU/mL 0.36-3.74 [facility] ID Date Data Source [id number] 12/28[facility]2020 [facility]:00[facility] Name Value Range Interpretation Code Description Data Beatrice rce(s) Supporting Document(s) Cholesterol [Mass/volume] in Serum or Plasma 227 mg/dL 131-200 [facility]) Triglyceride [Mass/volume] in Serum or Plasma 191 mg/dL 30-150 [facility] ([facility]) Cholesterol in HDL [Mass/volume] in Serum or Plasma 53 mg/dL 35-60 [facility] ([facility]) Cholesterol in LDL [Mass/volume] in Serum or Plasma by calcu lation 136 CALC 50-159 [facility] ID Date Data Source [id number] 12/28/2020 09:00:00 AM EDT [facility] Name Value Range Interpretation Code Description Data Beatrice rce(s) Supporting Document(s) Glucose [Mass/volume] in Serum or Plasma 101 mg/dL 74-99 [facility] ([facility]) 100-125 mg/dL PRE-DIABETES/FASTING >126 mg/dL DIABETES/FASTING Urea nitrogen [Mass/volume] in Serum or Plasma 17 mg/dL 7-18 [facility] ([facility]) Creatinine 0.9 mg/dL 0.6-1.3 [facility] ([facility]) Chloride [Moles/volume] in Serum or Plasma 105 meq/L 98-107 [facility] ([facility]) Potassium [Moles/volume] in Serum or Plasma 3.8 meq/L 3.5-5.1 [facility] ([facility]) Sodium [Moles/volume] in Serum or Plasma 143 meq/L 136-145 [facility] ([facility]) Alkaline phosphatase isoenzyme [Units/volume] in Serum or Pl asma 154 mg/dL 46-116 [facility] ([facility]) NOTE: RESULT VERIFIED. Calcium [Mass/volume] in Serum or Plasma 8.9 mg/dL 8.5-10.1 [facility] ([facility]) Carbon dioxide, total [Moles/volume] in Serum or Plasma 33 meq/L 21 -32 [facility] ([facility]) Alanine aminotransferase [Enzymatic activity/volume] in Seru m or Plasma 22 U/L 12-78 [facility] ([facility]) Total Bilirubin 0.3 mg/dL 0.2-1.0 [facility] ([facility]) Albumin [Mass/volume] in Serum or Plasma 3.3 g/dL 3.4-5.0 [facility] ([facility]) Aspartate aminotransferase [Enzymatic activity/volume] in Serum or Plasma 14 U/L 15-37 [facility] ([facility] ) Proteinase 3 Ab [Units/volume] in Serum 6.6 g/dL 6.4-8.2 [facility] ([facility]) A/G Ratio 1.00 CALC 1.00-1.90 [facility]) Glomerular filtration rate/1.73 sq M pre dicted among blacks [Volume Rate/Area] in Serum or Plasma by Creatinine-based formula (MDRD) Laboratory test result [facility]) <content>CHRONIC KIDNEY DISEASE STAGING PER NKF</content>
<content></content>
<content>STAGE I & II GFR >= 60 NORMAL TO MILDLY DECREASED</content>
<content>STAGE III GFR 30-59 MODERATELY DECREASED</content>
<content>STAGE IV GFR 15-29 SEVERELY DECREASED</content>
<content>STAGE V GFR <15 VERY LITTLE GFR LEFT</content>
<content>ESRD GFR <15 ON DESKTOP SPECIALIST</content>
<content></content> Glomerular filtration rate/1.73 sq M pre dicted among non-blacks [Volume Rate/Area] in Serum or Plasma by Creatinine-based formula (MDRD) Laboratory test result [facility] ID Date Data Source [id number] 12/28/2020 09:00:00 AM EDT [facility] Name Value Range Interpretation Code Description Data Beatrice rce(s) Supporting Document(s) Leukocytes [#/volume] in Blood by Automated count 6.0 x10*3/UL 4.1-10 .9 [facility] NOTE: CBC VERIFIED MCV 68.1 fL 80.0-97.0 [facility] ([facility]) Hemoglobin [Mass/volume] in Blood 10.9 g/dL 12.0-18.0 [facility] Hematocrit [Volume Fraction] of Blood by Automated count 33.8 % 3 7.0-51.0 [facility] Erythrocytes [#/volume] in Blood by Automated count 4.96 x10*6/UL 4.2 0-6.30 [facility] MCH 21.9 pg 26.0-32.0 [facility] Erythrocyte distribution width [Ratio] by Automated count 15.3 % 11.6-13.7 [facility] MCHC 32.1 g/dL 31.0-38.0 [facility] ([facility]) Platelets [#/volume] in Blood by Automated count 267 x10*3/UL 140-440 [facility] Lymph % 34.5 % 10.0-58.5 [facility] MPV 8.5 FL 7.8-11.0 [facility] Lymph # 2.0 x10*3/UL 0.6-4.1 [facility] ([facility]) Mid % 7.3 % 1.7-9.3 [facility] Neut % 58.2 % 37.0-92.0 [facility] Neut # 3.5 x10*3/UL 2.0-7.8 [facility] ([facility]) Mid # 0.5 x10*3/UL 0.1-0.6 [facility] ([facility]) ID Date Data Source [id number] 08/03/2020 08:48:00 AM EDT [facility] ([facility]) Name Value Range Interpretation Code Description Data Beatrice rce(s) Supporting Document(s) PDFReport Laboratory test result [facility] ([facility]) FVC-Pred 3.21 L [facility] ([facility]) FVC-Pre 3.44 L [facility] ([facility]) FVC-LLN 2.54 L [facility] ([facility]) FVC-%Pred-Pre 107 L [facility] ([facility]) Fev1-Pred 2.49 L [facility] ([facility]) Fev1-Pre 2.72 L [facility] ([facility]) Fev1-%Pred-Pre 109 L [facility] ([facility]) Fev1-LLN 1.92 L [facility] ([facility]) Fev6-Pred 3.10 L [facility] ([facility]) Fev6-%Pred-Pre 110 L [facility] ([facility]) Fev6-Pre 3.44 L [facility] ([facility]) Fev6-LLN 2.44 L [facility] ([facility]) Mqj0pbw-Jhqs 78 % [facility] ([facility]) Chk6fqz-Jvo 79 % [facility] ([facility]) Jyp9gwp-%Pred-Pre 101 % [facility] ([facility]) Xle6gyq-Pcof 97 % [facility] ([facility]) Yvj5hfl-UDN 68 % [facility] ([facility]) Zio6rit-Wwo 100 % [facility] ([facility]) Xln5iwc-%Pred-Pre 103 % [facility] ([facility]) FEFMax-Pre 5.44 L/E/sec [facility] ([facility]) FEFMax-Pred 6.19 L/E/sec [facility] ([facility]) FEFMax-%Pred-Pre 87 L/E/sec [facility] ([facility]) FEFMax-LLN 4.53 L/E/sec [facility] ([facility]) [id number]-Ydh 2.57 L/E/sec [facility] ([facility]) Dck3172-Bnsv 2.34 L/E/sec [facility] ([facility]) Equ2207-%Pred-Pre 110 L/E/sec [facility] ([facility]) Aqf3173-UCH 1.13 L/E/sec [facility] ([facility]) Ikd8mni5-Vxko 81 % [facility] ([facility]) ExpTime-Pre 4.86 sec [facility] ([facility]) Gio5hjc2-Wli 79 % [facility] ([facility]) Ssl2ngb2-YXW 72 % [facility] ([facility]) Dzq5mei9-%Pred-Pre 97 % [facility] Hospital) ID Date Data Source [id number] 06/23/2020 01:44:00 PM EST [facility] C[facility] STRESS TEST LEXISCAN 1 DAYCLINICAL HISTORY: REGADENOSON INJECTIONINDICATION FOR STUDY: Chest pain, shortness of breath, strong family history of CAD.COMPARISON: None.TECHNIQUE: See below.FINDINGS: After injecting 0.4 mg of regadenoson, the patient was closely monitored with continuous ECG, heart rate, symptoms and blood pressure monitoring.The patient had shortness of breath during the regadenoson stress test.At baseline, the patient's heart rate was 53 beats per minute and blood pressure was 140/80 mmHg.During the regadenoson stress test, the patient's maximum heart rate was 75 beats per minute and maximum BP was 114/70 mmHg.At baseline, the patient's EKG showed normal sinus rhythm with the baseline ST-T changes, a rate of 53 beats per minute with 75 beats per minute. During the regadenoson stress test, the patient did not have any acute ST T-changes suggestive of ischemia.The patient did not have any complex bradyarrhythmias or pauses during the regadenoson stress test.These findings are to be correlated with technetium scan.CONCLUSION1. Uneventful regadenoson stress test.NUCLEAR REGADENOSON TECHNETIUMUtilizing same day protocol with regadenoson , gated SPECT imaging was done 45 minutes after injecting 11.0 mCi of intravenous technetium sestamibi at rest, 33.0 mCi technetium sestamibi after regadenoson infusion. Left ventricular size was normal with normal left ventricular wall motion. Normal wall thickening. Post stress ejection fraction was 66%. Small area, mild intensity, predominantly fixed perfusion defect in the basal to mid and apical anterior wall with the good wall motion consistent with the breast attenuation. Otherwise, perfusion of anterior wall, septum, lateral wall, inferior wall, and the apex were normal, and there was no ischemia. TID 1.03. SDS = 0.On the raw image, there is no cardiac motion or extracardiac uptake.Image quality was good.IMPRESSION: 1. Normal regadenoson technetium perfusion scan, no ischemia. Predominantly, there is a fixed perfusion defect in the basal to mid and apical anterior wall with the good wall motion consistent with the breast tissue attenuation.2. Normal left ventricular function; post stress ejection fraction 66%.BRENDON Alvarado MD, FACC, STEAFNY, FASOK13:[id number] PMTranscribed by: GISELL on 06/24/2020 10:37 AMCDS G codes: , , , , ,CDS Modifier: , , , , ,cc: Name Value Range Interpretation Code Description Data Beatrice rce(s) Supporting Document(s) ID Date Data Source [id number] 06/04/2020 01:12:01 PM EST [facility] Name Value Range Interpretation Code Description Data Beatrice rce(s) Supporting Document(s) ED Provider Note [facility] DOWSYf4gNrIWAaJh44/UUKlpRETuj3HwVEtjEQp6OZfdCUSsK5BaDHO2pN5dUTI6RWqYDvQbXjHwRPZ3 lbm [file] XB0hNKq+Hw8Oa6GlclU9peJjMKv0LCJ4KQ6YJUCKO6TMLf== ID Date Data Source [id number] 05/31/2020 04:57:07 PM [facility] Name Value Range Interpretation Code Description Data Beatrice rce(s) Supporting Document(s) Progress Note [facility] LWSNKm8eZsHXJtDl27/KGBspRUMlf5MhELhgFOi5QCmaIDIpC9HsVLQ0jM4yMLE0SSkAVbCmIxVmVGSk lbm [file] o+Ur1Xr2LuouY6xlRhADw7PON4XUjoROKONr7B ID Date Data Source [id number] 05/31/2020 03:27:36 PM EST [facility] Name Value Range Interpretation Code Description Data Beatrice rce(s) Supporting Document(s) Discharge Summary [facility] OOHWDn6pLzTLDlQl08/JRGxqNBAan5AxZCwuELf4MTymWOXnI5QmLTK1mG9uSAN3ATmATaZnVnXrSXSp lbm [file] GHGgOlQ1Q5XnDqW4IlSmZM2WDy5CQyV5IHP6qBPwOu5AVyD6NLzCGnSgQB2KPVt= ID Date Data Source [id number] 05/31/2020 11:50:55 AM [facility] Name Value Range Interpretation Code Description Data Beatrice rce(s) Supporting Document(s) Glucose [Mass/volume] in Capillary blood by Glucometer 105 mg/dL 70- 140 [facility] ID Date Data Source [id number] 05/31/2020 08:21:39 AM [facility] Value Range Interpretation Code Description Data Beatrice rce(s) Supporting Document(s) Glucose [Mass/volume] in Capillary blood by Glucometer 99 mg/dL 70- 140 [facility] ID Date Data Source [id number] 05/30/2020 09:11:01 PM [facility] Value Range Interpretation Code Description Data Beatrice rce(s) Supporting Document(s) Glucose [Mass/volume] in Capillary blood by Glucometer 92 mg/dL 70- 140 [facility] ID Date Data Source [id number] 05/30/2020 05:02:13 PM [facility] Name Value Range Interpretation Code Description Data Beatrice rce(s) Supporting Document(s) Glucose [Mass/volume] in Capillary blood by Glucometer 92 mg/dL 70- 140 [facility] ID Date Data Source [id number] 05/30/2020 01:23:36 PM [facility] US DOPPLER ABDOMEN PELVIS ORGANS COMPLET E [id number] RESULTInterpreted by:Jossie Salazar MDPROCEDURE INFORMATION: Exam: US Duplex Artery and Vein of the Abdominal and/or Reproductive Organs, Complete Exam date and time: 05/30/2020 12:01 PM Age: 60 years old Clinical indication: Shortness of breath; Abdominal or pelvic symptoms: Hypertension; Additional info: Assess for renal artery stenosis, history of resistant hypertension TECHNIQUE: Imaging protocol: Real- time duplex ultrasound scan of the arterial and venous flow of the abdominal and/or reproductive organs with B-mode, color Doppler flow and spectral waveform analysis with image documentation. Exam focused on the region of clinical concern. Complete exam. Duplex images required to evaluate vascular conditions. COMPARISON: No relevant prior studies available. FINDINGS: Aorta: The aorta is normal in caliber. The peak systolic velocity of the aorta is 96.6 cm/s. Right kidney: The right kidney measures 10.4 x 4.5 x 5.5 cm. The right renal cortex measures 1.27 cm. There is no evidence of hydronephrosis, mass lesion or obstructing calcifications. Echogenicity of the right renal parenchyma is normal. Doppler examination demonstrates the RI values of the right renal arteries ranging from 0.57-0.62. The peak systolic velocity of the right renal artery is 91.1 cm/s. The RAR is 0.94. Left kidney: The left kidney measures 11.37 x 5.80 by 4.48 cm. The left renal cortex measures 1.39 cm. There is mild left hydronephrosis with mild to moderate dilatation of the left renal pelvis.. No mass lesion or visualized obstructing calcification. Echogenicity of the left renal parenchyma is normal. Peak systolic velocity of the left renal artery is 146.8 cm/s. RAR is 1.51. Doppler examination demonstrates RI values of the left renal arteries ranging from 0.54-0.65. IMPRESSION: 1. No evidence of renal arterial stenosis on either side.2. Mild left hydronephrosis. THIS DOCUMENT HAS BEEN ELECTRONICALLY SIGNED BY JOSSIE SALAZAR MDThis document has been electronica lly signed by Jossie Salazar MD on 05/30/2020 1:23 PM Name Value Range Interpretation Code Description Data Beatrice rce(s) Supporting Document(s) ID Date Data Source [id number] 06/01/2020 02:33:21 PM [facility] Name Value Range Interpretation Code Description Data [facility] rce(s) Supporting Document(s) Kristian Jefferson virus capsid IgG Ab [Units/volume] in Ser um by Immunoassay 0.25 {ISR} <0.91 [facility] NegativeNo detectable IgG antibody toEBV VCA (P-18) by the MAEGAN test.(NOTE)The following results were obtained with the Nu-B-2B EBV VCAIgG MAEGAN. Values obtained with different methods may not be usedinterchangeably. The magnitude of the reported IgG level cannot becorrelated to an endpoint titer. Kristian Jefferson virus nuclear IgG Ab [Units/volume] in Se rum by Immunoassay 0.34 {ISR} <0.91 [facility] NegativeNo detectable IgG antibody to EB NA1by the MAEGAN test.(NOTE)The following results were obtained with the Nu-B-2B EBNA-1IgG MAEGAN. Values obtained with different methods may not be usedinterchangeably. The magnitude of the reported IgG level cannot becorrelated to an endpoint titer. Kristian Jefferson virus capsid IgM Ab [Units/volume] in Ser um by Immunoassay 0.09 {ISR} <0.91 [facility] NegativeNo significant level of VCA IgM antibody.(NOTE)The following results were obtained with the Nu-B-2B EBV VCAIgM MAEGAN. Values obtained with different methods may not be usedinterchangeably. The magnitude of the reported IgM level cannot be correlated to an endpoint titer. ID Date Data Source [id number] 06/07/2020 01:05:49 PM [facility] Value Range Interpretation Code Description Data Beatrice rce(s) Supporting Document(s) Thiamine [Moles/volume] in Blood 103.4 nmol/L 66.5-200.0 [facility] (NOTE)This test was developed and its pe rformance characteristicsdetermined by [employer]. It has not been cleared or approvedby the Food and Drug Administration.Performed At: [address] [id number] Lamas MD Ph:[phone] ID Date Data Source [id number] 05/30/2020 12:22:19 PM [facility] Value Range Interpretation Code Description Data Beatrice rce(s) Supporting Document(s) Folate [Mass/volume] in Serum or Plasma 18.03 ng/mL >4.77 [facility] ID Date Data Source [id number] 05/30/2020 12:22:19 PM [facility] Value Range Interpretation Code Description Data Beatrice rce(s) Supporting Document(s) Calcidiol [Mass/volume] in Serum or Plasma 14 ng/mL >30 L [facility] ID Date Data Source [id number] 05/30/2020 12:21:09 PM EST [facility] Name Value Range Interpretation Code Description Data Beatrice rce(s) Supporting Document(s) Cobalamin (Vitamin B12) [Mass/volume] in Serum or Plasma 396 pg/ml 2 11-946 [facility] ID Date Data Source [id number] 05/30/2020 09:27:24 AM [facility] Name Value Range Interpretation Code Description Data Beatrice rce(s) Supporting Document(s) Progress Note [facility] DLQHKi9bPzFESkRt61/INZjvPMNef1JuIMzaNKj1EWaqNANzU7AmXPG3yP2qBMJ3BGtMHkGtGbGvRHK3 lbm [file] AgICAgICAgICAgICAgICAgICAgICAgICAgICAgICAg URAaPOTbGMLyXZDsEOWjRJRhHBIsGOCfXBHpLAZtEICjIVVfVJDdUVSiQGUnQEHvVDFaEQZtWV4LFROj ICAgICAgICAgICAgICAgICAgICAgICAgICAgICAgICAgICAgICAgICAgICAgICAgICAgICAgICAgICAg ICAgICAgICAgICAgICAgICAgICAgICAgICAgICAgIC FnXXIwIW8YIVWrXYOyHKKlROKoPHStRYQlGNBcXUDiMWBmIXPoKSGzIQLfCGEvMCRnKTDjBTDuXISzTP SqFIIyCUAnIGWvINJbSZGuPXQcTFSuDNYnUZUjZUPfYULlZNWgJAOtWKVgGLEvRS0DRCYzQAIqYKSjBH AgICAgICAgICAgICAgICAgICAgICAgICAgICAgICAg FUXrFLLoBOYiWWZpMKRoRORcWWVsFIIzJOZmWDQmXZTlOZUfDZCuEXBvHTQfZCEdUYEqDUTeKRSkTI5A ICAgICAgICAgICAgICAgICAgICAgICAgICAgICAgICAgICAgICAgICAgICAgICAgICAgICAgICAgICAg ICAgICAgICAgICAgICAgICAgICAgICAgICAgICAgIC CsTCNzCUFgXR5AXXThASRsOFRkJPRwMTGhSJMkIXSdLLZkFNXuJDYaGVRvWFIpWTOpLXKaVUBpYIWrHG OuQWYjJVAeFCYmZGPhIQMqKSPrEZXnBFTvMBWnMSOwTMAmWZJrQODfTDObKKUlJFEtFE9QOVHbVTBaSR AgICAgICAgICAgICAgICAgICAgICAgICAgICAgICAg ICAgICAgICAgICAgICAgICAgICAgICAgICAgICAgICAgICAgICAgICAgICAgICAgICAgICAgICAgICAg NQ1XSJDnWGAdVIXhVIRtMMYlXSApJHHxYPCoORHhNWYpATUzTBBzFBMhZTVmWFNwAPMkKKQbUURmWKIg ICAgICAgICAgICAgICAgICAgICAgICAgICAgICAgIC RnNCUtKRBeKDYzHI6DOCYxNTEcALEcUQSjUEPuPDUzGASuVCRlSOAiPODfDNDrDADoBLLmWCJrBDBrGP KxBHNeJOPePXCmAXOdNHPmAWLhVJLsSWFuQRJuHZVxEJElAZRwHJTeBOOaNOXoQLAjXYFfQP2CHGQoMI AgICAgICAgICAgICAgICAgICAgICAgICAgICAgICAg ICAgICAgICAgICAgICAgICAgICAgICAgICAgICAgICAgICAgICAgICAgICAgICAgICAgICAgICAgICAg JDIyXJ1XZO26rFWre6H9PUMvTI4pckz/Yk0WYBbgyoUtnEEuOP5KEtLjTP4lvj7TNsOzJA9muf7FRIgY ScLaU3N6xHRqBDUiQLHUWqYhJ19fRVniXh84PFipKA NdEcNqOIp3Wn2DKnLvR2sbBZYhQqU9CPUpWkE7TGVhJmDoNYejEP7Kw6MnhKOjZWp+Vq0BTY5el0WbEA koRfXzSH6qst9OEPxVQcPmH4LvcbB3IEU0BCCvIr8WGKCjJRIlgRDdHaFnFLTRPsMtH1XtdP60WQRWTs 4+ILihccBnWclQSfT4NQRcr3IlGYf2VA7REEKiZRf9 rCNsDVGtK1Ndj6HtGd14RXWsMeqrNBTyrWAbkUcxJNP4uGUbWCCDEAI6YCMtBU9nOBUbQRO3EvC5IRWM EA0ZCSHuPMCiwNPaQYVzSADDCB5FHTguQZO5MRMlnqGsaXJcXJckDJ2MSLPlmeWcXTXgBDHPEBa+Pg0K PG2jd9NiIWdnFZXaSY8oqd8VECpYTtFrB4T9fFGkV0 R1KVvoXx6OUMLnJIItSTCyRSYXMNzvTP9IBW8bipF4EN2NeSKqOWFtJYNnzVBhDQv9G72waLDxGPbhOG 0KICA+Lashonda+Ux9WFUAjZYVyEWEsXuDaCJSSZnFlK5GbM6UAd2GjP7QqJV43nSfiihCcQZhgRW4KXL4rLA QnUMQQSQ6TwKHfkZ8zuhXlGlAvKCSAMwQnH03urVLp SQYgWMB4FHUgVr9BRPHrB6ClcvCkzPylarYeEDAzMGQYUL4TVCedxnVaoDIqbRnhWL07rOkcCC7OGx4R OjDiQJ5vpz8OuUOkHk2RFWYxHG5DGPXvFIXyPQHmKML0VIFcZpIrIZopUEHzMHLqYPL4OWZeCRGsAW7T EuBpOCEaNAjkVXObPETpVILvoe3XLDNjTHIvQIiqBK YrOSMdUIGqDAmaVUToYOQpNSQ8UWLoCZAcIH0LFoCqVGKyPZZmKEDuWIBaZMMpdy5JPZXvIJWhZgP5FS RiRVIhDJEfJWqmVKCbIVV4RXrsCDLpRRGpSA4ZJnEyIDUgRIHaVhSiNMSfYQPdtp4VQQOoYQTwBwUmXa DsDAKcEKPiUZodGYHlMDY0XIH4YWIyVDXjSE7FXgYf EFAwSMW0WTIsSDDjJYUkhe9KZLVlUCBlEtV7MATkCBXxIHWgYJpsDAHaTMT8HSqkSKXeTCXzFB4RWyIa BVUhQSbyJZjtWGIqPKOrrq8KGVAwLVDnQEY5QBNnPOWuLNNqPVzjNZEoAPW8IIS9KEJiDSNeWF1WTkGb GBLoRQs4BzbnOKOsGAKgph1UZOTsVXQbUOZfYcHrTF AzTGWdQZg5yeJgoTBiPPc0IW7QU5IizbDmQEzELx1Hr620BVG2APUcFg5QL2xxBx4vLWTgJDMBJx8INW i4DPcxYRQ2QGl5VqpyVFVxCPN4OYi8ZuCiULL7HVEvLrF+VFn5DAR6BPudJZEdLVE7FKSiIJSoPLRaUM EaYMfpE6DlCg0aLDAHXg7+MPpobVWjmDzrNCZMLcVaWrxuGArsZJGCDu0Z ID Date Data Source [id number] 05/30/2020 08:42:17 AM [facility] Name Value Range Interpretation Code Description Data Beatrice rce(s) Supporting Document(s) [facility] VWCEYg5xNeHSNuNcj9UhGmNhQOUmLB8koua1B6O1bRWkK2ZtuZGsb8zwO3BiK2FcOTPhBZYCDD9ZqMWc jb2 [file] zBzW2rgkT60Qkx472y8/z1Ia1m5ZNZnz6m9b43ytE7 uO0/+Krkcsjr6+r/2Gs9LpwwaU/8xDuXb/yEO7/f9OCr/UQ+3++e+UfkXbBMbL4i3tocd6kIi4TyE/ac +Vu8Bfhj/NqhGpBq0hccF+mD6Mvx40n++q+yqv3596O+u9B/F/odYm2s351+1sXPA/6rsTAfpf/qfbb7 juN9x/uB9y+rRSyxk5x3h+p53/E2/VeZd1//xtgXP4 99/KwbJ5fly58aKz2q+njwfOvdFz+WILa52R5L1vG/mnw0zcZN+kL5C+PpDykHr4t8Q751vBh/qp4F6Y K4t5ld5TE1A2QOpL50E/tJ60wdkvEs1bO7dmH17/97OYSF4VtuW+fYRjvsg48zycwVH/6jReo4Ozimwr qlWdntuSgbw7yyK9Qv2q5xb/888fdxuPV47/w75c6/ U+16J5Libo/4LmQf5JA8KtndKTo1v/uTfz7jO1ESkX+bO0DG8K05NotpFYpwlc1Csal+iu+r+X6O2r7R 2Qq7KSi8m8+hSFek3/AqFx9u57h0Ex+063566ut0H+j23JsGoqMnq8snthkj4UUmphgyeFNTtjuizWAu vu/R1347cjMMpacnQK2gF/07vf5dfe6xiDww7Grxlj 54EGqS1v5+ikXjoybmdIx3vY892u2Xip1/nxRyf5v829/Ygs2s1rZP7p7+cdE3hYJv90LxjHF/ahrsGf uD0/B9Dd/XIK/h+9pG+f9gteqSko/14HRBOuRN/1Xqwe/6d/pd/39aXG5Ko0l1yRBIZ0Ka9ij+Hve7e1 n98ISiI6kSyL245/rrZmA+mkbsBGJX10kQDvBQkVOa /5nPPVnsEq62ldoil3R/AGtvjHmHVL9J09Nf+1DRuls0j3Q+GZP9gJ2Nxn+CPS/YM/YU28s3DSUl/+Rc 1z851/AVsySIl5Zl//UeQW5Z4I9FE/uDs/RCJ08l0dkyaDjxB+d+rJ5DG7mIT/IhDSh7tO1Zxo/+0dyY j7A/OPdd/85tSEf/3fi+2B+cwFcT/qu5r//7WToK90 Km/+bpWaf9M6MKhz2L0MQ3EpfbfWM3+AmGuhyKs7QaPoNa0WIIV4bl8sKg8vfPc8+i6z4pzbrj/i3xVa UvvH/3U+w134WC5x5w124QEB/10xPU+5qk3Qee/9SOsnvXt2fOn00GknaUW/JDIuF5zjYe8QmeJ2bw/b 4mFz+nYJk5Oo09xtg3xS7hjPX1+Mp3hr9+0HDIQeb4 qqKK0n+MeJDvb5kR0EUczWExwkZWmtze5y9Unegrqegd30dOg//1vKCjFqs9McX/apleo6vzwG80h+Mb sxvT8/2P/9lmtuHjf/4BVy2hiT160zvOK4/6B1/B6NtEHw1/durhg6/Oocd/U0M0Yr27bN+g5aDsNj7s L7839FjOD183K/rnnM2y0GbvhP2piXM1a9/gROje56 vPg6/evOt+y9DxTt5p04jw5+D52uHM/+KrioQ++qroOvvo+I33i/NPvBZmDNtX84zM936lknk fgq/f42X1sld/2ROLe5+79ccCt9yRU7k4d564+QwSuMybd5uhTA7m+m+qqftlXg733s/e07PyWmFj1CM 2QvpC+hB0GWosYlv3FY+T2+2u2E15Q9XoY827/wVf1 jQ6++j7f7+Rpam07cgG5rxty4CO4O9/H6N9z23wyvW1buiV5Nh8jFW+8Mv1TxeDfM+5+ygmt/qq0oANP uvg9rtHtQpYW3S0xO2e7wgvRiDoIV7IC6hGe4D2gv/0X2mkaqB/AjBB7ONqJp8WcCGbQBS3Q/Ho33axD 4L8y+C2jYrKJ8BWx4qMZn70/eMkSX+U4v66/zhJf5b machado+4OZfvDV+/xJjwqT/aRX+Ug3K95No+/1bwkrquLr8oDAUU/nvi0PIp/qfDhsMudKT0Dw+HNEpDm8a9 +naLgmU9tpA5/m9205HcD0mWFg12dpWCG7KnyOqm594yrI//w+X86mblBwgLDr0a/+8dDSO50iMgpeEv jRZzs6KxYA6d+od0GuI+8NiC0/s+g94slcMB/+gqf/ an+DYUv/gp2n7I0NaJ/x7q698oGxhdr849S8d38+o0sU3D1v4xI+f+9G3g2rJ/qNXxxZqsu6frg/6n2+ 2NwAZ9q2w+r5np/09F/QevWckF5KdtsJlww80zz//7kxRe8NV4zMfX+iP1Jg34ud// /7aOmM81o4i/g6nInCwJmJDBf0wpYKS/9sYdVT5 r6T19Bpr3kdXicL4j7tI2JrzX+aE03466/+rx4w+yRTn1ssqXiFh1HQmboAPxY7O//hsN/5RPyTsgL/5 VPyAv/Alvaro/IOxfev/KUw1mv1YnQS4m5LT/qujysrGrzhv73kG1pbdV6+eAZ6fi+Bnnt+nMc56/zVO0YEt [file] +vU3b+8//+2Hz3/0T846w1ej19ys/fe/3AEMwrx19Yjfr577i330+v7dL97++YsPn99/2Uu5A71UUxFt OHC9Ev8FxMg4l+bzd5++//D2/vbBF9+8ffPl1//87v3f+QsMSK1rc/Edwin/71D3/+/rvfv/3P/3z77N+/ /eHf/vjtH/7+7ed//nJ5F9g3y7+7S/j+y9+9/emHN/ nZ+Nm8g/zm2wjk1ucwX/+L4+bmofucat9//7O/6IJv4fGhidMpdkL89kLmgde2+g9QWM0pDlY9f/UPAX EHoQrl6p++EJr9QA659dEc373EStS2ljGjlY/Oo255y1IoI9m/3b9+9+c/M2s65xi8+ailqwqj8p+/+P OOea79q/GcPzoO/jn0Y0zd54L9m2z9/LSwn/+K/p2J MZ0ykB6WKU/2m+9++Os/qR95417+99HZX2+5j5Pk5m1R22k0K3ipXj8j4Du0d/dvf/jhr9/9+X9/+8e/ uznqtm8Jn+59Y5E/PvvG/un9N2+//4/Xvf/hTz/8+XXbT2rJOa7O1AS/9OFn//Gku3pN24BcrelYJl1+ Tvu4fJmV5m6YeF1p/oB4m4nh9QGfjobCH/vVT9//9M Pbt//nu7/8107zPDdtP/36sw8/vVPjvDqejbf//PO//W8Dar4gos6+9/23f/zoCY+P8M++/Y/fffuXV1 u56Vy3h24/3Flb05C2w/rT95/9VXLES1rKsipf796qjV62/ixdBQFu/MN3v/v3H/6uv3pTlAHzp89xh/ dPh1nqegMos/z11ap+/8nnv/3Vu/lh9n81tOmzb/Vf kzak4zVdj6/7a9mntybzK20z5wgI//0c7ccQrbDDad/69t++e5O3P/3rGx/0nb44FDcdg+/fK3KdPZq7 01fXj5VkOjtuueAQ84/f/+Ld+5eBLwrdXt+c+kbuS467/dzfJw87sQe5e2+JP33p/wHb/EuyCmVuZHN0 zgMgoGfoqvUjWfwWACnqQSDvKwm6UD2SyAVcRVNuE0 M1SNOeiq3eTJAnEJMeqRQdOeCgQLGYZB5IwHKyIG3SKYf9UOQnAORgWfKvPYVablT6UHKiNVMsVYXkJ3 BhcmVudCAyIDAgUj4+RK6wu0XmFpKmWOSdYjr2WB9PzNEwRV5RrSDagD6rdaYzF160srFuUYZfXsocm5 FdFGeyIUXOLH6VHXO1NNZ2YYPrMz5+YO7rj3VzLyPl RNVoZlz4FL7TfIRfu9DtAO1ST5TeGNXiHRGAJTP6e0NcVLYrnvzxtklvC4TzCEX1oX0xZQO2GXXuZBqz MQZhXLFaODC4DZEcVZlkBDBiYAOeGJYfTWNfXUy7xHEzZO6MV2YkROUaKQFOCXWzexUbFr6fLLtJOZFE GlvrN7oSDdJPFBCyBjDuDlPrCH4RmMVhEUD5UEoOLJ BCCVoGCBywIuJpl4F5JLUcB0SsZCRnvtJzJBWTKCfvPitbPX3zjCzcaqzlH6MguBUwEDHKBQOyDFGaWD DpWLLsT4Ypt6E7Y0RrNKqZXAQHZHgUKQczViM3k83tveSMUHZbZXJrLG9+AH3nl0FfRd2PXTQdEH6cgk h9RK7GlJCyOK6PKNkvylOaB4dqlxPgUaRgSLRMGZ3o Z0BjkN03UOJ+RsBlJO7vjfu9rdPkLhFjJCWsCVEfZCCoSBaeEWCdNSYwHZQtUAJ8KBP1LWUqKxFyFDDs DpEnYQAiXSWvTZYbwaNKISWjLUM2ZLj4NMSnJWZnRPKjJZtjIEAtRQD6WVMdMDWnDOEoCS7xQqZjRJMs EUKvYVSqXkQ3EeEzLlFJQZQmKDTyTSUlPqEfYXCkAZ AnXIfaLMStCTFsQNv6RUOdKMIyGO5qTdHmPZQdPOZlYKPdBWHjXQIumgAAMNSxDJXsIFO6RKYbIUCgPV LaFHrvASWbLGBoXVD2EUEoWRZpPP4cNwScVZIkKXJ2ToTjVNIfBQObxySHGLOiRSXkAWN7EGUbLFMzDW FoFEhqEIVoSUApWqD3DXJbYWJiEN1ySjPxSKZgEAI0 XEEbEOXaNRZodyCUFGZmUXEwQKc1ZmEaDQOiNSMbRNkxLBQpDTVeLYtuLGHhQCHyMJ2tMwRgZRVbDZMe ZMCqVHVeWQMyvqESCHFjBUScZAN5VvInFZAeWFGsZYlzQGGwRHJhMPO6LOZnZEKhEK8aOcOyLVSuZwN2 NzEgMDAwMDAgbiAKMDAwMDAwMTYwOSAwMDAwMCBuIA toWBGxBERqUoF4VGJsGFQaTD7yMxRkAJJiFOX9XTCuWXOjLPJleoIVRPDaNUJfDBLcHGW0MNKvZGLiJE s1acKywLCwTsx7Im1NwAbuXEY9Fe3BcgPiMWOdDHYLOn4We163XNNfWREKGnd+PgpzdGFydHhyZWYKNj IjYjBBHPELN2O= ID Date Data Source [id number] 05/30/2020 08:38:45 AM EST [facility] Name Value Range Interpretation Code Description Data Beatrice e(s) Supporting Document(s) History and Physical Health system GLXEPf0cNlERZlHr07/GPYnaRVXqb5SxCKsqSTn7LUjjHJXkG6BvANU8jB8wRHF0AAkKTcOsHwNfZTL5 lbm SxQhmDEoEzEAJqYxtKIpDxPYoyZtbdcQPfBV2AsVU9HXNyV89kIPVnAWZnX2WuYSAnVei+Jo5AWDPeyD FtLB9TZinI7C6uw3uXIx++sU8YIAIwanCle0D5BRaDGu5tuY8Aoao0FGsf/SDblKVGhyvJbb1//fIYUn dVj03DdjoqJTYDowvbQcDjgTDpKu/79vhtA0to9757 X/3oYxQ5Q/H++prfyNqG0GWsm+nsiiL2Pv1pa7i+KrF+w/Mr7/CJ45LCbKyPYndhkYHrUHN+8A2odv8x 713xvz2OM9iGLv2BOHnYbFdzCSihiLIWgefObXKiSbOUWxxpfDnGTHhOSrSTQ9wgAwF9THsTFlYnAdBg McN14KprIH4z1dzHrQeUNc47TRgdSymXFpIG4QByXt ANDERSEN/OnvBfzyyvt+biYVnaxY0lUy0q8XrkIdWZAAOefyEgvnPmmfmNLVdy0JEFhyZphPHEhR/hlae8z3DR [file] xq37kprxqg2GdD03QuPLaGMI8VIiDeJmh+ovJLrIxfhUi0b7v+SWITCH[employer]ARD INSPECTOR/JZ5usOXXxtT/HsG8egmddZe0On7 [file] A54GcF03tT5zD73i6/zTGJEJIBP4lndCUiqfa/SWITCHBOARD INSPECTOR+y bFn3clU0R1lMrjplfvcfZljsVQoC/F77cA7kn7bIVLFc+XSPksSBc0PFurz2zr9ZwdpXfXMCx0yqkzfA zym6/nIMuLvN/sA1Kd5Id0/6/4Mi43XbRpvmRy6jHxBrHMVDX0r29QfL7aqH6aOScP6z40XZ42pIYsD6 V2vRf/JffFhxDPNqSjTlWlvT9JunATQrNjP56yvc+a plMFlAHR3v58fF8mrgQssRqCu/rISSspYsk3+O5oiEjLAfg6F3FPnz+dE/64D9WwmBxAziFfJ+vHm7+c D9MwMyOwyPblqZ6e+RT1w/uZn0bnXrla/Ob3DU7oM28A5+er+Jnsff0dWUCX7Ozy0uy0VqZrG9fJAclO S04179K2v+FfNOuhAET4+AST59JAjz1/cZQ+LxsRF7 c9zN81IkHJyJnZChOespwCR79u0fhSivfiAThh4oBUGiPsJB8W2m/Fo/snWRc0NxnI3Zox9OizdAqZZa /uTKTp6ZyOov0Nes5zA9nkPLfRbL5dCOxh3GewtTUj7JOhQBgY1mY7YYiMgz13gF2BvzxW/3ZRO5gmdU GcM9JEVEYuJ9sgdZWRvLnCaL44Ow9SqCiTZYLqEOux V/sK9d3kklMAwgKJo7DrFhN7m+R5ihjG5flxD0nZ9NfD1aOSUTkef6jpRuyjJjR+4BYfjRmqY9r4+s8K AR786FF8PIBGJnRtnQkTgl1pXXZr3sv5273Q4u8VAZ8rCnQ15HAIcEsieqNAQO4Qqyws33At+2hHPmQM Linda+/PO80PJ8f4S1iIuMRaU9tVkfX/JkG+Rkst1f/u [file] [id number] ID Date Data Source [id number] 05/30/2020 08:19:59 AM [facility] Name Value Range Interpretation Code Description Data Beatrice rce(s) Supporting Document(s) Glucose [Mass/volume] in Capillary blood by Glucometer 91 mg/dL 70- 140 [facility] ID Date Data Source [id number] 05/30/2020 07:38:06 AM [facility] Name Value Range Interpretation Code Description Data Beatrice rce(s) Supporting Document(s) Color of Urine [facility] Clarity of Urine [facility] Specific gravity of Urine by Refractometry automated 1.038 1.003 -1.030 H [facility] pH of Urine by Automated test strip 5.0 5.0-8.0 [facility] Protein [Mass/volume] in Urine by Automated test strip Neg [facility] Glucose [Mass/volume] in Urine by Automated test strip Neg [facility] Ketones [Mass/volume] in Urine by Automated test strip Neg [facility] Bilirubin.total [Presence] in Urine by Automated test strip Negative [facility] Hemoglobin [Presence] in Urine by Automated test strip Neg [facility] Leukocyte esterase [Presence] in Urine by Automated test strip Negative [facility] Nitrite [Presence] in Urine by Automated test strip Negati ve [facility] Leukocytes [#/area] in Urine sediment by Automated count 2 /HPF 0 -5 [facility] Erythrocytes [#/area] in Urine sediment by Automated count 0-3 [facility] Bacteria [#/area] in Urine sediment by Automated count Non e [facility] Epithelial cells.squamous [#/area] in Urine sediment by Auto mated count 1 /HPF None [facility] ID Date Data Source [id number] 05/30/2020 10:33:24 AM [facility] Name Value Range Interpretation Code Description Data Beartice rce(s) Supporting Document(s) Hemoglobin A1c/Hemoglobin.total in Blood by HPLC 6.3 % 4.0-6.0 H [facility] Glucose mean value [Mass/volume] in Blood Estimated fr om glycated hemoglobin 134 mg/dL <126 H [facility] ID Date Data Source [id number] 05/30/2020 05:50:55 AM [facility] Name Value Range Interpretation Code Description Data Beatrice rce(s) Supporting Document(s) Leukocytes [#/volume] in Blood by Automated count 8.2 10*3/uL 4-10 [facility] Erythrocytes [#/volume] in Blood by Automated count 5.19 10*6/uL 4.1- 5.3 [facility] Hemoglobin [Mass/volume] in Blood 11.2 g/dL 11.5-15.5 [facility] Hematocrit [Volume Fraction] of Blood by Automated count 35.3 % 3 6-45 L [facility] Erythrocyte mean corpuscular volume [Entitic volume] by Auto mated count 68.0 fL 80-96 [facility] Erythrocyte mean corpuscular hemoglobin [Entitic mass] by Automated count 21.7 pg 27-33 L [facility] Erythrocyte mean corpuscular hemoglobin concentration [Mass/volume] by Automated count 31.9 g/dL 32.0-36.0 [facility] Erythrocyte distribution width [Ratio] by Automated count 17.4 % 11.5-14.5 H [facility] Platelets [#/volume] in Blood by Automated count 302 10*3/uL 150-400 [facility] Differential cell count method - Blood [facility] Neutrophils/100 leukocytes in Blood by Automated count 39 % [facility] Lymphocytes/100 leukocytes in Blood by Automated count 49 % [facility] Monocytes/100 leukocytes in Blood by Automated count 10 % [facility] Eosinophils/100 leukocytes in Blood by Automated count 1 % [facility] Basophils/100 leukocytes in Blood by Automated count 1 % [facility] Neutrophils [#/volume] in Blood by Automated count 3.20 10*3/uL 1.8-7 .0 [facility] Lymphocytes [#/volume] in Blood by Automated count 4.16 10*3/uL 1.2-4 .0 [facility] Monocytes [#/volume] in Blood by Automated count 0.78 10*3/uL 0-0.8 [facility] Eosinophils [#/volume] in Blood by Automated count 0.04 10*3/uL 0-0.5 [facility] Basophils [#/volume] in Blood by Automated count 0.05 10*3/uL 0-0.2 [facility] Nucleated erythrocytes/100 leukocytes [Ratio] in Blood by Automated count 0 /100{WBCs} 0-0 [facility] ID Date Data Source [id number] 05/30/2020 06:19:46 AM [facility] Name Value Range Interpretation Code Description Data Beatrice rce(s) Supporting Document(s) Magnesium [Mass/volume] in Serum or Plasma 2.2 mg/dL 1.6-2.6 [facility] ID Date Data Source [id number] 05/30/2020 06:19:46 AM [facility] Name Value Range Interpretation Code Description Data Beatrice rce(s) Supporting Document(s) Bicarbonate [Moles/volume] in Serum 26 mmol/L 22-29 [facility] Chloride [Moles/volume] in Serum or Plasma 106 mmol/L 98-107 [facility] Creatinine [Mass/volume] in Serum or Plasma 0.91 mg/dL 0.50-0.90 [facility] Glucose [Mass/volume] in Serum or Plasma 89 mg/dL 70-140 [facility] Potassium [Moles/volume] in Serum or Plasma 3.9 mmol/L 3.4-5.1 [facility] Sodium [Moles/volume] in Serum or Plasma 142 mmol/L 136-145 [facility] Urea nitrogen [Mass/volume] in Serum or Plasma 15 mg/dL 6-20 [facility] Anion gap 3 in Serum or Plasma 10 mmol/L 8-15 [facility] Osmolality of Serum or Plasma by calculation 294 mosm/kg 275-300 [facility] Creatinine/Urea nitrogen [Mass Ratio] in Serum or Plasma 16 [facility] Calcium [Mass/volume] in Serum or Plasma 9.5 mg/dL 8.6-10.0 [facility] Glomerular filtration rate/1.73 sq M pre dicted among non-blacks [Volume Rate/Area] in Serum or Plasma by Creatinine-based formula (MDRD) 68 mL/min/1.73m2 >60 [facility] Glomerular filtration rate/1.73 sq M pre dicted among blacks [Volume Rate/Area] in Serum or Plasma by Creatinine-based formula (MDRD) 79 mL/min/1.73m2 >60 [facility] ID Date Data Source [id number] 05/30/2020 06:19:46 AM [facility] Name Value Range Interpretation Code Description Data Beatrice rce(s) Supporting Document(s) Phosphate [Mass/volume] in Serum or Plasma 4.4 mg/dL 2.5-4.5 [facility] ID Date Data Source [id number] 05/30/2020 06:19:46 AM [facility] Value Range Interpretation Code Description Data Beatrice rce(s) Supporting Document(s) Troponin T.cardiac [Mass/volume] in Serum or Plasma <0.01 [facility] ID Date Data Source [id number] 05/29/2020 04:56:18 PM [facility] Value Range Interpretation Code Description Data Beatrice rce(s) Supporting Document(s) Troponin I.cardiac [Mass/volume] in Blood 0.00 ng/mL 0.00-0.08 [facility] ID Date Data Source [id number] 05/29/2020 04:15:02 PM [facility] CT ANGIOGRAPHY THORAX [id number] RESULTI nterpreted by:ANITA DevriesROCEDURE INFORMATION: Exam: CT Angiography Chest With Contrast Exam date and time: 05/29/2020 3:45 PM Age: 60 years old Clinical indication: Shortness of breath; Additional info: SOB since Monday, chest pressure sensation TECHNIQUE: Imaging protocol: Computed tomographic angiography of the chest with intravenous contrast. 3D rendering (Not supervised by radiologist): MIP and/or 3D reconstructed images were created by the technologist. Radiation optimization: All CT scans at this facility use at least one of these dose optim ization techniques: automated exposure control; mA and/or kV adjustment per patient size (includes targeted exams where dose is matched to clinical indication); or iterative reconstruction. Contrast material: OMNI 350; Contrast volume: 100 ml; Contrast route: INTRAVENOUS (IV); COMPARISON: CR XR CHEST FRONTAL ONLY [id number] PORTABLE 05/29/2020 12:39 PM FINDINGS: Pulmonary arteries: No evidence of pulmonary artery emboli. Aorta: The maximal diameter of the ascending aorta is 4.0 cm which is is of normal. No evidence dissection. Lungs: Unremarkable. No consolidation. No masses. Pleural space: Unremarkable. No pneumothorax. No pleural effusion. Heart: Unremarkable. No cardiomegaly. No pericardial effusion. Lymph nodes: Unremarkable. No enlarged lymph nodes. Gallbladder and bile ducts: Small calcified gallstones are noted within the gallbladder. Spleen: Nonspecific 17 mm hypodense lesion in the spleen. There is a 2nd 7 mm hypodense lesion. The spleen is minimally enlarged, 13.5 cm. Bones/joints: There are degenerative changes of the thoracic spine. No fracture or focal osseous lesion. Soft tissues: Unremarkable. IMPRESSION: 1. No evidence of pulmonary artery emboli. 2. No active pulmonary disease. 3. 17 mm nonspecific hypodense lesion in the spleen. Second 7 mm hypodense lesion. For patients without history of cancer, recommend follow-up MR in 6-12 months. With history of cancer, recommend evaluation with PET vs. MRI vs. biopsy. THIS DOCUMENT HAS BEEN ELECTRONICALLY SIGNED BY ALVERTO LOGAN MDThis document has been electronically signed by Alverto Logan MD on 05/29/2020 4:14 PM Name Value Range Interpretation Code Description Data Beatrice rce(s) Supporting Document(s) ID Date Data Source [id number] 05/29/2020 12:56:03 PM [facility] Name Value Range Interpretation Code Description Data Beatrice rce(s) Supporting Document(s) [facility] APAOXt6rLzMGNdZpo7LcLpTrRJVvJI0ommj7K8S7nVMzG3WrrNKle9esG8UwF3OcPUIgDBWZRH4DnPVi jb2 [file] kDAyQTyXzv+tvlfH+Tktrl/L/b6cq76yTx+pcm+/[employer]ITCH[employer] INS[employer]OR [file] 6K+vhlk8wzxu6D+gfbr8ljph3P+iepb2myza3U+zlyby06Vl2Uy/Y1tK+vzie1TyrhqU+luuu8CgjbpC +pvhPI4noMKyl2zN50V/o8oM8D+jggs5IOG/A7+B18 BV/BN/AN/AH+AN/Bd/DKmZV5kC7Q6ZWV54OwE52p3GB418Du+l7Jz/J7baUP3UE3Uevmz9S+rwd6968A OYHyA/wJ/un7zK2ak4/Ab+AL+SbvmG3P+cenV5ayAPeI/gB/gO/yf28MCaiUFC0mSKTpsH3m+lpWB4cL 3Vu7sO2+A7+BL+AL+M59Uz7Tt+Ab+Ab+AH+A7+A7+A F+gD/BP/Tlv6UBErsnrvnJUoZgELGq6Hk6CohEksZe5Zx4Ly1Nh4By+E7H95/6rrNBz/UEH/Btr00Dki ZvqpOtsHqmHioMjmjzcDuzDEkMn1S/lFglHp4MTj0fqiuaqRN2+TLhzLIp3LxpS6J2PclU1D0B5tG78u Oor6C+rrtT5frnx8B+wouE7ptPhdO0CoPlL/t2tG9H +1a9b1n7msJg55/5mK700QdbSwosx/AN96O+DeAneQ5BsLfy14Uakmr72Awkuohb6x288vhpEz4rxj/g C/bwyIAQUU2SyDs52NcBL1Gu2So8At2DD+MA1JwfQ/vquQa/XWdD9hfQmfz3RiCqaj2F+ytwt8ahB/sa 5fuIljm4MnGroE4F4JosO0Y1JrghhT0K8EJTmImz/j xZsmj976D/ERptD2kihrF6NBqgGY5Mmvgy4Kf4AS8Ub1VqnkK1skzVwhLNKO48ofpQwWXza3A+jvo66u uor6O+myw51tkjt0C+nia18soes3J+jepW1jar88VwwatIkwxaPjBjSwyhaDm/181LT7CzFE7V3V6LA2 BoxKjhfpUxCM5Epda6Rf+CPw9/ov+uwXFRbzdlS6ku e6Eg13CwykbFnPcmlaGqcLohHMoK75LxvJ/YM4yCXnV+aV+Lkg99Nh521ukEj5i27fAf5mBapj6dvEvp 1b6trm/+FiPA7007ku/at647+Rj7j87zGg4FHUPiW9hYh6KF3fuk9Tc3s86rvuHu/AA/wJ/gz/M9aV/l i7M2lKWC+0rq+fOsV1LA+yrlk/NJqr4kwhMKqoTJDD p1Aa7Xl6+14UQq0kM0Si1WT+AH+BP8+gQ7uruNprq/gd/Gf0mlnbxSFH446wSEO+vQTOnnOjNTeruOzJ jbe4194Br91tgZtxf5GDiT1oyLC5pC++/7slS2800S2G+0rnp2Iwq57/oXnw2dIHOxA506C0G+uHVM5t 20lAo1D6/fexgnZ5HZ5d15YUoa+vbXSerAbV/dJ2zX tT7+wHU+3j5ejY1pwu1Rmhe8zPNGstR6FhNL7cqg4ru85mcl+ryvuDCaJvFQlFlPE3hrMV7DTl/nOhYj mbiqd+yz1pprz2XyLE5W+/f8Fweu0nN+r00xqhk4gr/BV/AQAae67bakh9fEnuks4Mi1y/9tgGeg9Ku4 E+Pdi9YhqLj0OyL7o1+d+voz3Qdka9qn3DstkqrOc/ rzhnFdkUc2IqUHtiRnT1LHQn38FCc93pC+ynLGmX/0TGByDq18anpHUjoUmAs1OB1oDaagkiB3LTn3Df Wg/11XDnql6mHLOip/tQm0MsPJt/9+L/sqr9G+jvq6gC/gd/DEX8r6HsU8cW+leE2f63ytO26o1yohE1 o0TekThq8EdR0zm6S+riyZ9bsyt8T+boyU9zfvn9A+ qZ684waAY5R+qmsHH/639D5H5i5uH/Y05yHm2NsIoG1G00j+OwV89N+R3DqnnVoXr4U/Vdd2vj/9V3WN +k7UN+0xocox19S6H/pyy21K12/5V68z/+p1gd/Ab+AL+AJ+B7+Dr+Ar+Aa+gT/AP/TN50uJvf8+q9dp X70C/An+6b/aTv/VdoHfwD//g1r+q+SLnesOfgdfwV fwDfzzv6/t/O9rG+A7+A5+gB/gT/Dn81+gaV/ta/Ab+A18AV/AP/5atnracTuyEOgJ99CH/5Xwd1o8yx Ad/AA/wJ/gn/VBzfXBfQ1+A7+BL+AL+B3883+ujT4Ils/2ZF4b+Ab+WV/QPlCOg++4/6yXKdYHFeuDmu uDeb+v9JJIg05x5bCvyM+rj3uyX6cxn/wtIq2KBgUO 5DyBS4fVwe6QWb+csCjvyQm8rP6tJL0NvJ5t6mvQ87KI3XTP+qBifVCxPqiG+ct0DU1l+Aq+gW/go76G +amkk7mrgs/ua/An+UXdk28hD3JtvR/gC/id05LPP4XwpAxGk+Ab+MtqwizL2EvqldKwV0r6aT7Q1uwo iK26hlFECF3OmI4x22xgP97t6YVA93KtF16t6kIS/g IfoCj7VxQ28FkRU6q13nddh61Bxs8X81P1C+0baN+MSbm7KbIATF2D7NYZlyTmR7jbOI+qx3C5G0JOyC 7UN9C+E/35jo8M4E+J/zePqzLqE1U+E+396d4U0MgJgsDdX3C+E/WdqO/M+yx3UvEV4A/3opUVrsr2n8 fc/qErpR75cagXghvssR/1tbx/9Kznj2X7KW/Vd1+D v+rref+ck08L3U4WxmP4Z80pTl5v04Eac/1Xa/y368y/1a33RjK+6Ov6+Uxvrt3Lf8i+ilj7CjcO/4Jh /0J0EI0i/5DznF055mxZn+B+EsiW6uG6oK8M9mzNCtFZOf9/dkmWC6zvKhx+VRw3bpxq+GNNjj/W0r5K 1crHJ3YWzy6gb9yPqJ/qeoA/bNtsMmguV7su12negx NQOZufsf8c+pr4WE7a9cUoO+6Xo+kiZ6SxuX4Nbs230s3C369jbg3T88SjaH+q/DM+M74OPece/2r52S r6Qdsp6d/SmpmhIHt4Okl8NqITMuiyStLjG+ggJarY2LzWUYsE9WHzSBK9Xegxa/+b5z23v+4Wxrq+/X WRZS5/3b62c8/tr+lZ70K957Iqtf70gPp8nvlHZBA9 jh5X5i8nqu0nWoDvRvmQ5b+uH3+dpf9q+eVMj7/dDPoM/8VH4Gxsh8lUUgs0xlO6ct5H+rd5Zz5q5Ga3 r+rawDfwB/gD/LM72dK+gayLQ7PUvsE8+5VtpO9zAx1gRW8EqP0J0/PA+Ycpz5ay1kBQwmvAVC4TF8V/ KAru4sJ+Bj9wP+o7UN+B+nxd00who88T+jrq6+i/3s Wg9Kd2cjVB7nB+Bh/1dcxHaV/k17SjnP/2NfgT/Hn4aV/ta/Ab+A18AR/eW9xpeQfYFX2J74ZuM/sa/A E+0udJjlN4WkhtcY+aowT4PgL95cd80dj3D3roC7Ga3YY+E/Nm4QmAcW3l62e1xHlthobekMUvxaiL+x r8AD/An+DPhz/LciaV1QunF/zyaXtuv7Oy+o6rg6/g n/Isl4Q9M/kD5Q+J8inCDS7k/kA5E+Qdlb46uHnhZ/k0t8bakyKGO/VtqG87/Yh5804MJ/ANfAN/gD/A d/Ad/AA/wJ/gz/Cage49Im/2AnJFLZ1NsPP0KnGdeX2JcHusFcrGPgvK5E2V9kG2xmK5M/zTf0c//Xd0 cI4r0Dkjsc8jM5N1A2+Dr+XAa3sCy+BDn/vpv6Of/j u6gx/qZ0297DeZljH3tKe/iv6r6L/ps3rH2WbgV/gKvoKP/qvn/2ik/2pfg+/gO/gBfoA/wZ+Hn/6rfQ 1+A7+BL+AL+S96Nd5p4557t/Y1+Aa+gT/AH+A7+Zxgbx3mzcJT/gR/Hn7aV/sa/AZ+A1/AF/A7+B18BV /BN/BXfZetPtK+2tfgO/iGdwCk4X/w5+ZqfiDm6uF4 1Uz+qu++Rj6ha9FiciOviMDleVgc3goa2do7Nx4Nz/e70dcsg4Y6335X7Ik2jx+F14Tw2Nr79QcQSll3 JacGenUk6EF/QwedzX8W+m+g/wb6b6D/EgxxtF4N5P+J/tpRpap726P/Jqyk75980s1P/RivJsbnifF5 SynJtHCaX83N+k7UF/sXmXtI3z3M+Wue+devM//6de Xpd23wqX/8VfBZ96/5yOG/sjxwUM6ynnv3H3uB0A/eWIoFG8YT5Vi4K/62mkAaq39voGQskLmxh4qs8a iztzM+skjuz0juHtm568Z7K3095ysV/KLKN0099Ww+XV+5kn/PH98zz47wNe65/ZFwYcikHOqkxrl4gb 8jp/+2vB4K3uPiY3wl/31P+0qTn/6r5B//u6fek4ge Xj26A70IdF2xCO97uH246uxl31UR1FII+qBjfdCxPuhYH/R+/HWe9lV+Wz/+Bkv2nLR34DkPe+bdUM4A l7ZmZWclR4l//jrvx1/Luis Armando/gs6rsccx/3/X877se+9n12M+aCg7J90Eb5Zk8Tt23o9R/Lwovxs4i+q+i /yr6L+uo6aRvtO421+3Un113BY139D170Qr0P41rgP Xn/ke4879q+0oyoJXbOg+7/Spa8cow9mKmm80aMSSJx/jq8x04zC+8xAgUbr703oHua/bj+W1fla/Pb/ oxVG1T48+f0G/38m0keLv77sj/tq/KZ+jjes75+lj+ydQi397HtmsK+v0shn4q7/r+/pb82z+KhT31kD rWPWt/oNaf551vDFU/Eo3e52e8dXKnbS1wasYEF9oD 8T/9JPgnFq75pw/jf/YBfYb/yuG/waldemar+O/Naeem/kLnh2Oa1/lcN/5a7gG/gE2gsJN+A7+A5+gI/5CP4r h//K4b9y+K8c/iuH/8rhv/LA/BsYn+G/lzhdPJ0un/P/63H+9z3O/77HAB/1hf/K4b9y+D94Bf0LrGDq e7qCy1T+E/MddI8EsdP/fudcSO9kt64zqD6d1nFNye XC6HtgaClj72w2TxpfwdLt5UwH+yquC/wGfgNfwD/8JzgDnJRuYIcM56U6vK3H/gDfcb+jnAA/wJ/gH3 0O2FcB+dwlPpXnz2L1PgTjmv1//GwirXMq7S7whcVnT/pN6EySpaWUbKR4rj4D4MHRW31/I+T8L4Sc+S hgX4Wc/9LM3OlID8P9NQI/oXwDf+D+ge9E+8J/FfBf VzsSMd0VbU2L4U3T/FfRoc/9rC9EP/UmMA1rexo/g6/gK/gGvoE/wB/gO/mZryJx4K/va6aGnE8Z9Asp KTyPL3AdWZ7J0QAUK5KuSX40yH+h6L+K/qvov+rgO/gBfoA/ykr6BJjvNPA80TbRS8dXLewhzf0M+hrq r1ceqI6R0PalE7A1Qb7ozY8RUY6LrK1Q5pdC22ZB7k MACHADO+bWsdRVkKmfTF6eC+g7Ud6C+A/XF+uQasBWaKyhB5K2o58U5R6wH39Gm6Z2Q6KiUzm80thkHayJCp/ 9++YgaA5q72JabDDVTJa1hdG+J1gvcTmzTC6h51HeguQ4FUT2EK8pQvOlb/2RA0B3SWKfLTd3nT1ghaQ 6B+ykH85Y5IJe+gW/lH1xMyXxS+JsjAeQtS8tQblNW pFduGN2gMF6A1CtZgZ9DrKbmX9YaYVRoBDaQtxpPEoX3LfOlVvrqwNiwTvyfQD+d6L8T/Xee/jsRfWpe F/gN/Aa+gC/gd/A7+Aq+gm/gG/gD/AG+g+/gB/gB/vLa9QU4x6u1Q8Mtdt43Ebyv7BOgsowkuUE108+Z 8isjkKbt5Eyns/nssCOsuGVxqKLfsCVmzURbnOZ25M zIY8F0VxTZ0QhBG4I0IhKE/8eY0azoisZmfvUyabPkmeK13BI9ReT51vgE/buWnle394Yq63xf/BuzH/ /G7Me/MdO+wuzUkiirUq2k3cG/hw32L5r/49Xs5/1pjuWx1vo9qu/+8kfN8l/V9c1f/qvZz37+2U88md lP/VmW3Saa0cWJS4a+zjtPxGeYeoF/8dAXWgz8tpm1 Bx1Xe7Sf3Nv8Mn7SK3Cg7Xj2ke931yLpig29/JNTz37+aWf/34AjR0wajfGksQzeDjrF/ekceMjlg0Z8 44+dtf+sgpIu4C/uXDhJW0O//pwJ+2rCvpqwrybsqznO/3Co961trrAirXO+j+bo4KP/juOPnem/Wj63 edtXMrO/8AQLapFpg82I+wDnbV/EOwA73c03aN/bvp UU647bE1s9rxUis8W83wrNX9aI08pf4FkwR8J6Xvg31/23fVX+jTeaS5zhxiMeX36l5nUwpMKwcq7rpk +23jwZq2k//IEtuczYq7GAI/BSGwdhk3cxbx/iWItL84TKDjrx/KDWtW3/5pBfW1J49YlUsW/pZ7/3jL Rvs5MUooR/gS/gn/0mG4ZQirZEreS+B/G1oP4BvJ8g c0CfA/tk6RhIVnj8ma3z2dh6xpbzM+9tE528+2PnbOAL+AJ+Bx/1ixngST6v7knS28k3BrB3tf1N3dW+ 9jkD/An+fPh3dM+MPJI0nILvVJPXRKYsPGayEDRDEXWeb0dk5lHzMIDVVxGCGXIbxrSTxgJOTn3koSDY zvcdGoKdo0pJxxFCYPUUZQYvZk5atYVLtITyoVLXPk IZCGUglIFQBkIZyOnuN/GMAy/uCXd7YVPQuRbPEvHQN7MbNAKLLXNQUN5oEg+i6qFBzuZmwIuFSLvWTR dx2HfUQgd4oJjwEjlRLKQ1tXUYoAowWGS7gWhKB52e8C5nFOh5IJKNVSTxMRXQlsFjgj8ohecb7KXmVA nFU3HIoZKAWxC4oAP64CsNTfkWKyhvVGbsBbNqnADT tFkXtUZ7RFi4QyPFl7SLI2InoFuE4VZQ50jSPH+GNL0Y0/DcQLZKKfASdu9RQgdbg74cqG4P0kSGwlLV TOWnALREKNvZ9Gt6lvWlJHeAnH7NboWwJYlbOnaJs8UiKSF2pG4XZQ22MbmLXtDUiVzmejiQ1oE3HkRK sZaQyYk2LKYBYDJyXz5chGBUMSRfUqLiPT5Q3xNKOB [file] DEpz4JdLmgSCAyuyEjamxUHGKNIMQQOJLIjtsVKEYgNONHcbmJWIZyHYZMyvxKSEMrNYWZccsAMMOoRF GShloJSBUgbIxyLMxyLMxyLMxyLMxyLMxyLMxyLMxy LMxyKCcywiOMcignMswnwswnwswnwswnwswnwsIsa+XXaZeV6qFejOMRnJbrTZGeEkZWHLtKcB0CRGYq y6MPAIbfKDmAWqPJMoKLgXRMnTiyGLHkRgyErOQNHsBZpkxRWFM88eztKrR705oPaWLiHKMGuv7NQSWg h5Zfpzj6TYjUdaKjpQZPvEwFDYwnxQD5ZhGMCU+Vg2 1Sv4MxhErOnXDdMFUIAPwWbMMesVIurDuW4DYCXarZ2HImnLdHlQofouO2ImS9wWpLGwm7FRw8OSVyMW vMoEVUPRQKexKUZFFSlWVY8ZQvzYOTGHLEVC0Mirh0tO0qYVdCkfMIJqZiRGSXHrxHBJNmCg6HXTnafX wWy5YV0IWUBubSZzgCO4s8Zo4iF5XTVnumHCkFVEGN YRJ+AZkjsPfElhQSQ8imGsbUZNwEEFxODiGEeETEAubXEvBMLBKCYOuWRNBSmIdDStRJjv2czJ1d4vjK snlY/aJM7NPloLRtACP5BGPLTrRjWXoYLdjFqUUbYUIRUUR3SJ+OrEEJ5AEjUfOiy3ZVxIetnytWzE6M L4LSQCBPNhiFOGgYxk4YGqBlt8CFrWMnww5zEGs3Ag A+borynBlWWbBDTISpWefOrzZSwW98xaHK+F98JxQMHJU6kstGojNYvF46soENEYr2CxY8pDc/PCOGe6 tULanNFO5L+xoTpPFcCO7CHAeOYcAgxte2Z+gfao2pIrcUR/+pzpksrHsm+beMaviwSRRoQycMrAKQOn DLzjq/2c/ZfMx/PCXaAHOJEVjGEylin2SMEJd8Q52y 79VFFFgT7Al9BJka5MeSRZJIhB3XlOcQW7xEoeSXFCjAHwsQkHhge1eeGWh+I2ZhrZOPh5ldhPqwbDvt mT+TncPGekYaJ36WmHoeXJnUskPvdfVcKqwtSbmehY7jU7YW2CSpPMpzU30mniY2hPTEGGuUOrBmAbrH jt1tNP687V+WdqieWh00yrB9cMTKLe5DjhlNzlJOXE v4UOafJnaXOWBg2PqOdzsRbnhRDaJ7k6vBxrS8TR5lpeB1zSWEDNHsAAnL6BFGVc1QoRk8KETJKciOny K0yJLzkDH3EdsHSYQbNhTCPw3ZEKBt24VAacVJ3JgTZ2kJgnf6ctCxjvGj2CMS+XlY/g5PmFUqgeTDnK d5HIwYhMNaDbKj7UTRq8VSGTGptamzeTUOHvJR3i2v FsD+6Oe1UxFbNhI3dfqZBGJJlx7oy7wwGaR1q8TWz5ADMuTxXwW0Hq7ioxi/8Lt3V4v0IqK3a3NkJwd4 34+sdqXGavXpFuA1xYMJh9VEvLzheYEgFdO4sEr0MsTEEf3Fx4Ih/B8jcLPrqPN9VAGheZjuRo8bYIly zH8hCB/tMD/idzE7R3ENJdGCGAlLCWeTctYVGBfHUb nYgSUSJGxIgMIpgbKx/BGjAIAcRpTaY0TWvMQjKGqhCwfYLmJ5YbODngm6LNWGUSeZZmzhA7Nlg5uIcw gt3D5jPYWXLK7ZLSWP6JOYZFFUJ/WGOovs1grgaZXrS750wa9oiIx0mhwrkZ6ZeHS8AEyEwWrvXlK1S8 IYvIz5nn4HbZZiGGiLSY1cb2CfSXCKDgSBvjnXgb8+ ZjeepfdhBZfWsS0GWG9X6lzjufKvfEqYgyKhhiYgIgLDrIiGuW4DQ6KK8AkQYlVXCRx1GOq/gQRJwIZR VDLeQXsLG08dKJUsF1mG04AFBfwQgytVkCbM7Q+PzEPANdB4DdANDJ1qnCVUJJOZStoQMIDpQnBsrArK oyqpPAwIHkYzZ3TeIlBYSGInKSrSpXSORVUFhwBAKJ iHTCd9IUUC74HPEhIFaDGTWC+hKtdIpGxuu6WN1CwAcMsyKK6pxuWcXaY0TPx1SPZgDZy2XmJEwTPlTK uE6eGuAAQWMGeUJFFwuVEG0ZqJP9ON5CgDh7XTpX2wCJNYPS0GwnKfVVvHYZxCXAoCu7UVgrbtwdYowu PpaHwD+M7S3PmJfRTFWRhVjMGLHdXDadCQWpxKxblc fm06PxpzfyeJQJXgLSVlJg+XQUHSO4BzsxaFYvmSyqcxCELASRZBMC4BXVSPUAMEULMUSQ4wE4MFVDgR lRrhfYDmChPkIhAFUbeYjx2GcB+7EbpLwAOOHKcAgXlyyjuCjFnZiYmK7LtxaC69MqlJYKxX21PMK4Jh 8BmuVMDqWjLEJC3ZFZIdN4hUslVUyC18ejzVkh72Ia vhFJta148Wm3EjNrbLWUMy7QMDgL08ptgObpw6AyffGPI71MUVLMmAMOZnCEOSZKlZanQ+lEKIOAjWQB Q7lKaCkocSJazxsyd3UKCIDLHRGMrAGqeg/Qn2gT/0m3LF5DOyCObAZb6Cm+mO0nhiKrcCAjGbT9W2Sx 6AdG7n1iloz5XHgsqa/PleAKFhicf2P+xCjiRnoRSw ayiRtpRSwZXJtYe+DsUoaglVsKbEeb13r50xxiQsQzAqZkJPaKpEr/yA9/98tPb+rdd1lR7Xlo8/7Hb9 tc5479+n/iRvm3xAuXriWYW/do86d8m/ff/cPbD19/+SmgB3e7Twdh+8543zV1xMVF9z40gbdrz1428E /24qlH4gZNt18MKu/33635/6s7d9z/w2+++30il427 k7ddRu74+9MUx4164ixl997u1Dj//fDxh28+/e6zDx9/3wDVl1o1d/v4/W8+yqMex1pFVu48/ObDb7/4 0oh4or6Fv0r2J3pxNgR2MR/75rvf/NW93gcelbq1F9/jtnsKvm/05ehTY193+/DlP/+Fy3kM58muewc5 8vtf/fqLjx++nxcGbq69lT/w9v0/uQs40W2+/PKz+w T4LQK9/yThawtMVZnxChu94P/fPt7V//qLH96++e7Ljx+++OFV4i9/9/tG0m2Hw/1lU1iO3l3N//r77z ++/frjhy+///jVN69P/vbDF1+7tTn91k3+++HF/a3uJ4547Zmupj/y5gTLp456//bt99/603y4yV+v1/ 6Ncm8j/m/LcEWUvaEv//Ln//jDX//007+//Z//6+23 f/jjH3/8619/+vGP//D21Y9//gMTv7w4u//R4t/+/p2pp59cs5lxYYK6BuTz54efg2qMf4OX0vR6IKQ/ /ekX/8nXzmgHbtcL/sMmhzx1e+6D6/X1/nn1cn7qaD3r2W5IvTErOHTGC6+bb4qtPs+h7m8qgnFT50q4 +muPd7vGiwBe4Fj8yCpiE883rtdX1cloabs+9sPv3n 67jdkozow5ns016NGYdC+4yooFAoqi6RDA/Zg2a7RWrOnJ2FOV5pnn3jed/vxf//j21x//66d3pb/m2L cDeORs1Xp41WOt6WQCg2l+6OnHtz/8+b9++uv/+98+Ilym4rkphH80bvt+XvrG/uXjD2///j9f3/6Hv/ e180XcvLD/Wg5LuQF/+fSLf/m8c5xvjAF2VmeHCAiX +dyWYV3pdoPHbk8+eVJpviPyJjm7f73gK7/+5OCjc51+/P9++s//3m+edpP+7hkouprdNy4x1yg95/7X X//f2731561Pk/rpTz/+9L6Hw8l7nh/+z9//+J9/+PHP/72ERxAf//KXP33+S/Gf3bC/+du//W6J92gB UB8aVsJ8+un3//ef//D71zs+z7dFP4tu3kdLfGMm// osP44279+//PrDD5/jwt9YO3/v9jstBw66wwMk//h//oXE7m8gG86yRVIjCm410f1RSGoJ16xbHt6ki3 OzH0oSDCru5x49u26aZ9e90tq/+w2943hl3Ol1bbum+z7OaMQXZKmmuiMecHXxPA0URB9mb6BnPiH9CA Sex4GaQQssNNo7jFPqSMuazkOvx3EapcwqG4Hty9Oy ZdYtLDOcWjHqBxv8MEWgHeB1gXMsWvZsNJXzG1NoGVTqAgV9WmXsDXOFIY5GKRHbygMzRoZbBNG+PmVu JJ4szducLYHqw1MtIKudLJiiCQLzH2V2sTkuXRNwG4MtuW98LFDyN5HzgsS7WKY8HSVzSwQhXOIuwVWv OSAwIFI+LvPwJW7bdbzcGBIde4WfIVavKLO6aI7dHC mCSAVPNMlJZVcnGjR2w78aeoYVVMSpMDLuMI9YqcIobBgarkHsaKSxYIZ1HoCkDIYgSZufOlK4LYGMZH EyUYEtPBLgDQCiP7UejOymACtFFAJYLQgPZKxzQtCbm4T0XCQzpeFELMkYV93iJGTSFBEBEYBmIcq5Rc F0GHEnN9WkjqMjnMYqXJMEAZfvSyjtCFZfxF3btQyj G9JnLPV9y3LeJQ0ND4RuCNRqNLSQZPM8u9FiZICkhjmhvxoqCyYqKFStGHAyAAVnQG5Rzt8jlKWjqjWw PIQIWBtrLihvLM0qxGqrwuybB9SyqRHkQEQ+MpYiPW3pak1+DtCgCACdCmm4MCDzYPzkDCMtZZRiTWGn S5wnEQWxAeWrQAMhWkZzPY2Jx1WijOHdFc6qggGpYh iJxQTsDgusNEFmXSPoQZKzBiONWDBvCSVfIMHeTZC7PVYzSGDpHKtdFTVkSNU6CUV4JZRmTSPaZS2kVu TaZBLlJiSxBGafXTKrWBWxaxWXQGBmZCM3WcT0OPGmIETgRPRpMMaxGIBhJOJsLVIzCIJ5IOA2ATDgCg ZgCJHrRVRzHYSzDINcYUJcnoNUFYCnEATiNEY4GUVt XWXwFSHtWZctAFOdMSRtLLrfJGHqIWDgBU9gOsIuWCWqDIFdQTugAMJpPZCmxbHQFAHxFIOoCXUkNTUk FZZqIVStIIqkCUHeWAGbLNDaVQLeOKNrJJ8uDtQnKTGtWME6QPOvZQAgMNVykbCFSVAePXHkMMe7AAXj OZXlOPZpSZzlAQRjOFGkLFD6QNZvBASiAI3vDnViDV CxDRH4KtOfIKUbOQJabgNPSUZaILSvQDM9DtAvESNeNFSmHLciEHZfLXGhNPleBQRiNOJaKQ5iWtJtVM OqBPPoPQgcVNCuLBQapqRBURAfWJWpDSAcZmIbMMHwJIArASorUNVlYMZ7KKS8BVJqOAJiEG3kEoFxWH VsBUK4TAxeCNOdBWPccgFTCLOhZAKgUAnlDEHhTVUf XUIiLCjrDJLrMYAnPEJ1JZXgEGCdIG6eVyEiNGWqATRzEJHeGtX1WqBpQvLWiQUcxBalbtb3WShiB2h3 ENHeBZxjFB2tczSzNRQvXamuXy8jkUU5HVPhIpfXBo1Mt4CosxI6rbVrOfC7MBVaWuWcBJ2C ID Date Data Source [id number] 05/29/2020 12:55:49 PM [facility] XR CHEST FRONTAL ONLY [id number] RESULTI nterpreted by:BRENDON WhitmoreFRONTAL AP CHEST RADIOGRAPH 05/29/2020 12:35 PMINDICATION: Chest pressure.COMPARISON: Chest radiograph dated 07/07/2011.FINDINGS: The lungs are clear.There is no pleural effusion or pneumothorax.Cardiomediastinal silhouette appears normal.Degenerative changes are present in thoracic spine.IMPRESSION:There is no acute cardiopulmonary abnormality.This document has been electronically signed by BRENDON Whitmore on 05/29/2020 12:53 PM Name Value Range Interpretation Code Description Data Beatrice rce(s) Supporting Document(s) ID Date Data Source [id number] 05/29/2020 12:32:00 PM EST [facility] Name Value Range Interpretation Code Description Data Beatrice rce(s) Supporting Document(s) ED Provider Note [facility] XMRMLr3tPxBSIyYk87/LMCyuRCKlk6DnLMqfFXw3AFujGUXvO0TkLME1bL1xJJH7JCsQIwPhYpBfXHJ9 lbm [file] DQplbmRvYmoNCnhyZWYNCjAgMzANCjAwMDAwMDAwMD LwNrU6ArTeBn6ZVOWrMDClYXLsJlCzQDDoNGCaQCtfHOLnJVHrUWYbTWQqIEKqYM3MLpDpPAVaCjU5Ar otVSShFYIkao5BBWJmXLIzFYL2TtMaRHCiYYSbOIiiXNAqDPGaZrK6RSGtEZTeEQ6YQrClVJHnPTM8Rh JuTKDkOPVlim7EZCOaXNLpJpZeKLGiZGUsVFXqLQsu SFFzOGO2SwY7MNJmHYAoVI8HTtOxKFHeUSa0LVtxMYBeMRCspd5YLRViTIMoJvh1LLXbWMWzQTYoVQdn NIZhDTG7CSI2SXAcSRBiSF9MOlMeLOMvVHpyAfOmAUYdVBRcqx1GVDFbFRXcHERbDmMeGCXgCJVdOVey CFFnFOZ9PAI2CBHnPMAvTT9EPpGhODZiJEBfIeMuSU MaJESvzt3UXAMfYUEgWBT2BZCgBPWeTIYgZEjuKDDxKHUuMzU7FNGvNZDzGY9AHmYpGAOlBlPoBPvkLN WsSFBmla7WWIWiCIXlBxInDKWkSSCdIZUcVRxnMQXcKLLeFfX7ZKXtTWGvYK8IGvTdGUYqCcA6ApIyIP ExFCGfaz9ZWUKxXBIuSyJyFTBwLOTfPIAeAUeqMHXa UPZjFJY2TYWwRXPyLC9XEfGnIPArZiL5KQQuRHDdATAigb7UFCTtVDOaDOt3CvZiFGVdZMBeCHqyTKNm DSX0TAT7GVZoVCXlGL7HAyGtGSZfAxTbKLmuUEBsLFJovo7PUSLlSYTwTUF4DVWtMZXiPJQbIQtuBIKx ZWS8IzYdHWHgBLVlUH3FJhWgMBmpDNYJDld4YNzvJ3 i3HTItAL6TP7Mfm8AiZupaNTJNPSppOH6ubvYzTKIgNp5YT5bUEsc1FbE9RBYfKAI0C7WuRBFnKYXdOt EzI3V9VFDhJRW8JQ6kDUgyOTHsEiQ9PHxhSmZvNZMvKIHlG3FnVeZ8ZgZwXhYiEfVxHC7XIm5GSdM7QO W0wWQxRa4PPhR7PLFMCuZjZY5EPVs= ID Date Data Source [id number] 05/29/2020 12:52:55 PM [facility] Value Range Interpretation Code Description Data Beatrice rce(s) Supporting Document(s) Troponin I.cardiac [Mass/volume] in Blood 0.01 ng/mL 0.00-0.08 [facility] ID Date Data Source [id number] 05/29/2020 12:52:55 PM [facility] Value Range Interpretation Code Description Data Beatrice rce(s) Supporting Document(s) Sodium [Moles/volume] in Blood 138 mmol/L 136-145 [facility] Potassium [Moles/volume] in Blood 3.9 mmol/L 3.4-5.1 [facility] Chloride [Moles/volume] in Blood 106 mmol/L 98-107 [facility] Carbon dioxide, total [Moles/volume] in Blood 23 mmol/L 22-29 [facility] Calcium.ionized [Moles/volume] in Blood 1.18 mmol/L 1.13-1.32 [facility] Glucose [Mass/volume] in Blood 151 mg/dL 70-140 H [facility] Urea nitrogen [Mass/volume] in Blood 17 mg/dL 6-20 [facility] Creatinine [Mass/volume] in Blood 0.7 mg/dL 0.50-0.90 [facility] Hematocrit [Volume Fraction] of Blood 34 % 36-45 L [facility] Hemoglobin [Mass/volume] in Blood by calculation 11.6 g/dL 11.5-15.5 [facility] ID Date Data Source [id number] 05/29/2020 01:30:24 PM [facility] Value Range Interpretation Code Description Data Beatrice rce(s) Supporting Document(s) Fibrin D-dimer FEU [Mass/volume] in Platelet poor plas ma by Immunoassay 0.50 ug/mL{FEU} <0.50 H [facility] ID Date Data Source [id number] 05/29/2020 01:30:54 PM [facility] Value Range Interpretation Code Description Data Beatrice rce(s) Supporting Document(s) Albumin [Mass/volume] in Serum or Plasma by Bromocresol green (BCG) dye binding method 4.3 g/dL 3.5-5.2 [facility] Bilirubin.total [Mass/volume] in Serum or Plasma 0.4 mg/dL <1.2 [facility] Bilirubin.direct [Mass/volume] in Serum or Plasma <0.3 [facility] Alkaline phosphatase [Enzymatic activity/volume] in Serum or Plasma 121 U/L 35-104 [facility] Aspartate aminotransferase [Enzymatic activity/volume] in Serum or Plasma 18 U/L <32 [facility] Alanine aminotransferase [Enzymatic activity/volume] in Seru m or Plasma 14 U/L <33 [facility] Protein [Mass/volume] in Serum or Plasma 7.6 g/dL 6.4-8.3 [facility] ID Date Data Source [id number] 05/29/2020 01:30:54 PM [facility] Name Value Range Interpretation Code Description Data Beatrice rce(s) Supporting Document(s) Bicarbonate [Moles/volume] in Serum 22 mmol/L 22-29 [facility] Chloride [Moles/volume] in Serum or Plasma 104 mmol/L 98-107 [facility] Creatinine [Mass/volume] in Serum or Plasma 0.88 mg/dL 0.50-0.90 [facility] Glucose [Mass/volume] in Serum or Plasma 154 mg/dL 70-140 [facility] Potassium [Moles/volume] in Serum or Plasma 4.1 mmol/L 3.4-5.1 [facility] Sodium [Moles/volume] in Serum or Plasma 137 mmol/L 136-145 [facility] Urea nitrogen [Mass/volume] in Serum or Plasma 15 mg/dL 6-20 [facility] Anion gap 3 in Serum or Plasma 11 mmol/L 8-15 [facility] Osmolality of Serum or Plasma by calculation 288 mosm/kg 275-300 [facility] Creatinine/Urea nitrogen [Mass Ratio] in Serum or Plasma 17 [facility] Calcium [Mass/volume] in Serum or Plasma 9.0 mg/dL 8.6-10.0 [facility] Glomerular filtration rate/1.73 sq M pre dicted among non-blacks [Volume Rate/Area] in Serum or Plasma by Creatinine-based formula (MDRD) 71 mL/min/1.73m2 >60 [facility] Glomerular filtration rate/1.73 sq M pre dicted among blacks [Volume Rate/Area] in Serum or Plasma by Creatinine-based formula (MDRD) 82 mL/min/1.73m2 >60 [facility] ID Date Data Source [id number] 05/29/2020 01:30:54 PM [facility] Name Value Range Interpretation Code Description Data Beatrice rce(s) Supporting Document(s) Magnesium [Mass/volume] in Serum or Plasma 1.8 mg/dL 1.6-2.6 [facility] ID Date Data Source [id number] 05/29/2020 01:30:54 PM [facility] Name Value Range Interpretation Code Description Data Beatrice rce(s) Supporting Document(s) Natriuretic peptide.B prohormone N-Terminal [Mass/volu me] in Serum or Plasma 529 pg/mL <125 H [facility] ID Date Data Source [id number] 05/29/2020 01:46:54 PM [facility] Name Value Range Interpretation Code Description Data Beatrice rce(s) Supporting Document(s) Leukocytes [#/volume] in Blood by Automated count 5.8 10*3/uL 4-10 [facility] Erythrocytes [#/volume] in Blood by Automated count 5.07 10*6/uL 4.1- 5.3 [facility] Hemoglobin [Mass/volume] in Blood 11.0 g/dL 11.5-15.5 [facility] Hematocrit [Volume Fraction] of Blood by Automated count 34.4 % 3 6-45 [facility] Erythrocyte mean corpuscular volume [Entitic volume] by Auto mated count 67.9 fL 80-96 [facility] Erythrocyte mean corpuscular hemoglobin [Entitic mass] by Automated count 21.7 pg 27-33 [facility] Erythrocyte mean corpuscular hemoglobin concentration [Mass/volume] by Automated count 31.9 g/dL 32.0-36.0 [facility] Erythrocyte distribution width [Ratio] by Automated count 17.3 % 11.5-14.5 [facility] Platelets [#/volume] in Blood by Automated count 253 10*3/uL 150-400 [facility] Differential cell count method - Blood [facility] Neutrophils/100 leukocytes in Blood by Automated count 88 % [facility] Lymphocytes/100 leukocytes in Blood by Automated count 9 % [facility] Monocytes/100 leukocytes in Blood by Automated count 3 % [facility] Neutrophils [#/volume] in Blood by Automated count 5.09 10*3/uL 1.8-7 .0 [facility] Lymphocytes [#/volume] in Blood by Automated count 0.55 10*3/uL 1.2-4 .0 [facility] Monocytes [#/volume] in Blood by Automated count 0.16 10*3/uL 0-0.8 [facility] ID Date Data Source [id number] 05/29/2020 12:52:55 PM [facility] Name Value Range Interpretation Code Description Data Beatrice rce(s) Supporting Document(s) pH of Venous blood 7.47 7.36-7.41 H [facility] Carbon dioxide [Partial pressure] in Venous blood 33 mmHg 40-45 L [facility] Oxygen [Partial pressure] in Venous blood 59 mmHg [facility] Base excess standard in Venous blood by calculation 0 mmol/L [facility] Oxygen saturation Calculated from oxygen partial pressure in Venous blood 92 % 60-85 H [facility] Lactate [Moles/volume] in Venous blood 1.4 mmol/L 0.5-2.2 [facility] Bicarbonate [Moles/volume] in Venous blood 24 mmol/L [facility] ID Date Data Source [id number] 05/29/2020 12:02:00 PM EST [facility] Name Value Range Interpretation Code Description Data Beatrice rce(s) Supporting Document(s) SARS-CoV-2 RNA 2019 nCoV Real-Time RT-PCR: NOT DETECTED [facility] This lab was ordered by [facility] and reported by [facility]. ID Date Data Source [id number] 05/29/2020 02:38:48 PM [facility] Service Cmnt XXX-Imp : NoneRespiratory P CR Panel : PCR ResultsMicroorganism XXX Cult : See Labs Tab for 2019 nCoV RT-PCR resultsHAdV DNA QI CASTRO+non-probe : Not DetectedHCoV [id number] Nph QI CASTRO+non-probe : Not DetectedHCoV [id number] Nph QI CASTRO+non-probe : Not WczlwasiBLjMPG48 RNA Nph QI CASTRO+non-probe : Not IjtfnqrgNIcNSC53 RNA Upper resp QI CASTRO+probe : Not DetectedhMPV RNA Nph QINAA+non-probe : Not DetectedRV+EV RNA Nph QI CASTRO+non-probe : Not DetectedFLUAV RNA Nph QI CASTRO+ non-probe : Not DetectedFLUBV RNA Nph QI CASTRO+non-probe : Not DetectedHPIV1 RNA NphQINAA+non-probe : Not DetectedHPIV2 RNA Nph QINAA+non-probe : Not DetectedHPVI3 RNA Nph CASTRO+non-probe : Not DetectedHPIV4 RNA Nph Q CASTRO+non-probe : Not DetectedRSV RNA Nph Q CASTRO+non-probe : Not DetectedB pert.PT PrmtNph Q CASTRO+non-probe : Not DetectedC pneum DNA Nph Q CASTRO+non-probe : Not DetectedM pneum DNA Nph Q CASTRO+non-probe : Not DetectedB [id number] DNA Nph CASTRO+non-probe : Not Detected Name Value Range Interpretation Code Description Data Beatrice rce(s) Supporting Document(s) ID Date Data Source [id number] 05/29/2020 02:37:16 PM EST [facility] Value Range Interpretation Code Description Data Beatrice rce(s) Supporting Document(s) Specimen source [Identifier] of Unspecified specimen [facility] SARS-CoV-2 RNA 2019 nCoV Real-Time RT-PCR: NOT DETECTED [facility] Assay Performed [facility] Patients first test for condition [facility] 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 [facility] Patient has symptoms related to [facility] When did you start to experience these symptoms [Date and time] [Phen X] [facility] Patient was hospitalized because of this condition [facility] patient was admitted to ICU for [facility] Patient resides in a congregate care setting [facility] status [facility] ID Date Data Source [id number] 05/27/2020 11:07:30 AM EST [facility] Name Value Range Interpretation Code Description Data Beatrice rce(s) Supporting Document(s) NT PRO BNP 346 pg/mL (0-125) H [facility] ID Date Data Source [id number] 05/27/2020 11:07:30 AM EST [facility] Name Value Range Interpretation Code Description Data Beatrice rce(s) Supporting Document(s) TROPONIN I <0.05 ng/mL (<0.05) [facility] [place] Less than 0.05: Myocardial injury unlike lyGreater than or equal to 0.05: Highly suggestive of myocardial injuryCorrelation with rise and/or fall ofserial troponins, clinical symptomsand ECG changes is necessary. ID Date Data Source [id number] 05/27/2020 10:46:50 AM EST [facility] Name Value Range Interpretation Code Description Data Beatrice rce(s) Supporting Document(s) MAGNESIUM 2.0 mg/dL (1.7-2.4) [facility] ID Date Data Source [id number] 05/27/2020 10:46:50 AM EST [facility] Name Value Range Interpretation Code Description Data Beatrice rce(s) Supporting Document(s) SODIUM 143 mmol/L (136-145) [facility] POTASSIUM 3.4 mmol/L (3.6-5.2) L [facility] CHLORIDE 113 mmol/L (100-108) H [facility] CO2 25 mmol/L (22-31) [facility] ANION GAP 5 mmol/L (7-16) L [facility] UREA NITROGEN 11 mg/dL (7-24) [facility] CREATININE 0.77 mg/dL (0.60-1.00) [facility] BUN/CREAT RATIO 14.3 RATIO (10.0-20.0) [facility] GLUCOSE 96 mg/dL (70-99) [facility] CALCIUM 9.3 mg/dL (8.4-10.2) [facility] GFR >60 ml/min/1.73m2 (>59) [facility] GFR ([facility]) >60 ml/min/1.73m2 (>59) [facility] GFR INTERPRETATION [facility] --NORMAL KIDNEY FUNCTION OR MILD DISEASE - GFR >OR= 60CHRONIC KIDNEY DISEASE - GFR 15 - 59RENAL FAILURE - GFR <15 Est. GFR calculation based on the MDRDstudy equation, which assumes a steadystate for creatinine. Est. GFR should notbe used for medication dosing. ID Date Data Source [id number] 05/27/2020 10:24:46 AM EST [facility] Name Value Range Interpretation Code Description Data Beatrice rce(s) Supporting Document(s) WBC 6.0 10*3/uL (4.1-11.0) [facility] [place] RBC 5.29 10*6/uL (4.00-5.40) [facility] HGB 11.3 g/dL (12.0-16.0) L [facility] HCT 36.2 % (36.0-47.0) [facility] MCV 68.5 fL (80.0-95.0) L [facility] MCH 21.4 pg (27.0-32.0) L [facility] MCHC 31.2 g/dL (32.0-36.0) L [facility] RDW 17.2 % (10.5-14.5) H [facility] PLT 273 10*3/uL (150-450) [facility] MPV 8.5 fL (7.1-10.7) [facility] NEUT % 52.8 % (35.0-75.0) [facility] LYMPH % 36.3 % (16.0-52.0) [facility] MONO % 8.3 % (0.0-8.0) H [facility] EOS % 1.8 % (0.0-5.0) [facility] BASO % 0.8 % (0.0-4.0) [facility] NEUT # 3.2 10*3/uL (1.8-7.7) [facility] LYMPH # 2.2 10*3/uL (1.2-4.8) [facility] MONO # 0.5 10*3/uL (0.0-0.8) [facility] Eosinophils [#/volume] in Blood by Automated count 0.1 10*3/uL (0.0-0 .5) [facility] BASO # 0.0 10*3/uL (0.0-0.2) [facility] ID Date Data Source [id number] 05/27/2020 10:00:00 AM EST [facility] DATE OF EXAM: 05/27/2020HEST RADIOGRAPH , SINGLE VIEW INDICATION: DYSPNEA COMPARISON: 08/14/2018 chest radiograph. TECHNIQUE: Semi-upright AP Portable view of the chest. FINDINGS: Support devices: None. Lungs/Pleura: The lungs are clear. No large effusion or pneumothorax. Cardiomediastinal contours: Within normal limits. Soft tissues/upper abdomen: Within normal limits. Bones: Degenerative changes of the spine. IMPRESSION: No definite acute findings. Professional interpretation performed at [facility] .End of diagnostic report for accession: [id number] Interpreted: Maryam Howe MDTranscribed: 05/27/2020 09:59 AMSigned: 05/27/2020 10:00 AM Maryam Howe MD [facility] # [id number] BILL # [id number] Name Value Range Interpretation Code Description Data Beatrice rce(s) Supporting Document(s) ID Date Data Source [id number] 05/27/2020 09:41:04 AM [facility] Name Value Range Interpretation Code Description Data Beatrice rce(s) Supporting Document(s) MUSE EKG PDF encoded Neptali Ho giorgital YIMGSu6nQuDCAuKtt0AxMrQoGWSqLC2idlm4V1R3eJJpP8BpiICmx2hwH1SoA4GjHBVjIWBMKM4SmSPm jb2 [file] 2Gc7gaaJoRgRzm1hAvPQj6vS3pkm4YZyn2eOuizXYh86l645BclF/Lelia+l99p/fH63qJN8V5a4l/dnw1 eeqyDus4Dd8KxeX/oT/Bz18hPKjgFSlo/PDxl7xcg/ vr71aoej+15ocoxS8+J2aJf/so4Pk8MD+M9pIgO8e84m65zLb2e5u3x9vrZ6F/vSn9q6/llE+UL93lVY 8M1GMipCw+sqNrfvX9+6P39K++68vf8r+01s5ph6Fb8aMc5c/5EqpR7sWsuR/8HCoKF78VNtsWH72hnC ZaYf61fqhM9wASeDS8liteiq98g/RPr/7r+GqPo/RP r77m+IqNJ85vezgq+DtPP27jjliG22qdUwu+7sST60p8H/86JtzInz7Ib3D5ggsmcWFet44+djw29X1o Hm88rkFPAKkqiEVzS0uRL/5xfHX0/PK01wKDL0q/PB+lL/K/9iGWt9NOsx+noY8fyobF70/xz98whp8S r6Lujq/NM67j5iQaYg2Bahp+Ms76prt/O74K/zu+iv fi+Crel+OrrTZ/4O7kC6O2l4pQ631QI3fZ8csHzxxDI6FOFZ0znbJumC/Cb3lSD7E7Im9V1dVEc8o5fj IwvAzLgCDixQ3f3omb7ncCpjS/x7wM2UoTB2IXTP+p3/khi+iPQ/jKpPf+j2cfj8P/pe+vn/vcLc0Wjw ZKV//2afQrcsmFDH5S8yg1j8G/cf1B/cvQpJmPPf1o w0vRcaSifz/6PKY2816NwH/4DBS5563BvVq8cmQTBssdAeXhX5KKaxzX8Gr2Hn07hbBz/6Gubv9oKPzE Fa4TbmQfLdwNx4T0avGQo4340EK+sMEGE4325v6Vd26R4oqawpZXRHs78tio4odK0Pqs6keQ+kBf/deP Xitn1Ynw+MpvA/U5fDMD5MwxW/QD+vH6nR+QyDYwqv /22PxSS1+zN5Is3Vl/+gYT6ij9T1zD5j0GxyEds8szHlXCc1xH8QIPN8dJ+642apOu4/GVxkY/DJF+dn wV/ys5Nw2r1z95dbC88Sxk8dfwaiPzBd8Q/kB/ob+mf8p73sG0wz8r0Xbf5lwjhc/iO+JnH+L74kcf/t PU52vmoi5Z7e+axPYw6M+x8tH2Pb9f+W/oD64/yOe+ 76OfdvhL/76nftghvqF+1iG+sW9ZBh15vxLw5Phj6y+H+DGHSiP/bjllgqFvHG0tAgiX5ymb0ej/V70W 3vw3Je0FV+s6US1weMDZtlu0SN09eXh+Q9+hx/m7lVQaYw8E1cY62Vb2y0s/L1pF74xHgAVtK/lH+public affairs director 5Z/oLc6Pm8JRkp1g0gdKSvfJws4hHQ93d7vXzl3uny f0Ay7ayvnP/6r+JTbjbme1fI0CzQTAmeXX/YX+xy98OkVCU+ai7A89Xy5RgmZ/6/vi+ZxNhWhx2tE9jp ftIyOSb6ejthy+soBo63XwFp6u5130b20+GMAc2zCGrn/U/FNx8TaEio4/yuhLDlb9E/IZ0E/il0J83u WehvwXnrtee/PjCNGu/DTCSx/oD/T3tVs/tCVtaQ3h POy7pjzxddbwlUgn/BTCS/evrqn/BT+TRPptD6NJa2jxjj+vhvQ+Qm5hexaztwJ/exD/Uc14hSSFK+gP 9Bd6H5+Criminal Analyst+OreFb/jkg7zxl/cfDS9X/z0d3vgzVdxj6Mb9n/tvYWXdgYNzSG7UJwav4gB4e+u7dhbgon lzqlnPOh0m4il/83yBk46Hh03wMPnl1iTQ4Cme7Cv4 X8qC7XpD3EvR/9JFY1Wt2sm05PbKmA54Le1CA0OXwJ58Zkmmxup0/OD3rUV/hKeTq+nymJCbQ2gKRh6w FVpmfVy/RQ7rmDy1Wz3zuC81PiqVYsd++eEj1Ipku65pnC3HXFuf+sQ+k//hD47oanic9/fOU/Z7/0X3 3/bjsD9m26gAP3kWFpbF4/MzA0X+sDKmzAejpTm1J/ b77dIv/iaIpejC775QqoxU062piBioF/v/fTiMW7WSWOho3+dnyl/8Sp+TsTxS4jWJaophSh3ujZZnYu 89P6qZZeC80TihJkC/GDAsRQ97gP02xV8/35KVTdYrcD6zD/L4Mn0AOaMlv1H/JWmew2DEduE5jofc0x oYH1SStL+seKSa9TM4P0GkGD+gZ9r++L2LLbDM7Js9 Cm5n02kOkKP4/NX8mHG+4S26rXfidpZiuz2C9e3k7e70X9D/bijBc7ES6QB5B6Sjs1SH406wl0Sekjjy WBr+KZdHAg2lzWc/B3ORN9mvQIslV/0B/oL/Z6bleb4+S6Igdqz/fpgDZvAfC4cB+t/6U2Gf3R0Fj51G JvCF9F/oWv5q3/zHd83Hwz5m42UL/ibPq6TS/9D9pX 9TXgKwO+sq/cp403jk6l08dv9ra+qq99E/zKgATr1E/oF/Kv/9N6PeAW2t/kc1+67x541M7H+MqEryLd zJ0kWWUqak4xi0sL+Mq/OnX13apMaL0Syj2/S+/9u5Scqr2McT93vdmKm6uIGLWeP06Fd8azH09tc1d+ 7w2e1I12jyG077l51qIYcoP+V/8utHz6y+8d0v/qe4 f0v/reKb2v/0Z6QD+am06LofRm/auvvom+Q/+lF/QL+z66ga5z/8Yw0kiiqGw6cHgXpPv1ZI0qqAE+c3 x1rtL+fk+e4018lzVnnx57Z+KewHoSE09kFi8w+G830UEg4zisKO+1Uf+QZrxshclo7Uu7w3FuiH+pXj U/6ZvwY+7L9+NOP2C51Tub+i29z00Lw/jz7Kung831 LpjXaeb42PZbsr/SC/oF/YZ+Qy+7qAtN1c/N76n4b9wPu61n2903wiFv31A63M1+6qc+s0Ueteooguf0 KiN91WsDI9R6MR8eQhjWGFwrwy8RQrhYgZg+Qe/8MauZbrL2JHrO1PQ7yL6WF0S30V27Gle3wRjy+g29 7grtGaurMi8cl2F33sTFP+uo8Z5i876h99uz6mwjz/ IW3BZQ1sS7+vq/sG+e/8OrS+ukJt4Wj2dScP9c/rej2tO+/ptp6B0/69vk+HzXek5oZuwSuRC+Q9+hH9 LP7Sb3P3n8+Ye9jkgjzX+Px2Rh4cc/O5ngaV/vzjT0B/oD/YX+qt6n8QaG11Ui0So9WX01wuC9n0+Nrz T0E/mRjFJr6Q33X/Ep5V5l2/RIzF98Yf0mju/+pS/0 Rr2w36a2L/a80orCl3ZEudWl4B578+y7xJo8ckj1sf630DoAJOYUjKMr2H6Ez+mt7W43dg6a97Yl04t/ QcvxlfZarK/0ub2DWj3ByGX+Qd+h9/0q/e9vgi4oPjtpu9O2qi6BElM1asQtdz1LdoGI3tslcK6p+1Uy 7Xpd4/tV/Mi4OQ0H/+6iv4ouytqFLTs+6o6Z6vhr9p 25Ss4tL7i0I/IZlb/bl1fFOI+Ev3y2OeknA01w2e/CzZjf94YmU7g/5SI8jO1Jy1b+gZM9Z8ajB/0tve Orl4a+Qd8q/4XhiMK5xPMf9M7sC9VG06+60vv+piv424/ysWtp/2QLZPl0v2u5Z8Drcv/WcnylfV/L8V WmL/S+38z7/jD3oe1lp/TNMZzjh5oytZQRZr8ngG/b cnyl/W/U7FJ04O1PU0inzafulCS5rfr3vuCw5F9f7/CD40N4nt73C/cu8SzcB4vT1VM3si1Rt/FVpB1f qMC3QclDtFt+Qz+bG4DI8MnZg/NClPJlDcFQ5Qo8Pg0AGlD4bTU+cHwV/rJ0ZX2jrMQK2Fr81zXA2OT7 6jBsquL6jHvX284m7FzKy3iK5xmyCnk/lX+0v11+0/ 52jWnrQF/7RdfC+114vxvvd+P9an+78tT+do2N2t+bkxTests1GvbNsgUnep+3J1T3pmY+5rJ9Euvtb+ Kka9c5UzK6Ib3HhvHsgH0qSwzgV/RkY478ey+8p2tnfT7NkmYlkY/Qd+RT54/QEtJO7Qmm4reE3y5+Gt 8cX2nP+dL+mc5fzr446tWn7O/0F/vp067os82sV/oG fYO+Q9+mQ5RL6Ww3jS5jTY9S1DnixhvWr62jUc0lkb+0v71H+hbOb94112K+L8Zn7W/Dj326qfxE8f8l z3N/ri9kd4C+sLW/3b+V2/YK6qV63deml9wgX1+Or+0T8tl9ck3B24Kx+6+285nfj2Vu3ijG2W/OH23H V21MVi8p+2X33kCrmT0E38q/6TUvsX/4yqR4sitbpc 9LttI/vb+Umb9n9ae727sX++x2fKX9+dvxVYt8/J7euK9g9kKc57+gkk6k92qqxYK020xA70S88c7M3U 1bX57cB7yfo1fJ2XJqTzTV9dYS3+/glrgE1LA8p/XenjNtL0/HV/Xlvhw62CvuZbTEhjmb3/xgpqHfuH 3cuIdi2iindl9+mvm1K5r7fv/jDt8dvGXNzkBbFeah 84ORHuUfnR+M9IR+Qm/Z90KeLb+9L29t67ZPR18dM4p6kg4Hb2Gj23a29wavjcHAxuxb03T6Idt86U87 Af1A/cgSW88gd9m9Y8lo/QT0w3kr53o4nH6tmB8c8/oD/YH+Ql/g04Hxf3g78Ue1vsB1fe920sGk4/uy rb5HW/hX11CbKjnmy+/vtvr+qwUyTnb8Ew/hq6Xr9/ vub+ErP8+zYM8WD7mRK2LEJ+cHHUtsnR+0lR10fvJqdhUcbxanrbon3blTR96itc+Zfgm0Up7s+Ra+Ut xShtUwOven29e/BXvV/8J2fKV/jc26Rc8f7/GV/vq74f0YnX0FCEcVQftiaZ2f2Rv8UF+4eFEMgO74Ef 9u2/GV/fe81zq11+2t/0Fdo/9B6f1/MNIGvUG/oF/Q b+q54x953hT46G4XiA06Rn6JjzE5j6t0U6uMe6Tvht/Jt49tjo+Or+S9Ei8FdvT+wm9Y3JuOl33lahOi uPAlX6WIk3dLXu/+fYRx3obXeyel+Vh5tsvyndgtLeFwaD2Fl2Q0PwWYVT+guQ3R6jAO+2U49k92ET/c Ov+7L8arW+d/963zv/vW+o31AF5mkY6G4/X1FX0dK+ PnvdDX9+h834f0+z1du18Jc/AVuto4GquP/YB+Qj+aWriYZP2C/YJ+v/Kfr+t8OmtAJd0/nq/Od5+vzr OfVufZT/mkw1S11Vy3ltKZqrKuxr6Znuh7pzy+HuGrTEO/oF/lH+Gh0U28KkHq74lwek9Hx2gilIYl9U c6NAg668710jQ+2ko/EGILm95udY/VR/fk6u85zk17 [file] 9E05pN9/6bH6oGi68tcf/pBvX8L3490C2Xw/r4Jgpl ceKlnMGkAI2NZV3yi5ChMpV1OAVze8OaPLruLVe4nZEkEGkdwhVge5AairlaS9Oau3WdGtSiJPDtRkGg Sel2BXBiHzO9rEXdDqKwEQPiZ8KmAOPdLcX8GbPhRZSDSM5PRSHdxmGrEpWgXYZ+IhIaAM2fvghuJSFz s0JwHIseCShaEBObC1U6aEjhAPAdU4IxvC25DWHaB9 VtfkB1OQY6BDZqVjVzZDHbeRZrXWLlYRD+QiGnME2qiuriJUUpz7OgUMczUIS7oJ0cXVfMKNXTKQiTOW vhDfP9d72izaEUWRPzMAChXY6EcfDzsJalbaCnjRIeBWO5ArWeKAXvTDXiFfIrMNUNXGUdFDMnQSCmWQ YoL4SbkKsbTDaCQVROBCbFRRcfWpDdn9O3HRAuguXB VKuWA43pHGNMZRMYOFR2AJWuOJOsQzz9XEAxO4VsdjOziFAzBOAJQBihYhhiAOKzxA3tgTcgQ7NtCMB3 o9RlJP2MK8LeMGTgKOYKPKK6e0SyUXVrcqwhaepnXuOhIQTfGCPpLFJaNJ8Gic4juMFsgcSfLIIJLAfu FaprQS4wtVopfcnsL8ImkSMbGTJ+XrEyIO8rra4+Cj FlRJSoBkk2JSIaZEofCVOyTOMyXKYzA3yaHMLaBrJzXSQzBrStZF7Du2OlxHHsAr9oqmOrSmrSvXZsUh npUFBkZZWfJIEmQkKGVGWgXKHcOFQjMPF8RVFoYFDlYOjgJCWqKSd3VHW3KIJzNKKaNJ2jBzCnRLEuGQ b2OHCyEQEiEJFlpcOBFVOuJPC5KYB3PAUuPHOxBYZg BPklQYOtFPYkUXSqEXX5YAE6ZGQxMbCoHDNtMXCmXIRfGZQjYBRiztKETFJoIYQzEIO0SGXqHHQlPBPg CYueLCJyKVMpMQknITQdRYXuTE0gRrYoUKMgLALaPDkgFYVlHRSeanLFUZFcTYMmRZGzHWJkLTRfHHXm OUkmLWUgVLUhUFXuPJQuEJWnUI2pBeVbTJZbCBG1ME JsCLAuRVLpdkBTPCCnIADwLFy3ERNhIBDzRBRhCQllURBsGNJaRMW5CLAgAJEhAN0pGiZuODNpJIV6Hc KxAMLeGGNlkbJSAZXaUUJcQSQ5QqJlVBTkLSSzYPjuXBHiZXXdXUneKNUvWSTvOW7iWkAuXQYrPXCmJT cgMDAwMDAgbiAKMDAwMDAwMTQwNiAwMDAwBuIAow SKTfAIp6HBuzATPmEXFkDD2qCdOuCCMqPWH3BCdaWMPqMPRmftECZKGgQZLvYUfoAKXdNLKdMMRwEGpq SXWwWMJbSQS4TUHwMSUeAB3cLpHkIQYlZNKeIBMkFkO9KwEeMtRTsZTtzSgbqqx4RPiuE7j6KBFlKThw GF6cbsPnSRKlMumkSh0bmOS3LTOiLzqNAr8Ir9HoxzF0hpXpLdw9UKd3VkNlWC2S ID Date Data Source [id number] 05/20/2020 09:30:00 AM EST [facility] ([facility]) Name Value Range Interpretation Code Description Data Beatrice rce(s) Supporting Document(s) Antinuclear Antibodies Direct Laboratory test result [facility] ([facility]) Performed at: RN - [facility] [address] [id number] [employer]: Orly Argueta MD, Phone: [phone] ID Date Data Source [id number] 05/20/2020 09:30:00 AM EST [facility] ([facility]) Name Value Range Interpretation Code Description Data Beatrice rce(s) Supporting Document(s) C reactive protein [Mass/volume] in Serum or Plasma by High sensitivity method 0.35 mg/dL 0.00-0.30 [facility] ([facility] ) Rheumatoid Factor Quant Laboratory test result [facility] ([facility]) ID Date Data Source [id number] 05/20/2020 09:30:00 AM EST [facility] ([facility]) Name Value Range Interpretation Code Description Data Beatrice rce(s) Supporting Document(s) Erythrocyte sedimentation rate by Westergren method 13 mm/hr 0-15 [facility] ([facility]) ID Date Data Source [id number] 05/20/2020 09:30:00 AM EST [facility] ([facility]) Name Value Range Interpretation Code Description Data Beatrice rce(s) Supporting Document(s) Thyrotropin [Units/volume] in Serum or Plasma by Detec tion limit <= 0.05 mIU/L 2.12 uIU/mL 0.36-3.74 [facility] ([facility] ) ID Date Data Source [id number] 05/20/2020 09:30:00 AM EST [facility] ([facility]) Name Value Range Interpretation Code Description Data Beatrice rce(s) Supporting Document(s) Cholesterol in HDL [Mass/volume] in Serum or Plasma 68 mg/dL 35-60 [facility] ([facility]) Triglyceride [Mass/volume] in Serum or Plasma 159 mg/dL 30-150 [facility] ([facility]) Cholesterol [Mass/volume] in Serum or Plasma 212 mg/dL 131-200 [facility] ([facility]) Cholesterol in LDL [Mass/volume] in Serum or Plasma by calcu lation 112 CALC 50-159 [facility] ([facility]) ID Date Data Source [id number] 05/20/2020 09:30:00 AM EST [facility] ([facility]) Name Value Range Interpretation Code Description Data Beatrice rce(s) Supporting Document(s) Urea nitrogen [Mass/volume] in Serum or Plasma 14 mg/dL 7-18 [facility] ([facility]) Glucose [Mass/volume] in Serum or Plasma 100 mg/dL 74-99 [facility] ([facility]) 100-125 mg/dL PRE-DIABETES/FASTING >126 mg/dL DIABETES/FASTING Sodium [Moles/volume] in Serum or Plasma 141 meq/L 136-145 [facility] ([facility]) Potassium [Moles/volume] in Serum or Plasma 3.5 meq/L 3.5-5.1 [facility] ([facility]) Creatinine 0.9 mg/dL 0.6-1.3 [facility] Calcium [Mass/volume] in Serum or Plasma 8.6 mg/dL 8.5-10.1 [facility] ([facility]) Carbon dioxide, total [Moles/volume] in Serum or Plasma 26 meq/L 21 -32 [facility] ([facility]) Chloride [Moles/volume] in Serum or Plasma 106 meq/L 98-107 [facility] ([facility]) Aspartate aminotransferase [Enzymatic activity/volume] in Serum or Plasma 17 U/L 15-37 [facility] ([facility] ) Total Bilirubin 0.4 mg/dL 0.2-1.0 [facility] ([facility]) Alkaline phosphatase isoenzyme [Units/volume] in Serum or Pl asma 119 mg/dL 46-116 [facility] ([facility]) NOTE: ALK PHOS VERIFIED Proteinase 3 Ab [Units/volume] in Serum 6.9 g/dL 6.4-8.2 [facility] ([facility]) Albumin [Mass/volume] in Serum or Plasma 3.6 g/dL 3.4-5.0 [facility] ([facility]) Alanine aminotransferase [Enzymatic activity/volume] in Seru m or Plasma 21 U/L 12-78 [facility] A/G Ratio 1.09 CALC 1.00-1.90 [facility] Glomerular filtration rate/1.73 sq M pre dicted among blacks [Volume Rate/Area] in Serum or Plasma by Creatinine-based formula (MDRD) Laboratory test result [facility] <content>CHRONIC KIDNEY DISEASE STAGING PER NKF</content>
<content></content>
<content>STAGE I & II GFR >= 60 NORMAL TO MILDLY DECREASED</content>
<content>STAGE III GFR 30-59 MODERATELY DECREASED</content>
<content>STAGE IV GFR 15-29 SEVERELY DECREASED</content>
<content>STAGE V GFR <15 VERY LITTLE GFR LEFT</content>
<content>ESRD GFR <15 ON [employer]KTOP SPECIALIST</content>
<content></content> Glomerular filtration rate/1.73 sq M pre dicted among non-blacks [Volume Rate/Area] in Serum or Plasma by Creatinine-based formula (MDRD) Laboratory test result [facility] ID Date Data Source [id number] 05/20/2020 09:30:00 AM EST [facility] ([facility]) Name Value Range Interpretation Code Description Data Beatrice rce(s) Supporting Document(s) Leukocytes [#/volume] in Blood by Automated count 5.9 x10*3/UL 4.1-10 .9 [facility] ([facility]) NOTE: CBC VERIFIED Hemoglobin [Mass/volume] in Blood 11.1 g/dL 12.0-18.0 [facility] Erythrocytes [#/volume] in Blood by Automated count 4.92 x10*6/UL 4.2 0-6.30 [facility] ([facility]) Hematocrit [Volume Fraction] of Blood by Automated count 33.3 % 3 7.0-51.0 [facility] ([facility]) MCV 67.6 fL 80.0-97.0 [facility] MCH 22.6 pg 26.0-32.0 [facility] MCHC 33.4 g/dL 31.0-38.0 [facility] MPV 8.9 FL 7.8-11.0 [facility] Erythrocyte distribution width [Ratio] by Automated count 14.9 % 11.6-13.7 [facility] ([facility]) Platelets [#/volume] in Blood by Automated count 262 x10*3/UL 140-440 [facility] ([facility]) Mid % 6.8 % 1.7-9.3 [facility] Lymph % 30.1 % 10.0-58.5 [facility] Neut % 63.1 % 37.0-92.0 [facility] Mid # 0.5 x10*3/UL 0.1-0.6 [facility] ([facility]) Lymph # 1.7 x10*3/UL 0.6-4.1 [facility] ([facility]) Neut # 3.7 x10*3/UL 2.0-7.8 [facility] ([facility]) ID Date Data Source [id number] 02/14/2020 05:49:17 PM EDT [facility] Name Value Range Interpretation Code Description Data Beatrice rce(s) Supporting Document(s) Specimen source [Identifier] of Unspecified specimen [facility] SARS-CoV-2 RNA 2018 nCoV Real-Time RT-PCR: NOT DETECTED [facility] Assay Performed [facility] Patients first test for [facility] 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 [facility] Patient has symptoms related to [facility] When did you start to experience these symptoms [Date and time] [Phen X] [facility] Patient was hospitalized because of this condition [facility] patient was admitted to ICU for [facility] Reside in Group Setting [facility] status [facility] ID Date Data Source [id number] 02/14/2020 08:04:00 AM EDT [facility] Name Value Range Interpretation Code Description Data Beatrice rce(s) Supporting Document(s) SARS-CoV-2 RNA [facility] This lab was ordered by [facility] and reported by [facility]. ID Date Data Source [id number] 02/14/2020 08:03:59 AM EDT [facility] Name Value Range Interpretation Code Description Data Beatrice rce(s) Supporting Document(s) Progress Note [facility] KCVTYy2kDbNODeGe90/CGAnlXWHfn3EiADmbCBo7NJdmAVHjN7MwQRB6nC1aSEM7VQzPDcZeSrMnIZO9 lbm [file] AgICAgICAgICAgICAgICAgICAgICAgICAgICAgICAgICAgICAgICAgICAgICAgICAgICAgICAgICAgIC AgICAgICAgICAgDQogICAgICAgICAgICAgICAgICAg ICAgICAgICAgICAgICAgICAgICAgICAgICAgICAgICAgICAgICAgICAgICAgICAgICAgICAgICAgICAg ICAgICAgICAgICAgICAgICAgICAgDQogICAgICAgICAgICAgICAgICAgICAgICAgICAgICAgICAgICAg ICAgICAgICAgICAgICAgICAgICAgICAgICAgICAgIC AgICAgICAgICAgICAgICAgICAgICAgICAgICAgICAgDQogICAgICAgICAgICAgICAgICAgICAgICAgIC AgICAgICAgICAgICAgICAgICAgICAgICAgICAgICAgICAgICAgICAgICAgICAgICAgICAgICAgICAgIC AgICAgICAgICAgICAgDQogICAgICAgICAgICAgICAg ICAgICAgICAgICAgICAgICAgICAgICAgICAgICAgICAgICAgICAgICAgICAgICAgICAgICAgICAgICAg ICAgICAgICAgICAgICAgICAgICAgICAgDQogICAgICAgICAgICAgICAgICAgICAgICAgICAgICAgICAg ICAgICAgICAgICAgICAgICAgICAgICAgICAgICAgIC AgICAgICAgICAgICAgICAgICAgICAgICAgICAgICAgICAgDQogICAgICAgICAgICAgICAgICAgICAgIC AgICAgICAgICAgICAgICAgICAgICAgICAgICAgICAgICAgICAgICAgICAgICAgICAgICAgICAgICAgIC AgICAgICAgICAgICAgICAgDQogICAgICAgICAgICAg ICAgICAgICAgICAgICAgICAgICAgICAgICAgICAgICAgICAgICAgICAgICAgICAgICAgICAgICAgICAg ICAgICAgICAgICAgICAgICAgICAgICAgICAgDQogICAgICAgICAgICAgICAgICAgICAgICAgICAgICAg ICAgICAgICAgICAgICAgICAgICAgICAgICAgICAgIC AgICAgICAgICAgICAgICAgICAgICAgICAgICAgICAgICAgICAgDQogICAgICAgICAgICAgICAgICAgIC AgICAgICAgICAgICAgICAgICAgICAgICAgICAgICAgICAgICAgICAgICAgICAgICAgICAgICAgICAgIC PjFLSpLHZnJISpLLMuJZPaPBMyTWq6X9xnJNDzYWDy WN8xTKn5Xl6+ZRtKZoMdIUY3fdMzrB2XYU2ck1CwOSlrGMPzg1DbTSd0EC8TVFFeKZdzCR9IELbydj0U EPPnYPMslETAo0wuLaMxKGN3LDXoCirdBO2DGRGiX0stbnUuZVUaQSEKTW5ZRpQhP0BycU86RHKZYf4+ MEkkkmBxEonUJrW3ZLNvc0BzHRy3QH6LONUgNvzlg0 YfEbCxBOMQGFjvQJ7TENF7IUYhFMMcPs3LPJPsT681xvYgZE0MJt5AYfHwFY3ouo5FLaRtSZLtGsoWJp m5ACclSW3DcNZgIDjOgs9upoNcvnDEs5CsbsCbwZSWaOqvIMewS0ZoQDjlPs9wJEKgOT4rSQ9yXSYtDG J2VeZ1DVSGMK4AEYZrYTAofXNoPIMdMHZNUK4VTXlf RAQ9HFJgaaAsbKGcFEakLL4ALGLsthHiLIgwTXLEQLt+Ei1XUI0vc7NzNBtfDOCmGJ3pmv2NZKxWMbLa L1L1qMRoV9G9WLatZz4TAMDnSYNtWNzhBLEUZVhiAR5RFE8yirX8FC5ZkQCeELSxUEPgqMNgLVs0E59e gVJmAWjzLO8BXRV+Lashonda+Al7EICCeKFChWKTnHoOeQL EFPpDxS5WnA7DNg4NtJ9IrIP15iSlvnbVfFXmlXN5OCU5xTLJqASBXIY4OzOZlxZ9nhrKcQJUeJEJZWt WbB10yuEKwQQMhGNY6ABKqFc0HRPWuR7HvgpFltYxukiOrGQJwIRMATG0CDQzdzpRbeFYirVqtEG22dV mdDW1ONq4AElCmFH3hex4FvUVmTg6PZXUzKl6MKKUa NUJtITPyPWX1SZZyXhDxRLarXVRwTVQdGVI2EMMzOSVvKG9ZJuIoELWzZHmpGJFxXIEqXFSent8SYCGv OLYsXEtnLDZlMBNmUGNpPXijVFJlHBPhLEI3TNAjYPCoZF7QMiEzIGXkXIK8ItGwGZFuIXLdvj1JJBPl OAPlOvEoBFRmZXWdMIRnQOmkGVNpIBUpRGq2NNYoCV JfHZ3PGlOjUOWqKLIeOKZzJQSrDMOzep6QIYGaXMWvSiR6AZMfGQJvURWaHHdhSYZjHFW7FDCwTCMyMS GsRJ7GRdNyQMShBNI2TeCpJQOpPWGzau4UYDUjFFNeKJfyCjAbVZJiPWMkDLfsKPOcWSI2GGC1QBJtVP RbCI2GQsDqJIIxRAQ4EOCeDFBlRDOliq6CFZJvMRHw EnO1UdIqVMXnMMOpVChhUBLlVIE0LIYpUAGbNBXpVN1JEnPlPXCyVYbtMzdpWEFhDZFkqk9TCGMcBNGz IiV5BLQnHOHwGPPmRZzzBXAgQVO0EQB0HMToEXLiJV9XMwBxHRGiPXk8QTwhWINmNPQrpm9MWZWnQDUb JURsQuZtCHZeAQYsJYl7nvBtvOTmQOx8CK6XR4Rdjv OfNrXUWe4Ze937YVToMLGcUr4CC7ogPn2nBYVwBPSPHz3BLIn5ZdDtG5M5VjP6SIKwKzN5YUu3UENjRm ygQOW2FZj2RNw+PSomXLWbYug8TJYqITT4NEZ7KjtpSWTvOGBcDSykIVZgQQ1oSSWSLk4+DQpzdGFydH drAANTRlF5Bvl5NLxlPDKJNp8T Procedure Social History Code Duration Value Status Description Data Source(s ) Smoking 03/29/2021 12:00:00 AM EST Never Smoked Cigarettes com pleted Never Smoked Cigarettes [facility] ([facility]) Alcohol intake 03/03/2021 12:00:00 AM EDT Current drinker of al cohol (finding) completed Current drinker of alcohol (finding) [facility] Alcohol intake 05/29/2020 12:00:00 AM EST Current non-d marie of alcohol (finding) completed Current non-drinker of alcohol (finding) [facility] Smoking 05/27/2020 01:06:00 PM EST Denies Ever Smoked complete d Denies Ever Smoked [facility] Vital Signs ID Date Data Source UNK Name Value Range Interpretation Code Description Data Source(s) Systolic blood pressure 134 mm[Hg] 134 mm[Hg] M EDENT ([facility], [facility]) Heart rate 74 /min 74 /min [facility] ([facility], [facility]) Diastolic blood pressure 83 mm[Hg] 83 mm[Hg] [facility] ([facility]) Respiratory rate 20 /min 20 /min [facility] ( [facility]) Oxygen saturation in Arterial blood by Pulse oximetry 98 % 98 % [facility] ([facility]) Body temperature 98.0 [degF] 98.0 [degF] [facility] ([facility]) Body weight 272.00 [lb_av] 272.00 [lb_av] MEDEN T ([facility]) Body height 64 [in_i] 64 [in_i] [facility] ([facility]) 5'4" Body mass index (BMI) [Ratio] 46.7 kg/m2 46.7 k g/m2 [facility] ([facility]) Body height 162.6 cm 162.6 cm [facility] Body weight 123.378 kg 123.378 kg [facility] Body mass index (BMI) [Ratio] 46.69 kg/m2 46.69 kg/m2 [facility] Systolic blood pressure 128 mm[Hg] 128 mm[Hg] M EDENT ([facility]) Diastolic blood pressure 78 mm[Hg] 78 mm[Hg] [facility] ([facility]) Heart rate 88 /min 88 /min [facility] ([facility]) Body height 63 [in_i] 63 [in_i] [facility] ([facility]) 5'3" Body weight 272.00 [lb_av] 272.00 [lb_av] MEDEN T ([facility]) Oxygen saturation in Arterial blood by Pulse oximetry 98 % 98 % [facility] ([facility]) Air Body mass index (BMI) [Ratio] 48.2 kg/m2 48.2 k g/m2 [facility] ([facility]) Systolic blood pressure 125 mm[Hg] 125 mm[Hg] M EDENT ([facility], ) Diastolic blood pressure 78 mm[Hg] 78 mm[Hg] [facility] ([facility], ) Heart rate 82 /min 82 /min [facility] ([facility], ) Oxygen saturation in Arterial blood by Pulse oximetry 99 % 99 % [facility] ([facility], ) Body height 64.75 [in_i] 64.75 [in_i] MED[facility] ([facility], ) 5'4.75" Body weight 271.00 [lb_av] 271.00 [lb_av] MEDEN T ([facility], ) Body mass index (BMI) [Ratio] 45.4 kg/m2 45.4 k g/m2 [facility] ([facility], ) [place] body weight 120 [lb_av] 120 [lb_av] MEDEN T ([facility]) Body weight 122.926 kg 122.926 kg [facility] ([facility]) Body surface area Derived from formula 2.24 m2 2.24 m2 [facility] ([facility]) Systolic blood pressure 137 mm[Hg] 137 mm[Hg] [facility] ([facility]) Diastolic blood pressure 83 mm[Hg] 83 mm[Hg] [facility] ([facility]) Heart rate 61 /min 61 /min [facility] ([facility]) Body temperature 97.8 [degF] 97.8 [degF] [facility] ([facility]) Body height 64.75 [in_i] 64.75 [in_i] [facility] ([facility]) 5'4.75" Body weight 273.38 [lb_av] 273.38 [lb_av] MED[facility] T ([facility]) Body mass index (BMI) [Ratio] 45.8 kg/m2 45.8 k g/m2 [facility] ([facility]) [place] body weight 120 [lb_av] 120 [lb_av] [facility] ([facility]) Body weight 124.003 kg 124.003 kg [facility] ([facility]) Body surface area Derived from formula 2.25 m2 2.25 m2 [facility] ([facility]) Body weight 272.00 [lb_av] 272.00 [lb_av] [facility] ([facility]) Body mass index (BMI) [Ratio] 48.2 kg/m2 48.2 k g/m2 [facility] ([facility]) Systolic blood pressure 152 mm[Hg] 152 mm[Hg] [facility] ([facility]) Diastolic blood pressure 80 mm[Hg] 80 mm[Hg] [facility] ([facility]) Systolic blood pressure 155 mm[Hg] 155 mm[Hg] [facility] ([facility]) Diastolic blood pressure 82 mm[Hg] 82 mm[Hg] [facility] ([facility]) Heart rate 78 /min 78 /min [facility] ([facility]) Body height 63 [in_i] 63 [in_i] [facility] ([facility]) 5'3" Diastolic blood pressure 85 mm[Hg] 85 mm[Hg] [facility] ([facility]) Heart rate 76 /min 76 /min [facility] Body weight 267.00 [lb_av] 267.00 [lb_av] MED[facility] T ([facility]) Body mass index (BMI) [Ratio] 47.3 kg/m2 47.3 k g/m2 [facility] ([facility]) Systolic blood pressure 148 mm[Hg] 148 mm[Hg] M [facility] ([facility]) Diastolic blood pressure 90 mm[Hg] 90 mm[Hg] [facility] ([facility]) Systolic blood pressure 132 mm[Hg] 132 mm[Hg] M [facility] ([facility]) Body height 63 [in_i] 63 [in_i] [facility] ([facility]) 5'3" Systolic blood pressure 140 mm[Hg] 140 mm[Hg] M [facility] ([facility]) Diastolic blood pressure 86 mm[Hg] 86 mm[Hg] [facility] ([facility]) Heart rate 68 /min 68 /min [facility] ([facility]) Oxygen saturation in Arterial blood by Pulse oximetry 97 % 97 % [facility] ([facility]) Room Air Body height 63 [in_i] 63 [in_i] [facility] ([facility]) 5'3" Body weight 267.00 [lb_av] 267.00 [lb_av] MED[facility] T ([facility]) Body mass index (BMI) [Ratio] 47.3 kg/m2 47.3 k g/m2 [facility] ([facility]) [place] body weight 115 [lb_av] 115 [lb_av] [facility] T ([facility]) Body weight 121.111 kg 121.111 kg [facility] ([facility]) Body surface area Derived from formula 2.19 m2 2.19 m2 [facility] ([facility]) Systolic blood pressure 124 mm[Hg] 124 mm[Hg] [facility] Diastolic blood pressure 70 mm[Hg] 70 mm[Hg] [facility] ([facility]) Heart rate 74 /min 74 /min [facility] ([facility]) Body weight 256.00 [lb_av] 256.00 [lb_av] MEDEN T ([facility]) Oxygen saturation in Arterial blood by Pulse oximetry 99 % 99 % [facility] ([facility]) Deprecated Oxygen saturation in Capillary blood by Oximetry 95 % Normal (applies to non-numeric results) 95 % [facility] Systolic blood pressure 171 mm[Hg] Normal (applies t o non-numeric results) 171 mm[Hg] [facility] Diastolic blood pressure 85 mm[Hg] Normal (applies to non-numeric results) 85 mm[Hg] [facility] Heart rate 83 min Normal (applies to non-numeric resul ts) 83 min [facility] Respiratory rate 18 min Normal (applies to non-numeric results) 18 min [facility] Body mass index (BMI) [Ratio] 45.3 kg/m2 No rmal (applies to non-numeric results) 45.3 kg/m2 [facility] Body height 162.1536 cm Normal (applies to non-numeric res ults) 162.1536 cm [facility] Body temperature 36.9 sophie Normal (applies to non-numeric results) 36.9 sophie [facility] Body weight Measured 264 [lb_av] Normal (applies to n on-numeric results) 264 [lb_av] [facility] Body weight 269.00 [lb_av] 269.00 [lb_av] MEDEN T ([facility]) Heart rate 66 /min 66 /min [facility] ([facility]) Body height 63 [in_i] 63 [in_i] [facility] ([facility]) 5'3" Body mass index (BMI) [Ratio] 47.6 kg/m2 47.6 k g/m2 [facility] ([facility]) Systolic blood pressure 142 mm[Hg] 142 mm[Hg] [facility] Diastolic blood pressure 100 mm[Hg] 100 mm[Hg] [facility] ([facility]) ID Date Data Source [id number] 02/08/2021 07:48:31 AM EDT [facility] Name Value Range Interpretation Code Description Data Source(s) WEIGHT RECORDED 123.6 KG 123.6 KG [facility] spital Height 165.1 CM 165.1 CM [facility] status [Interpretation] - Reported [facility] ID Date Data Source [id number] 06/07/2020 01:05:57 PM [facility] Name Value Range Interpretation Code Description Data Source(s) WEIGHT RECORDED 253.3 lb 253.3 lb Health system Body height Measured 64 in 64 in [facility] ID Date Data Source [id number] 05/29/2020 09:09:58 PM [facility] Name Value Range Interpretation Code Description Data Source(s) TRANSFER FROM [facility] ID Date Data Source [id number] 02/14/2020 05:49:26 PM EDT [facility] Name Value Range Interpretation Code Description Data Source(s) TRANSFER FROM [facility] Patient Treatment Plan of Care Planned Activity Planned Date Details Description Data Source (s) Omeprazole 20 MG Delayed Release Oral Capsule 02/27/2021 12:00:00 A M EDT [facility] atorvastatin 10 MG Oral Tablet 02/10/2021 12:00:00 AM EDT [facility] NITROFURANTOIN, MACROCRYSTALS 25 MG / Ni trofurantoin, Monohydrate 75 MG Oral Capsule 05/31/2020 12:00:00 AM [facility] perflutren lipid microspheres (DEFINITY) injectable marshall spension 9.78 mg 05/30/2020 10:26:18 AM [facility] Albuterol 0.83 MG/ML Inhalant Solution 05/29/2020 11:55:41 PM [facility] Estrogens, Conjugated (HALFWAY) 0.625 MG/ML Vaginal Cream 06/28/2017 12:00:00 AM [facility] ospital Sertraline 50 MG Oral Tablet 05/15/2017 12:00:00 AM [facility] montelukast 10 MG Oral Tablet 05/07/2017 12:00:00 AM [facility] Ranitidine 300 MG Oral Tablet 12/14/2016 12:00:00 AM [facility] Omeprazole 20 MG Delayed Release Oral Capsule 12/14/2016 12:00:00 A M [facility] Metformin hydrochloride 500 MG Oral Tablet [facility] Lisinopril 20 MG Oral Tablet [facility]
[2021-04-01] MEDS ORDERED: CEPH500T PO (07:43)
--- NOTE | 2021-04-01 08:47 | ROOR ---
Patient Name: Cheyenne Gloria Procedure Date: 04/01/2021 8:22 AM Date of : 1960 Age: 61 Room: [facility] Gender: Female Note Status: Finalized Procedure: Upper GI endoscopy Indications: Heartburn Providers: Tariq Davis Jr, MD Referring MD: Carter Silva MD Requesting Provider: Medicines: Propofol per Anesthesia Complications: No immediate complications. Procedure: Pre-Anesthesia Assessment: - Prior to the procedure, a History and Physical was performed, and patient medications and allergies were reviewed. The patient is competent. The risks and benefits of the procedure and the sedation options and risks were discussed with the patient. All questions were answered and informed consent was obtained. Patient identification and proposed procedure were verified by the physician and the nurse in the pre-procedure area and in the procedure room. Mental Status Examination: alert and oriented. Airway Examination: normal oropharyngeal airway and neck mobility. Respiratory Examination: clear to auscultation. CV Examination: normal. ASA Grade Assessment: II - A patient with mild systemic disease. After reviewing the risks and benefits, the patient was deemed in satisfactory condition to undergo the procedure. The anesthesia plan was to use moderate sedation / analgesia (conscious sedation). Immediately prior to administration of medications, the patient was re-assessed for adequacy to receive sedatives. The heart rate, respiratory rate, oxygen saturations, blood pressure, adequacy of pulmonary ventilation, and response to care were monitored throughout the procedure. The physical status of the patient was re-assessed after the procedure. The Endoscope was introduced through the mouth, and advanced to the jejunum. The upper GI endoscopy was accomplished without difficulty. The patient tolerated the procedure well. Findings: The upper third of the esophagus, middle third of the esophagus and lower third of the esophagus were normal. A small hiatal hernia was present. Meridian-colored mucosa was present. Biopsies were taken with a cold forceps for histology. The examined jejunum was normal. 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 The gastrojejunal anastomosis was characterized by healthy appearing mucosa. This was traversed. The hoavy-xh-shpktvx limb was characterized by healthy appearing mucosa. Impression: - Normal upper third of esophagus, middle third of esophagus and lower third of esophagus. - Small hiatal hernia. 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 Biopsied. - Normal examined jejunum. - Gaston-en-Y gastrojejunostomy with gastrojejunal anastomosis characterized by healthy appearing mucosa. Recommendation: - Discharge patient to home (ambulatory). - Return to my office as previously scheduled. Procedure Code(s): --- Professional --- 65904, Esophagogastroduodenoscopy, flexible, transoral; with biopsy, single or multiple Diagnosis Code(s): --- Professional --- K22.8, Other specified diseases of esophagus K44.9, Diaphragmatic hernia without obstruction or gangrene Z98.0, Intestinal bypass and anastomosis status R12, Heartburn CPT copyright 2019 [employer]. All rights reserved. The codes documented in this report are preliminary and upon stenographic court reporter review may be revised to meet current compliance requirements. Tariq Davis MD Tariq Davis Jr, MD 04/01/2021 8:46:47 AM Electronically signed by Tariq Davis Jr, MD Number of Addenda: 0 Note Initiated On: 04/01/2021 8:22 AM Estimated Blood Loss: Estimated blood loss: none.
--- NOTE | 2021-04-01 09:03 | ROOR ---
Patient Name: Cheyenne Gloria Procedure Date: 04/01/2021 8:23 AM Date of : 1960 Age: 61 Room: [facility] Gender: Female Note Status: Finalized Procedure: Colonoscopy Indications: Screening for colorectal malignant neoplasm Providers: Tariq Davis Jr, MD Referring MD: Carter Silva MD Requesting Provider: Medicines: Propofol per Anesthesia Complications: No immediate complications. Procedure: Pre-Anesthesia Assessment: - Prior to the procedure, a History and Physical was performed, and patient medications and allergies were reviewed. The patient is competent. The risks and benefits of the procedure and the sedation options and risks were discussed with the patient. All questions were answered and informed consent was obtained. Patient identification and proposed procedure were verified by the physician and the nurse in the pre-procedure area and in the procedure room. Mental Status Examination: alert and oriented. Airway Examination: normal oropharyngeal airway and neck mobility. Respiratory Examination: clear to auscultation. CV Examination: normal. ASA Grade Assessment: II - A patient with mild systemic disease. After reviewing the risks and benefits, the patient was deemed in satisfactory condition to undergo the procedure. The anesthesia plan was to use moderate sedation / analgesia (conscious sedation). Immediately prior to administration of medications, the patient was re-assessed for adequacy to receive sedatives. The heart rate, respiratory rate, oxygen saturations, blood pressure, adequacy of pulmonary ventilation, and response to care were monitored throughout the procedure. The physical status of the patient was re-assessed after the procedure. The Colonoscope was introduced through the anus and advanced to the cecum, identified by appendiceal orifice and ileocecal valve. The colonoscopy was performed without difficulty. The patient tolerated the procedure well. The quality of the bowel preparation was adequate. Findings: The rectum, recto-sigmoid colon, sigmoid colon, descending colon, transverse colon, ascending colon, cecum, appendiceal orifice and ileocecal valve appeared normal. Impression: - The rectum, recto-sigmoid colon, sigmoid colon, descending colon, transverse colon, ascending colon, cecum, appendiceal orifice and ileocecal valve are normal. - No specimens collected. Recommendation: - Discharge patient to home (ambulatory). - Repeat colonoscopy in 10 years for screening purposes. Procedure Code(s): --- Professional --- 95106, Colonoscopy, flexible; diagnostic, including collection of specimen(s) by brushing or washing, when performed (separate procedure) Diagnosis Code(s): --- Professional --- Z12.11, Encounter for screening for malignant neoplasm of colon CPT copyright 2019 [employer]. All rights reserved. The codes documented in this report are preliminary and upon senior it security analyst review may be revised to meet current compliance requirements. Tariq Davis MD Tariq Davis Jr, MD 04/01/2021 9:02:43 AM Electronically signed by Tariq Davis Jr, MD Number of Addenda: 0 Note Initiated On: 04/01/2021 8:23 AM Estimated Blood Loss: Estimated blood loss: none.
[2021-04-01 09:25] VITALS: BP 145/67
== END 2021-04-01 09:27 | disposition home or self-care (01) ==
LOC: M OPP 07:29
PROVIDERS: ATTEND Surgery
DX: Z12.11 Encounter for screening for malignant neoplasm of colon (principal); K31.89 Other diseases of stomach and duodenum; K22.89 Other specified disease of esophagus; K44.9 Diaphragmatic hernia without obstruction or gangrene; R12 Heartburn; G47.30 Sleep apnea, unspecified; E11.9 Type 2 diabetes mellitus without complications; Z79.899 Other long term (current) drug therapy; Z88.8 Allergy status to other drugs, medicaments and biological substances; Z98.0 Intestinal bypass and anastomosis status; Z86.718 Personal history of other venous thrombosis and embolism
CPT/HCPCS: 43239; 45378; 88305; J3010

== ENCOUNTER → 2021-04-28 | Outpatient (REF) | payer BC ==
[~2021-04-28] MED LIST changes: +CEPH500T PO; -LIDOCAINE 2% 100MG/5ML SDV (FOR ANES.) As Ordered ONE; -NS 1,000 ML IV ONE; -fentaNYL 100 MCG/2 ML INJECTION (J3010) As Ordered ONE; -propofoL 200 MG/20 ML VIAL As Ordered ONE
[2021-04-29 14:25] LABS: % LABILE ALKALINE PHOSPHATASE 42.3 %
== END ==
LOC: M LAB REF 12:16
PROVIDERS: ATTEND Family Medicine
DX: R74.01 Elevation of levels of liver transaminase levels (principal)

== ENCOUNTER → 2021-08-13 | Outpatient (CLI) | payer BC ==
[~2021-08-13] MED LIST changes: +AZEL0.055; +CYAN1000VL IM; +FAMO1TAB11 PO; +ISOVUE-370 76% 100ML VIAL ONE; +MULT1TAB8 PO; +NITR100C2; +NOXI1TAB PO; +SLOW142T5 PO
== END ==
LOC: M RAD 07:03
PROVIDERS: ATTEND Family Medicine
DX: R91.8 Other nonspecific abnormal finding of lung field (principal); K80.20 Calculus of gallbladder without cholecystitis without obstruction; R94.5 Abnormal results of liver function studies
CPT/HCPCS: 71260; 76705; Q9967

== ENCOUNTER → 2021-10-20 | Outpatient (REF) | payer BC ==
[~2021-10-20] MED LIST changes: +ALBU2.5V10 INH; -ALBU83IN INH; -ISOVUE-370 76% 100ML VIAL ONE
[2021-10-21 13:05] LABS: FERRITIN 43 NG/ML (8-252)
[2021-10-21 13:14] LABS: VITAMIN B12 LEVEL 425 PG/ML (247-911)
== END ==
LOC: M LAB REF 11:54
PROVIDERS: ATTEND Family Medicine
DX: D50.9 Iron deficiency anemia, unspecified (principal)

== ENCOUNTER → 2022-01-27 | Outpatient (REF) | payer BC | LOC: M LAB REF 16:02 | PROVIDERS: ATTEND Family Medicine | DX: R30.0 Dysuria (principal) ==

== ENCOUNTER → 2022-03-09 | Outpatient (REF) | payer BC ==
[2022-03-09 17:45] LABS: APPEARANCE, URINE MANUAL CLEAR (CLEAR); BILIRUBIN, URINE MANUAL NEGATIVE (NEGATIVE); BLOOD URINE MANUAL NEGATIVE (NEGATIVE); COLOR, URINE MANUAL LT YELLOW (YELLOW); GLUCOSE, URINE (UA) MANUAL NEGATIVE (NEGATIVE); KETONE, URINE MANUAL NEGATIVE (NEGATIVE); LEUKOCYTE ESTERASE, URINE MAN NEGATIVE (NEGATIVE); NITRITE, URINE MANUAL NEGATIVE (NEGATIVE); PROTEIN, URINE MANUAL NEGATIVE (NEGATIVE); UROBILINOGEN, URINE MANUAL NORMAL (NORMAL)
== END ==
LOC: M LAB REF 16:14
PROVIDERS: ATTEND Family Medicine
DX: R30.0 Dysuria (principal)

== ENCOUNTER → 2022-09-29 | Outpatient (CLI) | payer BC ==
[~2022-09-29] MED LIST changes: +SERT150C PO
[2022-09-29 09:33] LABS: BASO # 0.1 10^3/uL (0.0-0.2); BASO % 0.8 % (0.0-1.0); EOS # 0.1 10^3/uL (0.0-0.5); EOS % 2.1 % (0.0-3.0); HEMATOCRIT 47.2 % (36.0-47.0); HEMOGLOBIN 15.1 g/dl (12.0-15.5); LYMPH # 2.1 10^3/uL (1.5-5.0); LYMPH % 32.5 % (24.0-44.0); MEAN CORPUSCULAR HEMOGLOBIN 27.8 pg (27.0-33.0); MEAN CORPUSCULAR VOLUME 86.8 fl (80.0-96.0); MONO # 0.5 10^3/uL (0.0-0.8); MONO % 7.5 % (2.0-8.0); NEUTROPHILS # 3.6 10^3/uL (1.5-8.5); NEUTROPHILS % 56.6 % (36.0-66.0); PLATELET COUNT, AUTOMATED 208 10^3/uL (150-450); RED BLOOD COUNT 5.44 10^6/uL (4.00-5.40); WHITE BLOOD COUNT 6.3 10^3/uL (4.0-10.0)
[2022-09-29 09:55] LABS: ALBUMIN 3.6 G/DL (3.2-5.2); ALKALINE PHOSPHATASE 135 U/L (46-116); ALT/SGPT 25 U/L (7.0-40); AST/SGOT 18 U/L (<34); BILIRUBIN,TOTAL 0.6 MG/DL (0.3-1.2); BLOOD UREA NITROGEN 16 MG/DL (9-23); CALCIUM LEVEL 8.8 MG/DL (8.3-10.6); CARBON DIOXIDE LEVEL 30 MMOL/L (20-31); CHLORIDE LEVEL 107 MMOL/L (98-107); CREATININE FOR GFR 0.94 MG/DL (0.55-1.30); GLOMERULAR FILTRATION RATE > 60.0 (>45); GLUCOSE, FASTING 106 MG/DL (74-106); POTASSIUM SERUM 4.2 MMOL/L (3.5-5.1); SODIUM LEVEL 140 MMOL/L (136-145); TOTAL PROTEIN 6.5 G/DL (5.7-8.2)
[2022-09-30 10:58] LABS: MAGNESIUM LEVEL 1.8 MG/DL (1.8-2.4)
[2022-09-30 11:00] LABS: IRON (FE) 62 UG/DL (50-170); PERCENT SATURATION 17.6 % (13.2-45.0); TOTAL IRON BINDING CAPACITY 353 UG/DL (250-425)
[2022-09-30 11:03] LABS: FERRITIN 18.9 NG/ML (7.3-270.7)
[2022-09-30 11:07] LABS: VITAMIN B12 LEVEL 405 PG/ML (211-911)
== END ==
LOC: M LAB 08:45
PROVIDERS: ATTEND Internal Medicine Hematology & Oncology
DX: D50.9 Iron deficiency anemia, unspecified (principal)

== ENCOUNTER → 2023-09-13 | Outpatient (REF) | LOC: M PLAIMG 11:02 | PROVIDERS: ATTEND Internal Medicine | DX: R52 Pain, unspecified (principal) ==

== ENCOUNTER 2023-09-25 11:28 | Inpatient (IN) | payer OTHER ==
[~2023-09-25] VITALS: Ht 162.6 cm; Wt 125.0 kg
[2023-09-25] MEDS ORDERED: MONT10TA97 PO (11:45)
[2023-09-25] MEDS ORDERED: ROPI0.5T33 PO (11:45)
[2023-09-25] MEDS: ONDANSETRON 4MG 2ML VIAL IV ONE (13:31)
[2023-09-25] MEDS: NS 1,000 ML IV ONE (13:31)
[2023-09-25] MEDS: MORPHINE 4 MG/ML 1ML VIAL IV ONE (13:32)
[2023-09-25 14:15] LABS: BASO % 0.1 % (0.0-1.0); EOS % 0.1 % (0.0-3.0); LYMPH # 0.6 10^3/uL (1.5-5.0); LYMPH % 8.2 % (24.0-44.0); MEAN CORPUSCULAR HGB CONC 31.1 g/dl (32.0-36.5); MEAN CORPUSCULAR VOLUME 83.4 fl (80.0-96.0); MONO # 0.4 10^3/uL (0.0-0.8); NEUTROPHILS # 6.1 10^3/uL (1.5-8.5); NEUTROPHILS % 85.3 % (36.0-66.0); PLATELET COUNT, AUTOMATED 115 10^3/uL (150-450); RED BLOOD COUNT 2.35 10^6/uL (4.00-5.40); WHITE BLOOD COUNT 7.2 10^3/uL (4.0-10.0)
[2023-09-25 14:16] LABS: HEMATOCRIT 19.6 % (36.0-47.0); HEMOGLOBIN 6.1 g/dl (12.0-15.5)
[2023-09-25 14:42] LABS: CK-MB VALUE MASS < 1.0 NG/ML (<3.6); LIPASE 15 U/L (12-53)
[2023-09-25 14:44] LABS: ALBUMIN 1.2 G/DL (3.2-5.2); ALKALINE PHOSPHATASE 54 U/L (46-116); ALT/SGPT < 9 U/L (7.0-40); AST/SGOT < 8 U/L (<34); BILIRUBIN,DIRECT < 0.1 MG/DL (<0.4); BILIRUBIN,TOTAL < 0.2 MG/DL (0.3-1.2); CPK CREATINE PHOSPHOKINASE 41 U/L (34-145); MB/CK RELATIVE INDEX 2.43 (< OR =4); TOTAL PROTEIN 2.8 G/DL (5.7-8.2)
[2023-09-25] MEDS: GASTROGRAFIN SOLUTION 30ML PO SCH (14:59)
[2023-09-25] MEDS: MORPHINE 2 MG/ML 1ML VIAL IV ONE ×2 (15:00→16:50)
[2023-09-25] MEDS: PANTOPRAZOLE 40MG VIAL IV ONE (15:00)
[2023-09-25 15:32] LABS: BLOOD UREA NITROGEN 17 MG/DL (9-23); CALCIUM LEVEL 6.8 MG/DL (8.3-10.6); CARBON DIOXIDE LEVEL 21 MMOL/L (20-31); CHLORIDE LEVEL 114 MMOL/L (98-107); CREATININE FOR GFR 0.86 MG/DL (0.55-1.30); GLOMERULAR FILTRATION RATE > 60.0 (>45); GLUCOSE, FASTING 99 MG/DL (74-106); POTASSIUM SERUM 3.6 MMOL/L (3.5-5.1); SODIUM LEVEL 143 MMOL/L (136-145)
[2023-09-25 15:33] LABS: HEMATOCRIT 37.1 % (36.0-47.0); HEMOGLOBIN 11.5 g/dl (12.0-15.5)
[2023-09-25] MEDS: PIPERACILLIN/TAZOBACTAM SOD 4.5 GM in D5W MINI-BAG PLUS 50 ML IV ONE (16:06)
[2023-09-25] MEDS ORDERED: FERR325T3 PO (16:56)
[2023-09-25] MEDS ORDERED: ADVA115A INH (16:56)
[2023-09-25] MEDS ORDERED: DRIS50003 PO (16:56)
[2023-09-25] MEDS ORDERED: ATOR1TAB21 PO (16:56)
[2023-09-25] MEDS ORDERED: ZOLO100T PO (16:56)
[2023-09-25] MEDS ORDERED: HOME MED LIST COMPLETE! XX SCH (17:00)
[2023-09-25] MEDS ORDERED: ROCURONIUM BROMIDE 50MG/5ML VIAL As Ordered ONE (17:30)
[2023-09-25] MEDS ORDERED: MIDAZOLAM INJ 2MG/2ML VIAL As Ordered ONE (17:30)
[2023-09-25] MEDS ORDERED: propofoL 200 MG/20 ML VIAL As Ordered ONE (17:30)
[2023-09-25] MEDS ORDERED: ETOMIDATE INJ 20MG/10ML VIAL As Ordered ONE (17:30)
[2023-09-25] MEDS ORDERED: fentaNYL 100 MCG/2 ML INJECTION As Ordered ONE (17:30)
[2023-09-25] MEDS ORDERED: SUGAMMADEX SODIUM 500 MG/5 ML VIAL (BRIDION) As Ordered ONE (17:30)
[2023-09-25] MEDS ORDERED: LIDOCAINE 2% 100MG/5ML SDV (FOR ANES.) As Ordered ONE (17:30)
[2023-09-25] MEDS ORDERED: ONDANSETRON 4MG 2ML VIAL As Ordered ONE (17:30)
[2023-09-25] MEDS ORDERED: SUCCINYLCHOLINE 100MG/5ML SYRINGE As Ordered ONE (17:31)
[2023-09-25] MEDS ORDERED: ACETAMINOPHEN 1000MG 100ML IV BAG As Ordered ONE (17:42)
[2023-09-25] MEDS ORDERED: HYDROmorphone HCL 2MG/ML 1ML VIAL As Ordered ONE (17:57)
[2023-09-25] MEDS ORDERED: LABETALOL 100MG/20ML VIAL As Ordered ONE (18:18)
[2023-09-25] MEDS ORDERED: ALBUTEROL 90 MCG/ACT 8GM HFA INHALER INH PRN (18:40)
[2023-09-25] MEDS ORDERED: oxyCODONE 5MG TAB PO PRN (19:00)
[2023-09-25] MEDS ORDERED: ONDANSETRON 4MG 2ML VIAL IV PRN (19:00)
[2023-09-25] MEDS ORDERED: fentaNYL 100 MCG/2 ML INJECTION IV PRN (19:00)
[2023-09-25] MEDS: HYDROMORPHONE HCL 0.5 MG/ 0.5 ML SYRINGE IV PRN (19:05)
[2023-09-25] MEDS: LR 1,000 ML IV SCH (19:07)
[2023-09-25 19:41] VITALS: BP 141/82; TEMP 97.3; O2SAT 92
[2023-09-25] MEDS: NS 1,000 ML IV SCH (19:59)
[2023-09-25] MEDS: ADVAIR HFA 115/21MCG INHALER INH SCH (20:00)
[2023-09-25 20:15] VITALS: BP 139/81; TEMP 97.3; O2SAT 93
[2023-09-25] MEDS: SUCRALFATE 1 GM TAB PO SCH (20:23)
[2023-09-25] MEDS: rOPINIRole 1MG TAB PO SCH (20:23)
[2023-09-25 20:45] VITALS: BP 140/81; TEMP 97.3; O2SAT 94
[2023-09-25] MEDS: FLUCONAZOLE 400 MG in IV 1 EA IV ONE (21:07)
[2023-09-25 22:00] VITALS: BP 148/88; TEMP 97; O2SAT 94
[2023-09-25] MEDS: MORPHINE 2 MG/ML 1ML VIAL IV PRN (22:09)
[2023-09-25] MEDS: PIPERACILLIN/TAZOBACTAM SOD 3.375 GM in D5W MINI-BAG PLUS 50 ML IV SCH (23:17)
[2023-09-25 23:34] VITALS: BP 144/87; TEMP 97.2; O2SAT 94
[2023-09-26] VITALS (7 sets, daily range): BP systolic 146–173; BP diastolic 67–94; TEMP 97.3–99; O2SAT 89–96
[2023-09-26] MEDS: PANTOPRAZOLE 40MG VIAL IV SCH (08:22)
[2023-09-26] MEDS: ENOXAPARIN 40MG/0.4ML SYRINGE (J1650 PER 10MG) SC SCH (08:22)
[2023-09-26] MEDS: ATORVASTATIN 20 MG TAB PO SCH (08:23)
[2023-09-26] MEDS: lisinopriL 40MG TAB PO SCH (08:24)
[2023-09-26] MEDS: SERTRALINE 100 MG TAB PO SCH (08:24)
[2023-09-26] MEDS: MONTELUKAST 10 MG TAB PO SCH (08:24)
[2023-09-26] MEDS: SPIRONOLACTONE 25 MG TAB PO SCH (08:25)
[2023-09-26 08:34] LABS: HEMATOCRIT 33.7 % (36.0-47.0); HEMOGLOBIN 10.9 g/dl (12.0-15.5); MEAN CORPUSCULAR HEMOGLOBIN 26.1 pg (27.0-33.0); MEAN CORPUSCULAR HGB CONC 32.3 g/dl (32.0-36.5); MEAN CORPUSCULAR VOLUME 80.6 fl (80.0-96.0); RED BLOOD COUNT 4.18 10^6/uL (4.00-5.40); WHITE BLOOD COUNT 12.7 10^3/uL (4.0-10.0)
[2023-09-26 08:46] LABS: PLATELET COUNT, AUTOMATED 216 10^3/uL (150-450)
[2023-09-26 09:10] LABS: CALCIUM LEVEL 8.2 MG/DL (8.3-10.6); GLOMERULAR FILTRATION RATE 59.8 (>45); MAGNESIUM LEVEL 1.7 MG/DL (1.8-2.4); POTASSIUM SERUM 4.5 MMOL/L (3.5-5.1)
[2023-09-26] MEDS: MORPHINE 2 MG/ML 1ML VIAL IV PRN (10:22)
[2023-09-26] MEDS: MAG SULF 1GM/100ML (MAG RUN) 1 GM in IV 1 EA IV ONE (10:57)
[2023-09-26] MEDS: FLUCONAZOLE 200 MG in IV 1 EA IV SCH (20:20)
[2023-09-27 05:08] VITALS: BP 143/79; TEMP 97.9; O2SAT 93
[2023-09-27 07:27] LABS: HEMATOCRIT 30.9 % (36.0-47.0); HEMOGLOBIN 9.8 g/dl (12.0-15.5); MEAN CORPUSCULAR HEMOGLOBIN 25.8 pg (27.0-33.0); MEAN CORPUSCULAR HGB CONC 31.7 g/dl (32.0-36.5); MEAN CORPUSCULAR VOLUME 81.3 fl (80.0-96.0); PLATELET COUNT, AUTOMATED 231 10^3/uL (150-450); WHITE BLOOD COUNT 9.3 10^3/uL (4.0-10.0)
[2023-09-27 07:53] LABS: BLOOD UREA NITROGEN 14 MG/DL (9-23); CALCIUM LEVEL 8.7 MG/DL (8.3-10.6); CARBON DIOXIDE LEVEL 22 MMOL/L (20-31); CHLORIDE LEVEL 112 MMOL/L (98-107); CREATININE FOR GFR 0.98 MG/DL (0.55-1.30); GLOMERULAR FILTRATION RATE > 60.0 (>45); GLUCOSE, FASTING 112 MG/DL (74-106); MAGNESIUM LEVEL 1.9 MG/DL (1.8-2.4); SODIUM LEVEL 140 MMOL/L (136-145)
[2023-09-27 14:00] VITALS: BP 151/81; TEMP 98.1; O2SAT 90
[2023-09-27 21:05] VITALS: BP 149/87; TEMP 97.9; O2SAT 90
[2023-09-28 05:45] VITALS: BP 152/76; TEMP 97.9; O2SAT 91
[2023-09-28 06:19] LABS: HEMATOCRIT 30.4 % (36.0-47.0); HEMOGLOBIN 9.5 g/dl (12.0-15.5); MEAN CORPUSCULAR HEMOGLOBIN 25.3 pg (27.0-33.0); MEAN CORPUSCULAR HGB CONC 31.3 g/dl (32.0-36.5); MEAN CORPUSCULAR VOLUME 80.9 fl (80.0-96.0); PLATELET COUNT, AUTOMATED 245 10^3/uL (150-450); RED BLOOD COUNT 3.76 10^6/uL (4.00-5.40); WHITE BLOOD COUNT 6.9 10^3/uL (4.0-10.0)
[2023-09-28 06:49] LABS: CALCIUM LEVEL 8.4 MG/DL (8.3-10.6); GLOMERULAR FILTRATION RATE 59.8 (>45); MAGNESIUM LEVEL 1.6 MG/DL (1.8-2.4); POTASSIUM SERUM 3.8 MMOL/L (3.5-5.1)
[2023-09-28] MEDS: NORCO, ANEXSIA 5/325MG TABLET (HYDROcodone/ACETAMINOPHEN) PO PRN (09:22)
[2023-09-28] MEDS: OMEPRAZOLE 20MG CAP PO SCH (09:22)
[2023-09-28] MEDS: MAG SULF 1GM/100ML (MAG RUN) 1 GM in IV 1 EA IV ONE (10:33)
[2023-09-28] MEDS ORDERED: GASTROGRAFIN SOLUTION 30ML As Ordered ONE (13:01)
[2023-09-28 14:45] VITALS: BP 162/88; TEMP 98.2; O2SAT 94
[2023-09-28 19:31] VITALS: BP 134/79; TEMP 98.1; O2SAT 94
[2023-09-29 05:29] VITALS: BP 148/81; TEMP 97.7; O2SAT 94
[2023-09-29 08:55] LABS: HEMATOCRIT 32.3 % (36.0-47.0); MEAN CORPUSCULAR HEMOGLOBIN 24.8 pg (27.0-33.0); MEAN CORPUSCULAR VOLUME 80.1 fl (80.0-96.0); PLATELET COUNT, AUTOMATED 261 10^3/uL (150-450); RED BLOOD COUNT 4.03 10^6/uL (4.00-5.40); WHITE BLOOD COUNT 6.8 10^3/uL (4.0-10.0)
[2023-09-29 09:31] LABS: BLOOD UREA NITROGEN 5 MG/DL (9-23); CALCIUM LEVEL 8.6 MG/DL (8.3-10.6); CARBON DIOXIDE LEVEL 22 MMOL/L (20-31); CHLORIDE LEVEL 112 MMOL/L (98-107); CREATININE FOR GFR 0.98 MG/DL (0.55-1.30); GLOMERULAR FILTRATION RATE > 60.0 (>45); GLUCOSE, FASTING 111 MG/DL (74-106); MAGNESIUM LEVEL 1.6 MG/DL (1.8-2.4); POTASSIUM SERUM 3.8 MMOL/L (3.5-5.1); SODIUM LEVEL 143 MMOL/L (136-145)
[2023-09-29] MEDS: ONDANSETRON 4MG 2ML VIAL IV PRN (10:16)
[2023-09-29] MEDS: MAGNESIUM OXIDE 400MG TAB (MAG-OX) PO SCH (12:55)
[2023-09-29 14:11] VITALS: BP 155/84; TEMP 98.1; O2SAT 93
[2023-09-29 20:00] VITALS: BP 153/85; TEMP 98.2; O2SAT 90
[2023-09-30 06:24] LABS: HEMATOCRIT 31.9 % (36.0-47.0); HEMOGLOBIN 10.1 g/dl (12.0-15.5); MEAN CORPUSCULAR HEMOGLOBIN 25.3 pg (27.0-33.0); MEAN CORPUSCULAR HGB CONC 31.7 g/dl (32.0-36.5); MEAN CORPUSCULAR VOLUME 79.8 fl (80.0-96.0); PLATELET COUNT, AUTOMATED 291 10^3/uL (150-450); WHITE BLOOD COUNT 5.9 10^3/uL (4.0-10.0)
[2023-09-30 06:59] LABS: BLOOD UREA NITROGEN < 5 MG/DL (9-23); CALCIUM LEVEL 8.5 MG/DL (8.3-10.6); CARBON DIOXIDE LEVEL 21 MMOL/L (20-31); CHLORIDE LEVEL 112 MMOL/L (98-107); CREATININE FOR GFR 0.98 MG/DL (0.55-1.30); GLOMERULAR FILTRATION RATE > 60.0 (>45); GLUCOSE, FASTING 104 MG/DL (74-106); MAGNESIUM LEVEL 1.8 MG/DL (1.8-2.4); POTASSIUM SERUM 3.2 MMOL/L (3.5-5.1); SODIUM LEVEL 144 MMOL/L (136-145)
[2023-09-30 14:00] VITALS: BP 160/85; TEMP 97.5; O2SAT 90
[2023-09-30] MEDS: KCL 40MEQ in NS 1000ML 1,000 ML IV SCH (14:21)
[2023-09-30 19:40] VITALS: BP 157/80; TEMP 97.9; O2SAT 94
[2023-10-01 05:19] VITALS: BP 164/84; TEMP 98.2; O2SAT 97
[2023-10-01 07:38] LABS: HEMATOCRIT 31.6 % (36.0-47.0); MEAN CORPUSCULAR HEMOGLOBIN 25.3 pg (27.0-33.0); MEAN CORPUSCULAR HGB CONC 31.6 g/dl (32.0-36.5); PLATELET COUNT, AUTOMATED 284 10^3/uL (150-450); RED BLOOD COUNT 3.95 10^6/uL (4.00-5.40); WHITE BLOOD COUNT 6.6 10^3/uL (4.0-10.0)
[2023-10-01 08:03] LABS: BLOOD UREA NITROGEN < 5 MG/DL (9-23); CALCIUM LEVEL 8.5 MG/DL (8.3-10.6); CARBON DIOXIDE LEVEL 21 MMOL/L (20-31); CHLORIDE LEVEL 112 MMOL/L (98-107); CREATININE FOR GFR 0.92 MG/DL (0.55-1.30); GLOMERULAR FILTRATION RATE > 60.0 (>45); GLUCOSE, FASTING 110 MG/DL (74-106); MAGNESIUM LEVEL 1.8 MG/DL (1.8-2.4); POTASSIUM SERUM 3.2 MMOL/L (3.5-5.1); SODIUM LEVEL 142 MMOL/L (136-145)
[2023-10-01] MEDS: KCL 10MEQ/100ML SWI (KRUN) IV SCH (11:06)
[2023-10-01] MEDS ORDERED: POTASSIUM PHOSPHATE INJ 30 MMOL in D5W 500 ML IV ONE (12:00)
[2023-10-01 14:00] VITALS: BP 151/71; TEMP 98.2; O2SAT 95
[2023-10-01 20:31] VITALS: BP 166/87; TEMP 98.6; O2SAT 95
[2023-10-02 06:10] VITALS: BP 169/86; TEMP 98.2; O2SAT 96
[2023-10-02 08:09] LABS: HEMATOCRIT 35.1 % (36.0-47.0); HEMOGLOBIN 10.8 g/dl (12.0-15.5); MEAN CORPUSCULAR HEMOGLOBIN 24.7 pg (27.0-33.0); MEAN CORPUSCULAR HGB CONC 30.8 g/dl (32.0-36.5); MEAN CORPUSCULAR VOLUME 80.3 fl (80.0-96.0); PLATELET COUNT, AUTOMATED 354 10^3/uL (150-450); RED BLOOD COUNT 4.37 10^6/uL (4.00-5.40); WHITE BLOOD COUNT 7.7 10^3/uL (4.0-10.0)
[2023-10-02] MEDS ORDERED: SUCR1TA PO (08:44)
[2023-10-02 08:46] LABS: BLOOD UREA NITROGEN < 5 MG/DL (9-23); CARBON DIOXIDE LEVEL 19 MMOL/L (20-31); CHLORIDE LEVEL 112 MMOL/L (98-107); CREATININE FOR GFR 0.95 MG/DL (0.55-1.30); GLOMERULAR FILTRATION RATE > 60.0 (>45); GLUCOSE, FASTING 101 MG/DL (74-106); MAGNESIUM LEVEL 1.8 MG/DL (1.8-2.4); SODIUM LEVEL 143 MMOL/L (136-145)
[2023-10-02] MEDS: POTASSIUM CHL PWD 20MEQ PACKET PO SCH (09:00)
[2023-10-02 09:06] VITALS: BP 175/85
== END 2023-10-02 11:40 | disposition home or self-care (01) | DRG 223 ==
LOC: EDBD 11:28 → M ED 11:30 → M ED INP 18:40 → M MS5PR 19:40
PROVIDERS: ADMIT Surgery; ATTEND Surgery
PROC: 8E0W4CZ Robotic Assisted Procedure of Trunk Region, Percutaneous Endoscopic Approach (ICD-10-PCS; 2023-09-25)
PROC: 0DUA4JZ Supplement Jejunum with Synthetic Substitute, Percutaneous Endoscopic Approach (ICD-10-PCS; principal; 2023-09-25 15:32)
DX: K28.1 Acute gastrojejunal ulcer with perforation (principal); K65.0 Generalized (acute) peritonitis; Z79.899 Other long term (current) drug therapy; Z88.8 Allergy status to other drugs, medicaments and biological substances

== ENCOUNTER → 2023-10-17 | Outpatient (CLI) | payer OTHER ==
[~2023-10-17] MED LIST changes: +ADVA115A INH; +ATOR1TAB21 PO; +DRIS50003 PO; +FERR325T3 PO; +MONT10TA97 PO; +ROPI0.5T33 PO; +SUCR1TA PO; +ZOLO100T PO
[2023-10-17 10:16] LABS: HEMATOCRIT 39.1 % (36.0-47.0); HEMOGLOBIN 12.4 g/dl (12.0-15.5); MEAN CORPUSCULAR HEMOGLOBIN 24.7 pg (27.0-33.0); MEAN CORPUSCULAR HGB CONC 31.7 g/dl (32.0-36.5); MEAN CORPUSCULAR VOLUME 77.9 fl (80.0-96.0); PLATELET COUNT, AUTOMATED 285 10^3/uL (150-450); RED BLOOD COUNT 5.02 10^6/uL (4.00-5.40); WHITE BLOOD COUNT 6.6 10^3/uL (4.0-10.0)
[2023-10-17 10:46] LABS: ALBUMIN 3.8 G/DL (3.2-5.2); BILIRUBIN,TOTAL 0.4 MG/DL (0.3-1.2); CREATININE FOR GFR 1.06 MG/DL (0.55-1.30); GLOMERULAR FILTRATION RATE 55.9 (>45); POTASSIUM SERUM 3.3 MMOL/L (3.5-5.1)
== END ==
LOC: M LAB 09:27
PROVIDERS: ATTEND Physician Assistant
DX: K28.1 Acute gastrojejunal ulcer with perforation (principal)

== ENCOUNTER → 2023-10-18 | Outpatient (REF) | payer OTHER | LOC: M LAB REF 10:24 | PROVIDERS: ATTEND Physician Assistant | DX: K28.1 Acute gastrojejunal ulcer with perforation (principal) ==

== ENCOUNTER 2023-11-07 09:55 | Day surgery (SDC) | payer OTHER ==
[~2023-11-07] VITALS: Ht 162.6 cm; Wt 117.5 kg
[~2023-11-07 09:55] MED LIST changes: -AZEL0.055; +AZEL1SPR4
[2023-11-07] MEDS ORDERED: propofoL 200 MG/20 ML VIAL As Ordered ONE (11:11)
[2023-11-07] MEDS ORDERED: LIDOCAINE 2% 100MG/5ML SDV (FOR ANES.) As Ordered ONE (11:11)
[2023-11-07] MEDS: NS 1,000 ML IV ONE (11:15)
[2023-11-07] MEDS ORDERED: fentaNYL 100 MCG/2 ML INJECTION As Ordered ONE (12:01)
[2023-11-07 12:46] VITALS: BP 143/80; O2SAT 96
== END 2023-11-07 12:45 | disposition home or self-care (01) ==
LOC: M OPP 09:55
PROVIDERS: ATTEND Surgery
DX: K22.70 Barrett's esophagus without dysplasia (principal); K22.89 Other specified disease of esophagus; K29.70 Gastritis, unspecified, without bleeding; K28.9 Gastrojejunal ulcer, unspecified as acute or chronic, without hemorrhage or perforation; K91.850 Pouchitis; Z98.84 Bariatric surgery status; Z79.02 Long term (current) use of antithrombotics/antiplatelets; Z79.52 Long term (current) use of systemic steroids; Z79.899 Other long term (current) drug therapy; Z88.1 Allergy status to other antibiotic agents; Z88.8 Allergy status to other drugs, medicaments and biological substances; Z91.048 Other nonmedicinal substance allergy status
CPT/HCPCS: 43239; 88305; J3010

== ENCOUNTER → 2024-01-02 | Outpatient (REF) | payer OTHER | LOC: M LAB REF 13:08 | PROVIDERS: ATTEND Family Medicine | DX: D50.9 Iron deficiency anemia, unspecified (principal) ==

== ENCOUNTER → 2024-05-27 | Outpatient (REF) | payer BC ==
[2024-05-27 15:26] LABS: HEMATOCRIT 39.8 % (36.0-47.0); HEMOGLOBIN 12.1 g/dl (12.0-15.5); MEAN CORPUSCULAR HEMOGLOBIN 24.1 pg (27.0-33.0); MEAN CORPUSCULAR HGB CONC 30.4 g/dl (32.0-36.5); MEAN CORPUSCULAR VOLUME 79.3 fl (80.0-96.0); PLATELET COUNT, AUTOMATED 258 10^3/uL (150-450); RED BLOOD COUNT 5.02 10^6/uL (4.00-5.40); WHITE BLOOD COUNT 6.5 10^3/uL (4.0-10.0)
[2024-05-27 15:45] LABS: ALBUMIN 3.7 G/DL (3.2-5.2); BILIRUBIN,TOTAL 0.4 MG/DL (0.3-1.2); CALCIUM LEVEL 9.9 MG/DL (8.3-10.6); CREATININE FOR GFR 1.02 MG/DL (0.55-1.30); GLOMERULAR FILTRATION RATE 58.3 (>45); POTASSIUM SERUM 4.7 MMOL/L (3.5-5.1); TOTAL PROTEIN 7.1 G/DL (5.7-8.2)
[2024-05-27 16:02] LABS: HEMOGLOBIN A1c 6.4 % (4.0-6.0)
== END ==
LOC: M LAB REF 14:53
PROVIDERS: ATTEND Family Medicine
DX: E11.9 Type 2 diabetes mellitus without complications (principal); Z98.84 Bariatric surgery status; D50.9 Iron deficiency anemia, unspecified

== ENCOUNTER → 2024-08-27 | Outpatient (REF) | payer BC ==
[2024-08-27 12:55] LABS: FERRITIN 35.2 NG/ML (7.3-270.7); PERCENT SATURATION 15.3 % (13.2-45.0)
== END ==
LOC: M LAB REF 12:17
PROVIDERS: ATTEND Family Medicine
DX: D50.9 Iron deficiency anemia, unspecified (principal)

== ENCOUNTER → 2025-03-17 | Outpatient (REF) | payer MEDICARE, OTHER ==
[~2025-03-17] MED LIST changes: +AMOX875T2; +LISI40TA10 PO; -LISI40TA4 PO; +PRED20TA
[2025-03-17 13:12] LABS: APPEARANCE, URINE HAZY (CLEAR); BACTERIA, URINE AUTO 2+ (NEGATIVE); BILIRUBIN, URINE AUTO NEGATIVE (NEGATIVE); BLOOD, URINE BLOOD NEGATIVE (NEGATIVE); GLUCOSE, URINE (UA) AUTO NEGATIVE (NEGATIVE); KETONE, URINE AUTO NEGATIVE (NEGATIVE); LEUKOCYTE ESTERASE, URINE AUTO 1+ (NEGATIVE); MUCUS, URINE SMALL (NEGATIVE); NITRITE, URINE AUTO NEGATIVE (NEGATIVE); PROTEIN, URINE AUTO 1+ mg/dL (NEGATIVE); RBC, URINE AUTO 3 /HPF (0-3); SPECIFIC GRAVITY URINE AUTO 1.025 (1.002-1.035); SQUAMOUS EPITHELIAL CELL UR AU 7 /HPF (0-6); UROBILINOGEN, URINE AUTO 2.0 mg/dL (0.0-2.0); WBC, URINE AUTO 35 /HPF (0-3)
== END ==
LOC: M SMT 12:46
PROVIDERS: ATTEND Nurse Practitioner Family
DX: R32 Unspecified urinary incontinence (principal)

== ENCOUNTER → 2025-04-30 | Outpatient (REF) | payer MEDICARE, OTHER ==
[2025-04-30 17:38] LABS: APPEARANCE, URINE CLEAR (CLEAR); BACTERIA, URINE AUTO NEGATIVE (NEGATIVE); BILIRUBIN, URINE AUTO NEGATIVE (NEGATIVE); BLOOD, URINE BLOOD NEGATIVE (NEGATIVE); GLUCOSE, URINE (UA) AUTO NEGATIVE (NEGATIVE); KETONE, URINE AUTO NEGATIVE (NEGATIVE); LEUKOCYTE ESTERASE, URINE AUTO NEGATIVE (NEGATIVE); NITRITE, URINE AUTO NEGATIVE (NEGATIVE); PROTEIN, URINE AUTO NEGATIVE (NEGATIVE); RBC, URINE AUTO 1 /HPF (0-3); SPECIFIC GRAVITY URINE AUTO 1.020 (1.002-1.035); SQUAMOUS EPITHELIAL CELL UR AU 1 /HPF (0-6); UROBILINOGEN, URINE AUTO 0.2 mg/dL (0.0-2.0); WBC, URINE AUTO 3 /HPF (0-3)
== END ==
LOC: M SMT 16:45
PROVIDERS: ATTEND Nurse Practitioner Family
DX: R32 Unspecified urinary incontinence (principal)

== ENCOUNTER → 2025-05-08 | Outpatient (CLI) | payer MEDICARE, OTHER | LOC: M WUC 11:43 | DX: M79.644 Pain in right finger(s) (principal) ==